=== PATIENT | female | born 1935 | race African-American/Black ===

== ENCOUNTER 2016-11-17 19:10 | Inpatient (IN) | payer MEDICARE, MEDICAID ==
[~2016-11-17] VITALS: Ht 160 cm; Wt 53.5 kg
[~2016-11-17 19:10] MED LIST: ACET1TAB12 PO; ASPI-1158 PO; ATOR10TA69 PO; CLOP75TA33 PO; DILT240C92 PO; FURO40TA5 PO; HYDR-3280 PO; LOSA100T14 PO; METO-293 PO; MINO2.5T19 PO; NEPVIT PO; NIFE60TA64 PO; OMEP20CA10 PO; PRAZ5CAP PO; TEMA30CA PO; TRAM50TA3 PO
[2016-11-17 19:30] VITALS: BP 105/83
[2016-11-17 20:00] VITALS: BP 160/68
[2016-11-17] MEDS ORDERED: METO25TA6 PO (20:30)
[2016-11-17] MEDS ORDERED: VALS320T2 PO (20:30)
[2016-11-17] MEDS ORDERED: MORP30TA66 PO (20:30)
[2016-11-17] MEDS ORDERED: POTA20TA82 PO (20:30)
[2016-11-17] MEDS ORDERED: MIRT15TA6 PO (20:30)
[2016-11-17] MEDS ORDERED: DOXA4TAB3 PO (20:30)
[2016-11-17] MEDS ORDERED: LEVOFLOXACIN 500MG PREMIX 100 ML IV SCH (20:45)
[2016-11-17] MEDS ORDERED: ONDANSETRON HCL 4MG/2ML VIAL IV PRN (20:45)
[2016-11-17] MEDS ORDERED: METOCLOPRAMIDE HCL 10MG TABLET PO PRN (20:45)
[2016-11-17] MEDS ORDERED: MEDICATION NOT ON FORMULARY EA (Morphine Sulfate 30 MG) PO SCH (20:45)
[2016-11-17] MEDS ORDERED: TEMAZEPAM 15MG CAPSULE PO PRN (21:45)
[2016-11-17] MEDS: MIRTAZAPINE 15MG TABLET PO SCH (21:54)
[2016-11-17] MEDS: ATORVASTATIN CALCIUM 10MG TABLET PO SCH (21:55)
[2016-11-17] MEDS: DOXAZOSIN MESYLATE 4MG TABLET PO SCH (21:55)
[2016-11-18] VITALS: BP 170/79
[2016-11-18 00:49] LABS: CLARITY URINE CLEAR (CLEAR); COLOR URINE YELLOW (YELLOW); GLUCOSE URINE NEGATIVE (NEGATIVE); KETONES URINE NEGATIVE (NEGATIVE); LEUKOCYTE ESTERASE URINE 1+ (NEGATIVE); NITRITE URINE NEGATIVE (NEGATIVE); OCCULT BLOOD URINE NEGATIVE (NEGATIVE); PH URINE 5.5 (4.5-8.0); PROTEIN URINE 1+ (NEGATIVE); SPECIFIC GRAVITY URINE 1.016 (1.005-1.030); UROBILINOGEN URINE 0.2 E.U./dL (0.2-1.0)
[2016-11-18 04:00] VITALS: BP 156/90
[2016-11-18 06:04] LABS: BASOPHILS % 0.3 % (0.0-2.0); EOSINOPHILS % 2.2 % (0.0-5.0); HEMATOCRIT. 36.5 % (36.0-48.0); HEMOGLOBIN. 12.1 g/dL (12.0-16.0); LYMPHOCYTES % 16.3 % (20.0-50.0); MEAN CORPUSCULAR HEMOGLOBIN 27.5 pg (28.0-32.0); MEAN CORPUSCULAR VOLUME 83.2 fL (81.0-99.0); MEAN PLATELET VOLUME 8.2 fl (7.4-10.4); MONOCYTES % 8.1 % (2.0-8.0); NEUTROPHILS % 73.1 % (40.0-76.0); PLATELET 200 x1000/uL (130-400); RED BLOOD CELL COUNT 4.38 mill/uL (4.2-5.4); RED CELL DISTRIBUTION WIDTH 14.5 % (11.6-14.6)
[2016-11-18 07:41] LABS: CARBON DIOXIDE 22 mEq/L (21-32); CHLORIDE 110 mEq/L (98-107)
[2016-11-18 08:00] VITALS: BP 144/59
[2016-11-18] MEDS ORDERED: ASPIRIN 81MG EC TABLET PO SCH (09:00)
[2016-11-18] MEDS: METOPROLOL TARTRATE 25MG TABLET PO SCH ×2 (09:15→21:00)
[2016-11-18] MEDS: MINOXIDIL 2.5MG TABLET PO SCH (09:15)
[2016-11-18] MEDS: NIFEDIPINE XL 90MG TAB PO SCH (09:15)
[2016-11-18] MEDS: FUROSEMIDE 40MG TABLET PO SCH (09:16)
[2016-11-18] MEDS: LOSARTAN POTASSIUM 100 MG TABLET PO SCH (09:16)
[2016-11-18] MEDS: POTASSIUM CHLORIDE 20MEQ TABLET SR PO SCH (09:16)
[2016-11-18] MEDS: OMEPRAZOLE 20MG CAPSULE EXTENDED RELEASE PO SCH (09:16)
[2016-11-18] MEDS: ENOXAPARIN 30MG/0.3ML SYR SUBCUT SCH (09:16)
[2016-11-18] MEDS ORDERED: NA PHOS,M-B/NA PHOS,DI-BA ENEMA 118ML PR NR (09:30)
[2016-11-18 12:00] VITALS: BP 122/53
[2016-11-18 12:08] LABS: AMMONIA 23 uMol/L (<32)
[2016-11-18 12:28] LABS: T4 FREE 1.14 ng/dL (0.76-1.46)
[2016-11-18] MEDS: DOCUSATE SODIUM 250MG CAPSULE PO SCH (12:39)
[2016-11-18] MEDS: LEVOFLOXACIN 250MG PREMIX 50 ML IV SCH (12:40)
[2016-11-18 12:47] LABS: FOLIC ACID (FOLATE) SERUM 9.4 ng/mL (>5.38)
[2016-11-18] MEDS ORDERED: METOCLOPRAMIDE HCL 5MG TABLET PO PRN (13:53)
[2016-11-18 16:00] VITALS: BP 106/55
[2016-11-18 20:00] VITALS: BP 110/54
[2016-11-18] MEDS ORDERED: LACTULOSE 20G/30ML UDC PO PRN (21:00)
[2016-11-18] MEDS: DOXAZOSIN MESYLATE 4MG TABLET PO SCH (21:55)
[2016-11-18] MEDS: ATORVASTATIN CALCIUM 10MG TABLET PO SCH (21:55)
[2016-11-18] MEDS: HYDROCORTISONE ACETATE 25MG SUPP PR SCH (21:55)
[2016-11-18] MEDS: MIRTAZAPINE 15MG TABLET PO SCH (21:55)
[2016-11-19] VITALS: BP 113/65
[2016-11-19 04:00] VITALS: BP 118/74
[2016-11-19 08:00] VITALS: BP 128/62
[2016-11-19] MEDS: OMEPRAZOLE 20MG CAPSULE EXTENDED RELEASE PO SCH (08:12)
[2016-11-19] MEDS: DOCUSATE SODIUM 250MG CAPSULE PO SCH (08:15)
[2016-11-19] MEDS: CLOPIDOGREL 75MG TABLET PO SCH (08:15)
[2016-11-19] MEDS: MINOXIDIL 2.5MG TABLET PO SCH (08:15)
[2016-11-19] MEDS: LOSARTAN POTASSIUM 100 MG TABLET PO SCH (08:16)
[2016-11-19] MEDS: HYDROCORTISONE ACETATE 25MG SUPP PR SCH ×2 (08:16→21:46)
[2016-11-19] MEDS: METOPROLOL TARTRATE 25MG TABLET PO SCH ×2 (08:16→17:07)
[2016-11-19] MEDS: POTASSIUM CHLORIDE 20MEQ TABLET SR PO SCH (08:16)
[2016-11-19] MEDS: FUROSEMIDE 40MG TABLET PO SCH (08:16)
[2016-11-19] MEDS: NIFEDIPINE XL 90MG TAB PO SCH (08:17)
[2016-11-19] MEDS: ENOXAPARIN 30MG/0.3ML SYR SUBCUT SCH (08:19)
[2016-11-19] MEDS: LEVOFLOXACIN 250MG PREMIX 50 ML IV SCH (11:58)
[2016-11-19 12:00] VITALS: BP 110/67
[2016-11-19] MEDS: ACETAMINOPHEN 325MG TABLET PO PRN (15:47)
[2016-11-19 16:00] VITALS: BP 86/42
[2016-11-19 16:30] LABS: BASOPHILS % 0.4 % (0.0-2.0); EOSINOPHILS % 1.6 % (0.0-5.0); HEMATOCRIT. 32.7 % (36.0-48.0); HEMOGLOBIN. 10.5 g/dL (12.0-16.0); LYMPHOCYTES % 20.6 % (20.0-50.0); MEAN CORPUSCULAR HEMOGLOBIN 27.1 pg (28.0-32.0); MEAN CORPUSCULAR VOLUME 84.4 fL (81.0-99.0); MEAN PLATELET VOLUME 8.2 fl (7.4-10.4); MONOCYTES % 8.7 % (2.0-8.0); NEUTROPHILS % 68.7 % (40.0-76.0); PLATELET 207 x1000/uL (130-400); RED BLOOD CELL COUNT 3.88 mill/uL (4.2-5.4); RED CELL DISTRIBUTION WIDTH 14.9 % (11.6-14.6)
[2016-11-19] MEDS: DOXAZOSIN MESYLATE 4MG TABLET PO SCH (17:07)
[2016-11-19 20:00] VITALS: BP 112/56
[2016-11-19] MEDS: MIRTAZAPINE 15MG TABLET PO SCH (21:46)
[2016-11-19] MEDS: ATORVASTATIN CALCIUM 10MG TABLET PO SCH (21:46)
[2016-11-20] VITALS (7 sets, daily range): BP systolic 107–137; BP diastolic 45–67
[2016-11-20 06:58] LABS: BASOPHILS % 0.5 % (0.0-2.0); EOSINOPHILS % 2.5 % (0.0-5.0); HEMATOCRIT. 29.8 % (36.0-48.0); HEMOGLOBIN. 9.7 g/dL (12.0-16.0); LYMPHOCYTES % 20.6 % (20.0-50.0); MEAN CORPUSCULAR HEMOGLOBIN 27.1 pg (28.0-32.0); MEAN CORPUSCULAR VOLUME 83.3 fL (81.0-99.0); MEAN PLATELET VOLUME 8.1 fl (7.4-10.4); MONOCYTES % 8.5 % (2.0-8.0); NEUTROPHILS % 67.9 % (40.0-76.0); PLATELET 184 x1000/uL (130-400); RED BLOOD CELL COUNT 3.58 mill/uL (4.2-5.4); RED CELL DISTRIBUTION WIDTH 14.4 % (11.6-14.6)
[2016-11-20] MEDS: CLOPIDOGREL 75MG TABLET PO SCH (08:53)
[2016-11-20] MEDS: FAMOTIDINE 20MG TABLET PO SCH (08:53)
[2016-11-20] MEDS: ENOXAPARIN 30MG/0.3ML SYR SUBCUT SCH (08:53)
[2016-11-20] MEDS: DOCUSATE SODIUM 250MG CAPSULE PO SCH (08:53)
[2016-11-20] MEDS: FUROSEMIDE 40MG TABLET PO SCH (08:54)
[2016-11-20] MEDS: HYDROCORTISONE ACETATE 25MG SUPP PR SCH ×2 (08:54→21:39)
[2016-11-20] MEDS: NIFEDIPINE XL 90MG TAB PO SCH (08:54)
[2016-11-20] MEDS: LOSARTAN POTASSIUM 100 MG TABLET PO SCH (08:55)
[2016-11-20] MEDS: MINOXIDIL 2.5MG TABLET PO SCH (08:56)
[2016-11-20] MEDS: POTASSIUM CHLORIDE 20MEQ TABLET SR PO SCH (08:56)
[2016-11-20] MEDS: METOPROLOL TARTRATE 25MG TABLET PO SCH ×2 (08:58→21:39)
[2016-11-20] MEDS: LEVOFLOXACIN 250MG PREMIX 50 ML IV SCH (11:38)
[2016-11-20] MEDS: DEXT 5%/0.45% NACL 1000ML 1,000 ML IV SCH (14:55)
[2016-11-20] MEDS: ACETAMINOPHEN 325MG TABLET PO PRN (15:18)
[2016-11-20] MEDS: ATORVASTATIN CALCIUM 10MG TABLET PO SCH (21:39)
[2016-11-20] MEDS: MIRTAZAPINE 15MG TABLET PO SCH (21:39)
[2016-11-20] MEDS: DOXAZOSIN MESYLATE 4MG TABLET PO SCH (21:39)
[2016-11-21] VITALS: BP 124/61
[2016-11-21 04:00] VITALS: BP 109/66
[2016-11-21] MEDS: DEXT 5%/0.45% NACL 1000ML 1,000 ML IV SCH (05:28)
[2016-11-21 05:52] LABS: BASOPHILS % 0.2 % (0.0-2.0); HEMATOCRIT. 29.3 % (36.0-48.0); HEMOGLOBIN. 9.5 g/dL (12.0-16.0); LYMPHOCYTES % 29.6 % (20.0-50.0); MEAN CORPUSCULAR HEMOGLOBIN 27.6 pg (28.0-32.0); MEAN CORPUSCULAR VOLUME 85.2 fL (81.0-99.0); MEAN PLATELET VOLUME 8.1 fl (7.4-10.4); MONOCYTES % 9.3 % (2.0-8.0); NEUTROPHILS % 57.9 % (40.0-76.0); PLATELET 175 x1000/uL (130-400); RED BLOOD CELL COUNT 3.44 mill/uL (4.2-5.4); RED CELL DISTRIBUTION WIDTH 14.8 % (11.6-14.6)
[2016-11-21 08:00] VITALS: BP 141/70
[2016-11-21] MEDS: MINOXIDIL 2.5MG TABLET PO SCH ×2 (09:00→16:41)
[2016-11-21] MEDS: DOCUSATE SODIUM 250MG CAPSULE PO SCH (09:30)
[2016-11-21] MEDS: NIFEDIPINE XL 90MG TAB PO SCH (09:31)
[2016-11-21] MEDS: CLOPIDOGREL 75MG TABLET PO SCH (09:31)
[2016-11-21] MEDS: METOPROLOL TARTRATE 25MG TABLET PO SCH ×2 (09:31→21:38)
[2016-11-21] MEDS: FAMOTIDINE 20MG TABLET PO SCH (09:32)
[2016-11-21] MEDS: POTASSIUM CHLORIDE 20MEQ TABLET SR PO SCH (09:32)
[2016-11-21] MEDS: ACETAMINOPHEN 325MG TABLET PO PRN (09:32)
[2016-11-21] MEDS: ENOXAPARIN 30MG/0.3ML SYR SUBCUT SCH (09:33)
[2016-11-21] MEDS: HYDROCORTISONE ACETATE 25MG SUPP PR SCH ×2 (09:33→21:37)
[2016-11-21 12:00] VITALS: BP 136/53
[2016-11-21 16:00] VITALS: BP 154/57
[2016-11-21 20:00] VITALS: BP 136/57
[2016-11-21] MEDS: DOXAZOSIN MESYLATE 4MG TABLET PO SCH (21:38)
[2016-11-21] MEDS: MIRTAZAPINE 15MG TABLET PO SCH (21:38)
[2016-11-21] MEDS: ATORVASTATIN CALCIUM 10MG TABLET PO SCH (21:38)
[2016-11-22] VITALS: BP 128/64
[2016-11-22] MEDS: DEXT 5%/0.45% NACL 1000ML 1,000 ML IV SCH ×2 (00:32→19:08)
[2016-11-22 04:00] VITALS: BP 160/62
[2016-11-22 06:34] LABS: BASOPHILS % 0.5 % (0.0-2.0); EOSINOPHILS % 2.6 % (0.0-5.0); HEMATOCRIT. 30.3 % (36.0-48.0); HEMOGLOBIN. 9.7 g/dL (12.0-16.0); LYMPHOCYTES % 23.7 % (20.0-50.0); MEAN CORPUSCULAR HEMOGLOBIN 27.2 pg (28.0-32.0); MEAN CORPUSCULAR VOLUME 84.5 fL (81.0-99.0); MONOCYTES % 8.8 % (2.0-8.0); NEUTROPHILS % 64.4 % (40.0-76.0); PLATELET 185 x1000/uL (130-400); RED BLOOD CELL COUNT 3.58 mill/uL (4.2-5.4); RED CELL DISTRIBUTION WIDTH 14.5 % (11.6-14.6)
[2016-11-22 07:45] VITALS: BP 152/70
[2016-11-22] MEDS: HYDROCORTISONE ACETATE 25MG SUPP PR SCH ×2 (09:00→21:41)
[2016-11-22] MEDS ORDERED: LEVOFLOXACIN 250MG TABLET PO SCH (11:00)
[2016-11-22] MEDS: ENOXAPARIN 30MG/0.3ML SYR SUBCUT SCH (11:36)
[2016-11-22] MEDS: CLOPIDOGREL 75MG TABLET PO SCH (11:36)
[2016-11-22] MEDS: FAMOTIDINE 20MG TABLET PO SCH (11:36)
[2016-11-22] MEDS: METOPROLOL TARTRATE 25MG TABLET PO SCH ×2 (11:37→21:42)
[2016-11-22] MEDS: MINOXIDIL 2.5MG TABLET PO SCH (11:38)
[2016-11-22] MEDS: NIFEDIPINE XL 90MG TAB PO SCH (11:38)
[2016-11-22] MEDS: DOCUSATE SODIUM 250MG CAPSULE PO SCH (11:38)
[2016-11-22] MEDS: ACETAMINOPHEN 325MG TABLET PO PRN ×2 (11:48→21:42)
[2016-11-22 12:00] VITALS: BP 140/56
[2016-11-22 16:00] VITALS: BP 127/55
[2016-11-22 20:00] VITALS: BP 150/65
[2016-11-22] MEDS ORDERED: ATORVASTATIN CALCIUM 20MG TABLET PO SCH (21:00)
[2016-11-22] MEDS: MIRTAZAPINE 15MG TABLET PO SCH (21:41)
[2016-11-22] MEDS: DOXAZOSIN MESYLATE 4MG TABLET PO SCH (21:42)
[2016-11-23] VITALS: BP 113/59
[2016-11-23 04:00] VITALS: BP 103/41
[2016-11-23 07:40] VITALS: BP 122/71
[2016-11-23 08:00] VITALS: BP 122/71
[2016-11-23] MEDS: DOCUSATE SODIUM 250MG CAPSULE PO SCH (09:01)
[2016-11-23] MEDS: METOPROLOL TARTRATE 25MG TABLET PO SCH (09:01)
[2016-11-23] MEDS: MINOXIDIL 2.5MG TABLET PO SCH (09:01)
[2016-11-23] MEDS: CLOPIDOGREL 75MG TABLET PO SCH (09:01)
[2016-11-23] MEDS: FAMOTIDINE 20MG TABLET PO SCH (09:01)
[2016-11-23] MEDS: NIFEDIPINE XL 90MG TAB PO SCH (09:01)
[2016-11-23] MEDS: HYDROCORTISONE ACETATE 25MG SUPP PR SCH (09:02)
[2016-11-23] MEDS: ENOXAPARIN 30MG/0.3ML SYR SUBCUT SCH (09:02)
[2016-11-24] MEDS ORDERED: LEVOFLOXACIN 250MG TABLET PO SCH (11:00)
== END 2016-11-23 11:50 | disposition home or self-care (01) | DRG 682 ==
LOC: 7WST 19:10
PROVIDERS: ADMIT Internal Medicine Nephrology; ATTEND Internal Medicine Nephrology
DX: N17.9 Acute kidney failure, unspecified (principal); G92 Toxic encephalopathy; I43 Cardiomyopathy in diseases classified elsewhere; I13.0 Hypertensive heart and chronic kidney disease with heart failure and stage 1 through stage 4 chronic kidney disease, or unspecified chronic kidney disease; I50.30 Unspecified diastolic (congestive) heart failure; F03.90 Unspecified dementia, unspecified severity, without behavioral disturbance, psychotic disturbance, mood disturbance, and anxiety; N39.0 Urinary tract infection, site not specified; K59.00 Constipation, unspecified; N13.9 Obstructive and reflux uropathy, unspecified; E11.22 Type 2 diabetes mellitus with diabetic chronic kidney disease; D64.9 Anemia, unspecified; E78.00 Pure hypercholesterolemia, unspecified; E78.5 Hyperlipidemia, unspecified; G89.4 Chronic pain syndrome; I34.0 Nonrheumatic mitral (valve) insufficiency; J44.9 Chronic obstructive pulmonary disease, unspecified; K64.9 Unspecified hemorrhoids; N18.2 Chronic kidney disease, stage 2 (mild); Z79.02 Long term (current) use of antithrombotics/antiplatelets; Z79.899 Other long term (current) drug therapy; Z86.73 Personal history of transient ischemic attack (TIA), and cerebral infarction without residual deficits; Z91.19 Patient's noncompliance with other medical treatment and regimen; Z95.0 Presence of cardiac pacemaker
CPT/HCPCS: 36415; 70450; 80048; 80053; 80061; 81001; 82140; 82607; 82746; 83036; 84439; 84443; 84481; 85025; 87086; 93005; 93306; 93880; 97163; 97166; 97530; J1650; J1956; J3490; A4315

== ENCOUNTER 2018-03-07 14:58 | Emergency (ER) | payer MEDICARE, MEDICAID ==
[~2018-03-07] VITALS: Ht 160 cm; Wt 49.0 kg
[~2018-03-07 14:58] MED LIST changes: -ACET1TAB12 PO; -ATOR10TA69 PO; +ATOR20TA65 PO; +CLON0.2T PO; +COR6 PO; -DILT240C92 PO; +DOCU-150 PO; +DOXA4TAB3 PO; +FAMO20TA8 PO; -FURO40TA5 PO; -HYDR-3280 PO; +HYDR100T26 PO; -LOSA100T14 PO; -METO-293 PO; -MINO2.5T19 PO; -NEPVIT PO; -NIFE60TA64 PO; -OMEP20CA10 PO; -PRAZ5CAP PO; -TEMA30CA PO; -TRAM50TA3 PO
[2018-03-07 15:33] VITALS: BP 172/71
== END 2018-03-07 20:20 | disposition left against medical advice (07) ==
LOC: EDBD → ER 14:58
DX: Z53.21 Procedure and treatment not carried out due to patient leaving prior to being seen by health care provider (principal)
CPT/HCPCS: 93005

== ENCOUNTER 2018-04-29 08:17 | Inpatient (IN) | payer MEDICARE, MEDICAID ==
[~2018-04-29] VITALS: Ht 162.6 cm; Wt 48.5 kg
[2018-04-29] MEDS ORDERED: HYDRALAZINE 20MG/ML VIAL IV ONE (09:00)
[2018-04-29] MEDS ORDERED: NITROGLYCERIN 0.4MG TABLET SL SL PRN (09:00)
[2018-04-29] MEDS ORDERED: NITROGLYCERIN OINT 1GM/INCH UDPKT TD ONE (09:00)
[2018-04-29 09:42] LABS: BASOPHILS % 0.4 % (0.0-2.0); EOSINOPHILS % 1.6 % (0.0-5.0); HEMOGLOBIN. 10.5 g/dL (12.0-16.0); LYMPHOCYTES % 18.6 % (20.0-50.0); MEAN CORPUSCULAR HEMOGLOBIN 27.3 pg (28.0-32.0); MEAN CORPUSCULAR VOLUME 86.1 fL (81.0-99.0); MEAN PLATELET VOLUME 7.6 fl (7.4-10.4); MONOCYTES % 4.6 % (2.0-8.0); NEUTROPHILS % 74.8 % (40.0-76.0); PLATELET 151 x1000/uL (130-400); RED BLOOD CELL COUNT 3.83 mill/uL (4.2-5.4); RED CELL DISTRIBUTION WIDTH 15.6 % (11.6-14.6)
[2018-04-29 10:07] LABS: CHLORIDE 120 mEq/L (98-107)
[2018-04-29] MEDS ORDERED: ASPIRIN 325MG TABLET PO ONE (11:30)
[2018-04-29] MEDS ORDERED: FUROSEMIDE 40MG/4ML VIAL IVP ONE (11:30)
[2018-04-29] MEDS ORDERED: ACETAMINOPHEN 650MG/20.3ML UDC PO ONE (13:45)
[2018-04-29 20:30] VITALS: BP 170/75
[2018-04-29] MEDS ORDERED: ACETAMINOPHEN 325MG TABLET PO PRN (22:00)
[2018-04-29] MEDS: CLONIDINE 0.1MG TABLET PO PRN (22:46)
[2018-04-30] VITALS (7 sets, daily range): BP systolic 107–188; BP diastolic 69–98
[2018-04-30] MEDS: HYDRALAZINE HCL 100MG TABLET PO SCH ×3 (05:19→21:05)
[2018-04-30] MEDS: CLONIDINE 0.1MG TABLET PO PRN ×2 (06:22→13:40)
[2018-04-30] MEDS ORDERED: INFLUENZA VIRUS VACCINE(AFLURIA) 0.5ML SYR IM ONE (07:00)
[2018-04-30] MEDS ORDERED: FUROSEMIDE 40MG/4ML VIAL IVP SCH (09:00)
[2018-04-30] MEDS ORDERED: CARVEDILOL 6.25 MG TABLET PO SCH (09:00)
[2018-04-30] MEDS: ASPIRIN 81MG TABLET PO SCH (09:05)
[2018-04-30] MEDS: ENOXAPARIN 30MG/0.3ML SYR SUBCUT SCH (09:05)
[2018-04-30] MEDS: DOCUSATE SODIUM 100MG CAPSULE PO SCH (09:05)
[2018-04-30] MEDS: CLOPIDOGREL 75MG TABLET PO SCH (09:05)
[2018-04-30] MEDS: FAMOTIDINE 20MG TABLET PO SCH (09:08)
[2018-04-30] MEDS: FUROSEMIDE 40MG/4ML VIAL IVP SCH ×2 (10:21→20:37)
[2018-04-30 10:36] LABS: BG BASE EXCESS -6.8 mmol/L (-2.0-2.0); BG CARBOXYHEMOGLOBIN 0.6 % (0.5-1.5); BG DEOXYHEMOGLOBIN 5.7 % (0.0-5.0); BG FRACTION INSPIRED OXYGEN 21; BG METHEMOGLOBIN 0.3 % (0.0-1.5); BG OXYGEN SATURATION 94.2 % (92.0-98.5); BG OXYHEMOGLOBIN 93.4 % (94.0-97.0); BG PCO2 28.4 mmHg (35.0-45.0); BG PH 7.394 (7.350-7.450); BG PO2 70.1 mmHg (75.0-100.0); BG SAMPLE SITE RIGHT RADIAL; BG TOTAL HEMOGLOBIN 10.8 g/dL (12.0-18.0); BG VENT MODE ROOM AIR
[2018-04-30 11:53] LABS: BASOPHILS % 0.4 % (0.0-2.0); EOSINOPHILS % 3.7 % (0.0-5.0); HEMATOCRIT. 32.3 % (36.0-48.0); HEMOGLOBIN. 10.6 g/dL (12.0-16.0); LYMPHOCYTES % 20.4 % (20.0-50.0); MEAN CORPUSCULAR HEMOGLOBIN 27.6 pg (28.0-32.0); MEAN CORPUSCULAR VOLUME 83.9 fL (81.0-99.0); MONOCYTES % 7.4 % (2.0-8.0); NEUTROPHILS % 68.1 % (40.0-76.0); PLATELET 171 x1000/uL (130-400); RED BLOOD CELL COUNT 3.85 mill/uL (4.2-5.4); RED CELL DISTRIBUTION WIDTH 15.5 % (11.6-14.6)
[2018-04-30 16:09] LABS: CREATINE KINASE MB FRACTION 5.1 ng/mL (0.5-3.6)
[2018-04-30 19:07] LABS: ETHANOL BLOOD < 10 mg/dL
[2018-04-30 19:13] LABS: T4 FREE 1.19 ng/dL (0.76-1.46)
[2018-04-30 19:23] LABS: FOLIC ACID (FOLATE) SERUM 12.4 ng/mL (>5.38)
[2018-04-30] MEDS: DOXAZOSIN MESYLATE 4MG TABLET PO SCH (20:28)
[2018-04-30] MEDS: CARVEDILOL 12.5MG TABLET PO SCH (20:29)
[2018-04-30] MEDS: ATORVASTATIN CALCIUM 20MG TABLET PO SCH (20:29)
[2018-05-01] VITALS (7 sets, daily range): BP systolic 152–175; BP diastolic 64–88
[2018-05-01] MEDS: CLONIDINE 0.1MG TABLET PO PRN ×2 (04:31→20:52)
[2018-05-01] MEDS: HYDRALAZINE HCL 100MG TABLET PO SCH ×3 (05:11→21:01)
[2018-05-01] MEDS: FUROSEMIDE 40MG/4ML VIAL IVP SCH ×2 (05:12→08:30)
[2018-05-01 05:48] LABS: BASOPHILS % 0.6 % (0.0-2.0); EOSINOPHILS % 4.2 % (0.0-5.0); HEMATOCRIT. 32.1 % (36.0-48.0); HEMOGLOBIN. 10.4 g/dL (12.0-16.0); LYMPHOCYTES % 30.2 % (20.0-50.0); MEAN CORPUSCULAR HEMOGLOBIN 27.4 pg (28.0-32.0); MEAN CORPUSCULAR VOLUME 84.3 fL (81.0-99.0); MEAN PLATELET VOLUME 8.3 fl (7.4-10.4); MONOCYTES % 8.8 % (2.0-8.0); NEUTROPHILS % 56.2 % (40.0-76.0); PLATELET 160 x1000/uL (130-400); RED BLOOD CELL COUNT 3.81 mill/uL (4.2-5.4); RED CELL DISTRIBUTION WIDTH 15.7 % (11.6-14.6)
[2018-05-01 08:01] LABS: PHOSPHORUS 3.9 mg/dL (2.5-4.9)
[2018-05-01] MEDS: CLOPIDOGREL 75MG TABLET PO SCH (08:29)
[2018-05-01] MEDS: DOCUSATE SODIUM 100MG CAPSULE PO SCH ×3 (08:29→17:06)
[2018-05-01] MEDS: CARVEDILOL 12.5MG TABLET PO SCH ×2 (08:30→20:52)
[2018-05-01] MEDS: ENOXAPARIN 30MG/0.3ML SYR SUBCUT SCH (08:30)
[2018-05-01] MEDS: FAMOTIDINE 20MG TABLET PO SCH (08:30)
[2018-05-01] MEDS: ASPIRIN 81MG TABLET PO SCH (08:30)
[2018-05-01] MEDS ORDERED: SODIUM POLYSTYRENE SULFONATE 15 G/60 ML BOT PO NR (11:30)
[2018-05-01] MEDS: AMLODIPINE 10MG TABLET PO SCH (12:06)
[2018-05-01] MEDS: ATORVASTATIN CALCIUM 20MG TABLET PO SCH (20:51)
[2018-05-01] MEDS: DOXAZOSIN MESYLATE 4MG TABLET PO SCH (20:52)
[2018-05-02 01:40] VITALS: BP 135/72
[2018-05-02 04:00] VITALS: BP 178/92
[2018-05-02] MEDS: FUROSEMIDE 40MG/4ML VIAL IVP SCH ×2 (05:41→17:43)
[2018-05-02] MEDS: HYDRALAZINE HCL 100MG TABLET PO SCH ×3 (05:41→21:02)
[2018-05-02 08:00] VITALS: BP 132/82
[2018-05-02] MEDS: CLOPIDOGREL 75MG TABLET PO SCH (08:37)
[2018-05-02] MEDS: ENOXAPARIN 30MG/0.3ML SYR SUBCUT SCH (08:37)
[2018-05-02] MEDS: FAMOTIDINE 20MG TABLET PO SCH (08:38)
[2018-05-02] MEDS: ASPIRIN 81MG TABLET PO SCH (08:38)
[2018-05-02] MEDS: DOCUSATE SODIUM 100MG CAPSULE PO SCH ×2 (08:38→17:43)
[2018-05-02] MEDS: CARVEDILOL 12.5MG TABLET PO SCH ×2 (08:38→20:25)
[2018-05-02] MEDS: AMLODIPINE 10MG TABLET PO SCH (08:44)
[2018-05-02 08:52] LABS: BASOPHILS % 0.2 % (0.0-2.0); EOSINOPHILS % 4.2 % (0.0-5.0); HEMATOCRIT. 30.6 % (36.0-48.0); LYMPHOCYTES % 36.3 % (20.0-50.0); MEAN CORPUSCULAR HEMOGLOBIN 26.9 pg (28.0-32.0); MEAN CORPUSCULAR VOLUME 82.6 fL (81.0-99.0); MEAN PLATELET VOLUME 7.9 fl (7.4-10.4); MONOCYTES % 9.8 % (2.0-8.0); NEUTROPHILS % 49.5 % (40.0-76.0); PLATELET 158 x1000/uL (130-400); RED CELL DISTRIBUTION WIDTH 15.4 % (11.6-14.6)
[2018-05-02 12:00] VITALS: BP 142/77
[2018-05-02 16:00] VITALS: BP 137/81
[2018-05-02 20:00] VITALS: BP 133/73
[2018-05-02] MEDS: ATORVASTATIN CALCIUM 20MG TABLET PO SCH (20:25)
[2018-05-02] MEDS: DOXAZOSIN MESYLATE 4MG TABLET PO SCH (20:25)
[2018-05-03] VITALS (8 sets, daily range): BP systolic 123–161; BP diastolic 66–81
[2018-05-03] MEDS: FUROSEMIDE 40MG/4ML VIAL IVP SCH ×2 (06:03→17:09)
[2018-05-03] MEDS: HYDRALAZINE HCL 100MG TABLET PO SCH ×3 (06:03→21:44)
[2018-05-03] MEDS: AMLODIPINE 10MG TABLET PO SCH (09:00)
[2018-05-03] MEDS: ENOXAPARIN 30MG/0.3ML SYR SUBCUT SCH (09:17)
[2018-05-03] MEDS: ASPIRIN 81MG TABLET PO SCH (09:18)
[2018-05-03] MEDS: CARVEDILOL 12.5MG TABLET PO SCH (09:18)
[2018-05-03] MEDS: DOCUSATE SODIUM 100MG CAPSULE PO SCH ×2 (09:18→17:09)
[2018-05-03] MEDS: FAMOTIDINE 20MG TABLET PO SCH (09:18)
[2018-05-03] MEDS: CLOPIDOGREL 75MG TABLET PO SCH (09:19)
[2018-05-03 17:06] LABS: BARBITURATE SCREEN Negative ug/mL (Cutoff:0.1); BENZODIAZEPINE SCREEN Negative ng/mL (Cutoff:20); OPIATES SCREEN Negative ng/mL (Cutoff:5); PHENCYCLIDINE SCREEN Negative ng/mL (Cutoff:8)
[2018-05-03] MEDS: ATORVASTATIN CALCIUM 20MG TABLET PO SCH (21:44)
[2018-05-03] MEDS: DOXAZOSIN MESYLATE 4MG TABLET PO SCH (21:44)
[2018-05-03] MEDS: CARVEDILOL 25MG TABLET PO SCH (21:44)
[2018-05-04 04:00] VITALS: BP 145/75
[2018-05-04] MEDS: HYDRALAZINE HCL 100MG TABLET PO SCH ×3 (05:44→21:02)
[2018-05-04] MEDS: FUROSEMIDE 40MG/4ML VIAL IVP SCH ×2 (05:44→16:27)
[2018-05-04 08:00] VITALS: BP 94/70
[2018-05-04] MEDS: DOCUSATE SODIUM 100MG CAPSULE PO SCH ×2 (08:39→17:44)
[2018-05-04] MEDS: CLOPIDOGREL 75MG TABLET PO SCH (08:39)
[2018-05-04] MEDS: FAMOTIDINE 20MG TABLET PO SCH (08:39)
[2018-05-04] MEDS: ASPIRIN 81MG TABLET PO SCH (08:39)
[2018-05-04] MEDS: ENOXAPARIN 30MG/0.3ML SYR SUBCUT SCH (08:40)
[2018-05-04] MEDS: CARVEDILOL 25MG TABLET PO SCH ×2 (08:40→20:11)
[2018-05-04] MEDS: AMLODIPINE 10MG TABLET PO SCH (08:40)
[2018-05-04 12:00] VITALS: BP 108/78
[2018-05-04 16:00] VITALS: BP 156/96
[2018-05-04 20:00] VITALS: BP 164/78
[2018-05-04] MEDS: DOXAZOSIN MESYLATE 4MG TABLET PO SCH (20:11)
[2018-05-04] MEDS: ATORVASTATIN CALCIUM 20MG TABLET PO SCH (20:11)
[2018-05-05] VITALS: BP 135/76
[2018-05-05 04:00] VITALS: BP 157/68
[2018-05-05] MEDS: FUROSEMIDE 40MG/4ML VIAL IVP SCH ×2 (06:34→17:53)
[2018-05-05] MEDS: HYDRALAZINE HCL 100MG TABLET PO SCH ×3 (06:35→21:01)
[2018-05-05 08:00] VITALS: BP 150/75
[2018-05-05] MEDS: FAMOTIDINE 20MG TABLET PO SCH (09:10)
[2018-05-05] MEDS: ASPIRIN 81MG TABLET PO SCH (09:10)
[2018-05-05] MEDS: DOCUSATE SODIUM 100MG CAPSULE PO SCH ×2 (09:10→17:53)
[2018-05-05] MEDS: CLOPIDOGREL 75MG TABLET PO SCH (09:10)
[2018-05-05] MEDS: AMLODIPINE 10MG TABLET PO SCH (09:10)
[2018-05-05] MEDS: CARVEDILOL 25MG TABLET PO SCH ×2 (09:10→21:01)
[2018-05-05] MEDS: ENOXAPARIN 30MG/0.3ML SYR SUBCUT SCH (09:11)
[2018-05-05 11:08] LABS: BASOPHILS % 0.6 % (0.0-2.0); EOSINOPHILS % 3.4 % (0.0-5.0); HEMATOCRIT. 33.5 % (36.0-48.0); HEMOGLOBIN. 10.9 g/dL (12.0-16.0); LYMPHOCYTES % 26.3 % (20.0-50.0); MEAN CORPUSCULAR HEMOGLOBIN 27.3 pg (28.0-32.0); MEAN CORPUSCULAR VOLUME 83.6 fL (81.0-99.0); MONOCYTES % 8.4 % (2.0-8.0); NEUTROPHILS % 61.3 % (40.0-76.0); PLATELET 198 x1000/uL (130-400); RED CELL DISTRIBUTION WIDTH 15.6 % (11.6-14.6)
[2018-05-05 12:00] VITALS: BP 134/60
[2018-05-05 16:00] VITALS: BP 129/69
[2018-05-05 20:00] VITALS: BP 127/73
[2018-05-05] MEDS: DOXAZOSIN MESYLATE 4MG TABLET PO SCH (21:01)
[2018-05-05] MEDS: ATORVASTATIN CALCIUM 20MG TABLET PO SCH (21:01)
[2018-05-06] VITALS: BP 113/69
[2018-05-06 04:00] VITALS: BP 138/64
[2018-05-06] MEDS: HYDRALAZINE HCL 100MG TABLET PO SCH ×3 (05:24→21:37)
[2018-05-06] MEDS: FUROSEMIDE 40MG/4ML VIAL IVP SCH (05:51)
[2018-05-06] MEDS: FAMOTIDINE 20MG TABLET PO SCH (07:48)
[2018-05-06] MEDS: ASPIRIN 81MG TABLET PO SCH (07:48)
[2018-05-06] MEDS: CLOPIDOGREL 75MG TABLET PO SCH (07:48)
[2018-05-06] MEDS: AMLODIPINE 10MG TABLET PO SCH (07:48)
[2018-05-06] MEDS: DOCUSATE SODIUM 100MG CAPSULE PO SCH ×2 (07:48→18:13)
[2018-05-06] MEDS: CARVEDILOL 25MG TABLET PO SCH ×2 (07:49→21:37)
[2018-05-06] MEDS: ENOXAPARIN 30MG/0.3ML SYR SUBCUT SCH (07:50)
[2018-05-06 08:00] VITALS: BP 166/71
[2018-05-06 09:14] LABS: BASOPHILS % 0.5 % (0.0-2.0); EOSINOPHILS % 3.2 % (0.0-5.0); HEMATOCRIT. 32.2 % (36.0-48.0); HEMOGLOBIN. 10.4 g/dL (12.0-16.0); MEAN CORPUSCULAR HEMOGLOBIN 26.7 pg (28.0-32.0); MEAN CORPUSCULAR VOLUME 82.4 fL (81.0-99.0); MEAN PLATELET VOLUME 7.8 fl (7.4-10.4); MONOCYTES % 11.4 % (2.0-8.0); NEUTROPHILS % 57.9 % (40.0-76.0); PLATELET 189 x1000/uL (130-400); RED CELL DISTRIBUTION WIDTH 15.6 % (11.6-14.6)
[2018-05-06] MEDS ORDERED: SODIUM CHLORIDE 0.9% 500 ML IV ONE (10:15)
[2018-05-06] MEDS ORDERED: SODIUM CHLORIDE 0.45% 1,000 ML IV SCH (10:15)
[2018-05-06 12:00] VITALS: BP 110/68
[2018-05-06 16:00] VITALS: BP 126/57
[2018-05-06 20:00] VITALS: BP 120/52
[2018-05-06] MEDS: ATORVASTATIN CALCIUM 20MG TABLET PO SCH (21:37)
[2018-05-06] MEDS: DOXAZOSIN MESYLATE 4MG TABLET PO SCH (21:37)
[2018-05-07] VITALS: BP 128/61
[2018-05-07 04:00] VITALS: BP 136/72
[2018-05-07 05:40] LABS: BASOPHILS % 0.5 % (0.0-2.0); EOSINOPHILS % 3.6 % (0.0-5.0); HEMATOCRIT. 31.6 % (36.0-48.0); HEMOGLOBIN. 10.2 g/dL (12.0-16.0); LYMPHOCYTES % 32.1 % (20.0-50.0); MEAN CORPUSCULAR VOLUME 83.4 fL (81.0-99.0); MEAN PLATELET VOLUME 8.3 fl (7.4-10.4); MONOCYTES % 10.5 % (2.0-8.0); NEUTROPHILS % 53.3 % (40.0-76.0); PLATELET 173 x1000/uL (130-400); RED BLOOD CELL COUNT 3.79 mill/uL (4.2-5.4)
[2018-05-07] MEDS: HYDRALAZINE HCL 100MG TABLET PO SCH ×3 (05:44→21:01)
[2018-05-07 08:00] VITALS: BP 144/66
[2018-05-07] MEDS: DOCUSATE SODIUM 100MG CAPSULE PO SCH ×2 (08:57→18:06)
[2018-05-07] MEDS: CARVEDILOL 25MG TABLET PO SCH ×2 (08:57→20:14)
[2018-05-07] MEDS: AMLODIPINE 10MG TABLET PO SCH (08:57)
[2018-05-07] MEDS: ENOXAPARIN 30MG/0.3ML SYR SUBCUT SCH (08:58)
[2018-05-07] MEDS: CLOPIDOGREL 75MG TABLET PO SCH (08:58)
[2018-05-07] MEDS: ASPIRIN 81MG TABLET PO SCH (08:58)
[2018-05-07] MEDS: FAMOTIDINE 20MG TABLET PO SCH (08:58)
[2018-05-07 12:00] VITALS: BP 114/62
[2018-05-07 16:00] VITALS: BP 120/78
[2018-05-07 20:00] VITALS: BP 129/55
[2018-05-07] MEDS: ATORVASTATIN CALCIUM 20MG TABLET PO SCH (20:14)
[2018-05-07] MEDS: DOXAZOSIN MESYLATE 4MG TABLET PO SCH (20:14)
[2018-05-08] VITALS: BP 126/63
[2018-05-08 04:00] VITALS: BP 145/68
[2018-05-08] MEDS: HYDRALAZINE HCL 100MG TABLET PO SCH ×2 (05:52→14:17)
[2018-05-08 08:00] VITALS: BP 143/69
[2018-05-08] MEDS: ASPIRIN 81MG TABLET PO SCH (08:55)
[2018-05-08] MEDS: AMLODIPINE 10MG TABLET PO SCH (08:55)
[2018-05-08] MEDS: CLOPIDOGREL 75MG TABLET PO SCH (08:55)
[2018-05-08] MEDS: CARVEDILOL 25MG TABLET PO SCH (08:56)
[2018-05-08] MEDS: FAMOTIDINE 20MG TABLET PO SCH (08:56)
[2018-05-08] MEDS: ENOXAPARIN 30MG/0.3ML SYR SUBCUT SCH (08:56)
[2018-05-08] MEDS: DOCUSATE SODIUM 100MG CAPSULE PO SCH (09:00)
[2018-05-08 12:00] VITALS: BP 141/66
[2018-05-08 16:00] VITALS: BP 128/61
== END 2018-05-08 17:46 | disposition home health service (06) | DRG 291 ==
LOC: EDBD → ER 08:23 → EDBEDREQ 11:28 → 7WST 12:05 → EDBEDREQ 12:08 → EDBEDREQTM 12:08 → ENRESERV 19:33
PROVIDERS: ADMIT Internal Medicine Nephrology; ATTEND Internal Medicine Nephrology
PROC: 4A00X4Z Measurement of Central Nervous Electrical Activity, External Approach (ICD-10-PCS; principal; 2018-05-01)
DX: I13.0 Hypertensive heart and chronic kidney disease with heart failure and stage 1 through stage 4 chronic kidney disease, or unspecified chronic kidney disease (principal); G92 Toxic encephalopathy; I50.33 Acute on chronic diastolic (congestive) heart failure; N17.9 Acute kidney failure, unspecified; M94.0 Chondrocostal junction syndrome [Tietze]; D64.9 Anemia, unspecified; E11.22 Type 2 diabetes mellitus with diabetic chronic kidney disease; E78.00 Pure hypercholesterolemia, unspecified; E78.5 Hyperlipidemia, unspecified; G40.909 Epilepsy, unspecified, not intractable, without status epilepticus; N18.2 Chronic kidney disease, stage 2 (mild); F03.90 Unspecified dementia, unspecified severity, without behavioral disturbance, psychotic disturbance, mood disturbance, and anxiety; I25.118 Atherosclerotic heart disease of native coronary artery with other forms of angina pectoris; I25.2 Old myocardial infarction; Z86.73 Personal history of transient ischemic attack (TIA), and cerebral infarction without residual deficits; Z91.19 Patient's noncompliance with other medical treatment and regimen; Z95.810 Presence of automatic (implantable) cardiac defibrillator; Z79.82 Long term (current) use of aspirin; Z79.899 Other long term (current) drug therapy
CPT/HCPCS: 36415; 36600; 71045; 80048; 80061; 80307; 80320; 82140; 82375; 82550; 82553; 82607; 82746; 82805; 83036; 83735; 83880; 84100; 84439; 84443; 84481; 84484; 90686; 93005; 93306; 93970; 96374; 96375; 99285; A6261; J0360; J1650; J1940; G0480

== ENCOUNTER 2018-05-23 13:21 | Inpatient (IN) | payer MEDICAID, MEDICARE ==
[~2018-05-23] VITALS: Ht 160 cm; Wt 51.3 kg
[2018-05-23] MEDS ORDERED: LEVOFLOXACIN 750MG PREMIX 150 ML IV ONE (14:00)
[2018-05-23] MEDS ORDERED: SODIUM CHLORIDE 0.9% 1000ML BAG (SEPSIS BOLUS) IV ONE (14:00)
[2018-05-23 14:12] LABS: BASOPHILS % 0.4 % (0.0-2.0); EOSINOPHILS % 1.5 % (0.0-5.0); HEMATOCRIT. 29.3 % (36.0-48.0); HEMOGLOBIN. 9.6 g/dL (12.0-16.0); LYMPHOCYTES % 19.1 % (20.0-50.0); MEAN CORPUSCULAR HEMOGLOBIN 27.2 pg (28.0-32.0); MEAN CORPUSCULAR VOLUME 83.2 fL (81.0-99.0); MEAN PLATELET VOLUME 7.4 fl (7.4-10.4); MONOCYTES % 5.7 % (2.0-8.0); NEUTROPHILS % 73.3 % (40.0-76.0); PLATELET 157 x1000/uL (130-400); RED BLOOD CELL COUNT 3.52 mill/uL (4.2-5.4); RED CELL DISTRIBUTION WIDTH 15.3 % (11.6-14.6)
[2018-05-23 14:21] LABS: INR 1.1; PARTIAL THROMBOPLASTIN TIME 21.7 sec (23.4-31.0); PROTHROMBIN TIME 11.1 sec (9.6-11.0)
[2018-05-23 14:47] LABS: CHLORIDE 118 mEq/L (98-107)
[2018-05-23] MEDS ORDERED: LEVOFLOXACIN 500MG PREMIX 100 ML IV SCH (16:15)
[2018-05-23] MEDS ORDERED: HYDROMORPHONE HCL/PF 2MG/ML CPJ IV PRN (16:15)
[2018-05-23] MEDS ORDERED: CLONIDINE 0.1MG TABLET PO PRN (16:15)
[2018-05-23] MEDS ORDERED: ACETAMINOPHEN 325MG TABLET PO PRN (16:15)
[2018-05-23] MEDS ORDERED: ASPIRIN 300MG SUPP PR ONE (16:15)
[2018-05-23] MEDS ORDERED: ENOXAPARIN 30MG/0.3ML SYR SUBCUT NR (18:00)
[2018-05-23 21:12] LABS: CLARITY URINE CLEAR (CLEAR); COLOR URINE YELLOW (YELLOW); KETONES URINE NEGATIVE (NEGATIVE); LEUKOCYTE ESTERASE URINE NEGATIVE (NEGATIVE); NITRITE URINE NEGATIVE (NEGATIVE); OCCULT BLOOD URINE NEGATIVE (NEGATIVE); PH URINE 5.5 (4.5-8.0); PROTEIN URINE 1+ (NEGATIVE); SPECIFIC GRAVITY URINE 1.011 (1.005-1.030); UROBILINOGEN URINE 0.2 E.U./dL (0.2-1.0)
[2018-05-23 22:05] VITALS: BP 158/76
[2018-05-23 22:15] VITALS: BP 158/76
[2018-05-23 23:51] VITALS: BP 199/77
[2018-05-24] VITALS (8 sets, daily range): BP systolic 152–189; BP diastolic 53–89
[2018-05-24] MEDS: DEXTROSE 5% WATER 1,000 ML IV SCH ×2 (00:14→22:00)
[2018-05-24] MEDS: IPRATROPIUM/ALBUTEROL 0.5-3(2.5)MG/3ML NEB INH SCH ×4 (01:07→21:41)
[2018-05-24 06:08] LABS: BASOPHILS % 0.6 % (0.0-2.0); EOSINOPHILS % 2.2 % (0.0-5.0); HEMATOCRIT. 29.1 % (36.0-48.0); HEMOGLOBIN. 9.5 g/dL (12.0-16.0); MEAN CORPUSCULAR HEMOGLOBIN 27.3 pg (28.0-32.0); MEAN CORPUSCULAR VOLUME 83.6 fL (81.0-99.0); MONOCYTES % 8.3 % (2.0-8.0); NEUTROPHILS % 67.9 % (40.0-76.0); PLATELET 126 x1000/uL (130-400); RED BLOOD CELL COUNT 3.48 mill/uL (4.2-5.4); RED CELL DISTRIBUTION WIDTH 14.9 % (11.6-14.6)
[2018-05-24 06:37] LABS: CHLORIDE 117 mEq/L (98-107)
[2018-05-24 06:47] LABS: LDL CHOLESTEROL 98 mg/dL (5-100)
[2018-05-24 06:48] LABS: CREATINE KINASE 56 IU/L (26-192)
[2018-05-24 06:49] LABS: HDL CHOLESTEROL 54 mg/dL (40-59)
[2018-05-24] MEDS: HYDRALAZINE HCL 100MG TABLET PO SCH ×3 (07:04→21:43)
[2018-05-24] MEDS: CLOPIDOGREL 75MG TABLET PO SCH (09:00)
[2018-05-24] MEDS: CARVEDILOL 6.25 MG TABLET PO SCH ×2 (09:00→21:44)
[2018-05-24 10:32] LABS: T4 FREE 1.16 ng/dL (0.76-1.46)
[2018-05-24 10:42] LABS: FOLIC ACID (FOLATE) SERUM 19.9 ng/mL (>5.38)
[2018-05-24] MEDS: HYDRALAZINE 20MG/ML VIAL IV SCH ×2 (12:27→18:00)
[2018-05-24] MEDS: LEVOFLOXACIN 250MG PREMIX 50 ML IV SCH (15:19)
[2018-05-24] MEDS ORDERED: VANCOMYCIN 1 G PREMIX 200 ML IV SCH (16:00)
[2018-05-24] MEDS ORDERED: ENOXAPARIN 40MG/0.4ML SYR SUBCUT SCH (16:15)
[2018-05-24] MEDS: DOXAZOSIN MESYLATE 4MG TABLET PO SCH (21:43)
[2018-05-24] MEDS: ENOXAPARIN 30MG/0.3ML SYR SUBCUT SCH (21:43)
[2018-05-24] MEDS: ATORVASTATIN CALCIUM 20MG TABLET PO SCH (21:43)
[2018-05-25] VITALS (7 sets, daily range): BP systolic 158–206; BP diastolic 56–79
[2018-05-25] MEDS: HYDRALAZINE 20MG/ML VIAL IV SCH ×2 (00:41→06:15)
[2018-05-25] MEDS: IPRATROPIUM/ALBUTEROL 0.5-3(2.5)MG/3ML NEB INH SCH ×4 (02:46→21:39)
[2018-05-25] MEDS: HYDRALAZINE HCL 100MG TABLET PO SCH (06:15)
[2018-05-25 09:01] LABS: BASOPHILS % 0.4 % (0.0-2.0); EOSINOPHILS % 1.2 % (0.0-5.0); HEMATOCRIT. 34.5 % (36.0-48.0); HEMOGLOBIN. 11.3 g/dL (12.0-16.0); LYMPHOCYTES % 10.2 % (20.0-50.0); MEAN CORPUSCULAR HEMOGLOBIN 27.1 pg (28.0-32.0); MEAN CORPUSCULAR VOLUME 82.7 fL (81.0-99.0); MEAN PLATELET VOLUME 7.5 fl (7.4-10.4); MONOCYTES % 4.2 % (2.0-8.0); PLATELET 147 x1000/uL (130-400); RED BLOOD CELL COUNT 4.17 mill/uL (4.2-5.4); RED CELL DISTRIBUTION WIDTH 15.2 % (11.6-14.6)
[2018-05-25] MEDS: CLOPIDOGREL 75MG TABLET PO SCH (09:08)
[2018-05-25] MEDS: CARVEDILOL 6.25 MG TABLET PO SCH (09:09)
[2018-05-25] MEDS: HYDRALAZINE 20MG/ML VIAL IV PRN ×2 (11:07→20:35)
[2018-05-25] MEDS ORDERED: CLONIDINE HCL 0.1MG/24HR PATCH TD NR (12:00)
[2018-05-25] MEDS: LEVOFLOXACIN 250MG PREMIX 50 ML IV SCH (13:42)
[2018-05-25] MEDS: CLONIDINE 0.2MG TABLET PO SCH ×2 (16:00→22:00)
[2018-05-25] MEDS ORDERED: VANCOMYCIN 500 MG PREMIX 100 ML IV SCH (16:00)
[2018-05-25] MEDS: VANCOMYCIN 750 MG PREMIX 150 ML IV SCH (16:41)
[2018-05-25] MEDS: NITROGLYCERIN OINT 1GM/INCH UDPKT TD SCH (16:41)
[2018-05-25] MEDS: DEXTROSE 5% WATER 1,000 ML IV SCH (20:35)
[2018-05-25] MEDS: ENOXAPARIN 30MG/0.3ML SYR SUBCUT SCH (20:36)
[2018-05-25] MEDS: DOXAZOSIN MESYLATE 4MG TABLET PO SCH (20:46)
[2018-05-25] MEDS: ATORVASTATIN CALCIUM 20MG TABLET PO SCH (20:46)
[2018-05-25] MEDS: CARVEDILOL 12.5MG TABLET PO SCH (20:46)
[2018-05-26] VITALS: BP 193/61
[2018-05-26] MEDS: NITROGLYCERIN OINT 1GM/INCH UDPKT TD SCH ×3 (00:09→16:52)
[2018-05-26] MEDS ORDERED: ENALAPRIL 2.5MG/2ML VIAL 2ML IV PRN (00:30)
[2018-05-26] MEDS: IPRATROPIUM/ALBUTEROL 0.5-3(2.5)MG/3ML NEB INH SCH ×3 (01:30→21:34)
[2018-05-26 04:00] VITALS: BP 179/81
[2018-05-26] MEDS: HYDRALAZINE 20MG/ML VIAL IV PRN ×2 (04:19→17:03)
[2018-05-26] MEDS: CLONIDINE 0.2MG TABLET PO SCH ×3 (05:34→22:00)
[2018-05-26 05:48] LABS: BASOPHILS % 0.2 % (0.0-2.0); EOSINOPHILS % 3.4 % (0.0-5.0); HEMATOCRIT. 32.7 % (36.0-48.0); HEMOGLOBIN. 10.8 g/dL (12.0-16.0); LYMPHOCYTES % 21.3 % (20.0-50.0); MEAN CORPUSCULAR HEMOGLOBIN 27.3 pg (28.0-32.0); MEAN CORPUSCULAR VOLUME 82.6 fL (81.0-99.0); MONOCYTES % 7.7 % (2.0-8.0); NEUTROPHILS % 67.4 % (40.0-76.0); PLATELET 151 x1000/uL (130-400); RED BLOOD CELL COUNT 3.96 mill/uL (4.2-5.4); RED CELL DISTRIBUTION WIDTH 15.4 % (11.6-14.6)
[2018-05-26] MEDS: VANCOMYCIN 750 MG PREMIX 150 ML IV SCH (07:44)
[2018-05-26 08:00] VITALS: BP 179/76
[2018-05-26] MEDS: CARVEDILOL 12.5MG TABLET PO SCH (09:00)
[2018-05-26] MEDS: CLOPIDOGREL 75MG TABLET PO SCH (09:00)
[2018-05-26 12:00] VITALS: BP 148/79
[2018-05-26] MEDS ORDERED: LABETALOL 5MG/ML SYR 20 MG/4 ML SYRINGE IV SCH (12:00)
[2018-05-26] MEDS ORDERED: SODIUM BICARBONATE 8.4% 1 MEQ/ML 50ML SYR IV SCH (13:45)
[2018-05-26 13:49] LABS: BG BASE EXCESS -6.1 mmol/L (-2.0-2.0); BG CARBOXYHEMOGLOBIN 0.3 % (0.5-1.5); BG DEOXYHEMOGLOBIN 3.7 % (0.0-5.0); BG HCO3 ACT 17.5 mmol/L (22.0-26.0); BG METHEMOGLOBIN 0.5 % (0.0-1.5); BG OXYGEN SATURATION 96.3 % (92.0-98.5); BG OXYHEMOGLOBIN 95.5 % (94.0-97.0); BG PCO2 28.6 mmHg (35.0-45.0); BG PH 7.405 (7.350-7.450); BG PO2 86.9 mmHg (75.0-100.0); BG SAMPLE SITE RIGHT RADIAL; BG TOTAL HEMOGLOBIN 10.8 g/dL (12.0-18.0); BG VENT MODE NASAL CANNULA
[2018-05-26] MEDS: LEVOFLOXACIN 250MG PREMIX 50 ML IV SCH (14:27)
[2018-05-26] MEDS: DEXTROSE 5% WATER 1,000 ML IV SCH (14:36)
[2018-05-26] MEDS: ENALAPRIL 2.5MG/2ML VIAL 2ML IV SCH ×2 (14:43→18:17)
[2018-05-26 16:00] VITALS: BP 185/90
[2018-05-26 20:00] VITALS: BP 181/79
[2018-05-26] MEDS: ENOXAPARIN 30MG/0.3ML SYR SUBCUT SCH (20:32)
[2018-05-26] MEDS: LABETALOL 5MG/ML SYR 20 MG/4 ML SYRINGE IV PRN (20:41)
[2018-05-26] MEDS: DOXAZOSIN MESYLATE 4MG TABLET PO SCH (20:50)
[2018-05-26] MEDS: ATORVASTATIN CALCIUM 20MG TABLET PO SCH (20:50)
[2018-05-27] VITALS (8 sets, daily range): BP systolic 148–198; BP diastolic 50–95
[2018-05-27] MEDS: NITROGLYCERIN OINT 1GM/INCH UDPKT TD SCH ×3 (00:07→18:14)
[2018-05-27] MEDS: ENALAPRIL 2.5MG/2ML VIAL 2ML IV SCH ×4 (00:07→18:13)
[2018-05-27] MEDS: HYDRALAZINE 20MG/ML VIAL IV PRN ×3 (01:33→19:05)
[2018-05-27] MEDS: IPRATROPIUM/ALBUTEROL 0.5-3(2.5)MG/3ML NEB INH SCH ×5 (01:59→20:46)
[2018-05-27] MEDS: DEXTROSE 5% WATER 1,000 ML IV SCH (04:36)
[2018-05-27] MEDS: CLONIDINE 0.2MG TABLET PO SCH ×3 (06:00→19:32)
[2018-05-27 06:12] LABS: BASOPHILS % 0.4 % (0.0-2.0); EOSINOPHILS % 4.5 % (0.0-5.0); HEMATOCRIT. 31.5 % (36.0-48.0); HEMOGLOBIN. 10.5 g/dL (12.0-16.0); LYMPHOCYTES % 18.2 % (20.0-50.0); MEAN CORPUSCULAR HEMOGLOBIN 27.1 pg (28.0-32.0); MEAN CORPUSCULAR VOLUME 81.2 fL (81.0-99.0); MEAN PLATELET VOLUME 7.5 fl (7.4-10.4); MONOCYTES % 7.1 % (2.0-8.0); NEUTROPHILS % 69.8 % (40.0-76.0); PLATELET 175 x1000/uL (130-400); RED BLOOD CELL COUNT 3.88 mill/uL (4.2-5.4); RED CELL DISTRIBUTION WIDTH 15.4 % (11.6-14.6)
[2018-05-27] MEDS: CLOPIDOGREL 75MG TABLET PO SCH (09:00)
[2018-05-27] MEDS: ATORVASTATIN CALCIUM 20MG TABLET PO SCH (19:31)
[2018-05-27] MEDS: DOXAZOSIN MESYLATE 4MG TABLET PO SCH (19:31)
[2018-05-27] MEDS: ENOXAPARIN 30MG/0.3ML SYR SUBCUT SCH (20:31)
[2018-05-27] MEDS: LABETALOL 5MG/ML SYR 20 MG/4 ML SYRINGE IV PRN (20:32)
[2018-05-28] VITALS: BP 168/82
[2018-05-28] MEDS: ENALAPRIL 2.5MG/2ML VIAL 2ML IV SCH ×3 (00:23→13:47)
[2018-05-28] MEDS: DEXTROSE 5% WATER 1,000 ML IV SCH ×2 (00:23→22:11)
[2018-05-28] MEDS: IPRATROPIUM/ALBUTEROL 0.5-3(2.5)MG/3ML NEB INH SCH ×4 (02:05→21:16)
[2018-05-28] MEDS: NITROGLYCERIN OINT 1GM/INCH UDPKT TD SCH ×4 (02:13→23:58)
[2018-05-28] MEDS: HYDRALAZINE 20MG/ML VIAL IV PRN (02:13)
[2018-05-28 04:00] VITALS: BP 182/96
[2018-05-28] MEDS: CLONIDINE 0.2MG TABLET PO SCH ×3 (04:27→21:19)
[2018-05-28 08:00] VITALS: BP 187/80
[2018-05-28] MEDS: CLOPIDOGREL 75MG TABLET PO SCH (09:00)
[2018-05-28 12:00] VITALS: BP 171/81
[2018-05-28 16:00] VITALS: BP 176/88
[2018-05-28] MEDS ORDERED: CLONIDINE HCL 0.3MG/24HR PATCH TD SCH (16:00)
[2018-05-28] MEDS: HYDRALAZINE 20MG/ML VIAL IV SCH ×2 (17:10→22:10)
[2018-05-28 20:00] VITALS: BP 173/80
[2018-05-28] MEDS: ATORVASTATIN CALCIUM 20MG TABLET PO SCH (20:36)
[2018-05-28] MEDS: DOXAZOSIN MESYLATE 4MG TABLET PO SCH (20:36)
[2018-05-29] VITALS: BP 144/60
[2018-05-29] MEDS: ENALAPRIL 2.5MG/2ML VIAL 2ML IV SCH ×4 (00:30→18:30)
[2018-05-29] MEDS: IPRATROPIUM/ALBUTEROL 0.5-3(2.5)MG/3ML NEB INH SCH ×4 (01:42→20:34)
[2018-05-29 04:00] VITALS: BP 150/78
[2018-05-29] MEDS: HYDRALAZINE 20MG/ML VIAL IV SCH ×2 (04:44→10:16)
[2018-05-29] MEDS: CLONIDINE 0.2MG TABLET PO SCH ×3 (05:56→21:04)
[2018-05-29] MEDS ORDERED: CEFAZOLIN 1000MG PREMIX 50 ML IV NR (06:00)
[2018-05-29 07:37] LABS: BASOPHILS % 0.2 % (0.0-2.0); EOSINOPHILS % 2.7 % (0.0-5.0); HEMATOCRIT. 31.8 % (36.0-48.0); HEMOGLOBIN. 10.7 g/dL (12.0-16.0); INR 1.1; LYMPHOCYTES % 18.7 % (20.0-50.0); MEAN CORPUSCULAR HEMOGLOBIN 27.4 pg (28.0-32.0); MEAN CORPUSCULAR VOLUME 81.2 fL (81.0-99.0); MEAN PLATELET VOLUME 7.2 fl (7.4-10.4); MONOCYTES % 8.4 % (2.0-8.0); PARTIAL THROMBOPLASTIN TIME 31.6 sec (23.4-31.0); PLATELET 168 x1000/uL (130-400); PROTHROMBIN TIME 10.8 sec (9.6-11.0); RED BLOOD CELL COUNT 3.91 mill/uL (4.2-5.4)
[2018-05-29 07:47] LABS: PHOSPHORUS 3.4 mg/dL (2.5-4.9)
[2018-05-29 08:00] VITALS: BP_SYST 172; BP_SYST 176; BP_DIAS 76; BP_DIAS 88
[2018-05-29] MEDS: CLOPIDOGREL 75MG TABLET PO SCH (09:00)
[2018-05-29] MEDS: NITROGLYCERIN OINT 1GM/INCH UDPKT TD SCH ×2 (10:23→16:30)
[2018-05-29 12:00] VITALS: BP 162/82
[2018-05-29] MEDS ORDERED: CEFAZOLIN SODIUM 1000MG/VIAL IM ONE (13:30)
[2018-05-29] MEDS ORDERED: BACTERIOSTATIC SODIUM CHLORIDE 0.9% 30ML VIAL IJ ONE (13:34)
[2018-05-29 16:00] VITALS: BP 152/72
[2018-05-29] MEDS ORDERED: MIDAZOLAM HCL 5 MG/5 ML VIAL ONE (16:14)
[2018-05-29] MEDS ORDERED: FENTANYL CITRATE/PF 50MCG/ML 2ML VIAL ONE (16:15)
[2018-05-29] MEDS ORDERED: MIDAZOLAM HCL 5 MG/5 ML VIAL IV PRN (16:19)
[2018-05-29] MEDS: DOXAZOSIN MESYLATE 4MG TABLET PO SCH (21:04)
[2018-05-29] MEDS: ATORVASTATIN CALCIUM 20MG TABLET PO SCH (21:05)
[2018-05-29] MEDS: DEXTROSE 5% WATER 1,000 ML IV SCH (21:38)
[2018-05-30] VITALS: BP 137/81
[2018-05-30] MEDS: ENALAPRIL 2.5MG/2ML VIAL 2ML IV SCH ×3 (00:14→12:30)
[2018-05-30] MEDS: HYDRALAZINE 20MG/ML VIAL IV SCH ×4 (00:20→11:00)
[2018-05-30] MEDS: NITROGLYCERIN OINT 1GM/INCH UDPKT TD SCH ×2 (00:20→09:04)
[2018-05-30 04:00] VITALS: BP 123/55
[2018-05-30] MEDS: CLONIDINE 0.2MG TABLET PO SCH ×2 (05:21→14:00)
[2018-05-30] MEDS: IPRATROPIUM/ALBUTEROL 0.5-3(2.5)MG/3ML NEB INH SCH ×2 (06:00)
[2018-05-30 08:00] VITALS: BP 108/48
[2018-05-30] MEDS: CLOPIDOGREL 75MG TABLET PO SCH (09:06)
[2018-05-30 12:00] VITALS: BP 111/51
[2018-05-30 13:12] LABS: BASOPHILS % 0.1 % (0.0-2.0); EOSINOPHILS % 0.4 % (0.0-5.0); HEMATOCRIT. 31.9 % (36.0-48.0); HEMOGLOBIN. 10.7 g/dL (12.0-16.0); LYMPHOCYTES % 10.9 % (20.0-50.0); MEAN CORPUSCULAR HEMOGLOBIN 27.5 pg (28.0-32.0); MEAN CORPUSCULAR VOLUME 82.1 fL (81.0-99.0); MONOCYTES % 5.1 % (2.0-8.0); NEUTROPHILS % 83.5 % (40.0-76.0); RED BLOOD CELL COUNT 3.89 mill/uL (4.2-5.4); RED CELL DISTRIBUTION WIDTH 15.4 % (11.6-14.6)
[2018-05-30 13:49] LABS: MEAN PLATELET VOLUME 7.9 fl (7.4-10.4); PLATELET 139 x1000/uL (130-400)
[2018-05-30 16:00] VITALS: BP 129/50
[2018-05-30 20:01] VITALS: BP 127/56
[2018-05-30] MEDS ORDERED: CARVEDILOL 3.125 MG TABLET PO SCH (21:00)
== END 2018-05-30 21:05 | DRG 871 ==
LOC: ER 13:21 → 7WST 16:08 → ENRESERV 20:42
PROVIDERS: ADMIT Internal Medicine Nephrology; ATTEND Internal Medicine Nephrology
PROC: 05H533Z Insertion of Infusion Device into Right Subclavian Vein, Percutaneous Approach (ICD-10-PCS; principal; 2018-05-23)
PROC: B546ZZA Ultrasonography of Right Subclavian Vein, Guidance (ICD-10-PCS; 2018-05-23)
PROC: 4A00X4Z Measurement of Central Nervous Electrical Activity, External Approach (ICD-10-PCS; 2018-05-23)
PROC: 0DH63UZ Insertion of Feeding Device into Stomach, Percutaneous Approach (ICD-10-PCS; 2018-05-29)
DX: A41.9 Sepsis, unspecified organism (principal); G92 Toxic encephalopathy; I13.0 Hypertensive heart and chronic kidney disease with heart failure and stage 1 through stage 4 chronic kidney disease, or unspecified chronic kidney disease; E87.2 Acidosis; I50.32 Chronic diastolic (congestive) heart failure; E46 Unspecified protein-calorie malnutrition; I69.354 Hemiplegia and hemiparesis following cerebral infarction affecting left non-dominant side; E11.22 Type 2 diabetes mellitus with diabetic chronic kidney disease; E78.5 Hyperlipidemia, unspecified; E86.0 Dehydration; N18.9 Chronic kidney disease, unspecified; E78.00 Pure hypercholesterolemia, unspecified; D64.9 Anemia, unspecified; F03.90 Unspecified dementia, unspecified severity, without behavioral disturbance, psychotic disturbance, mood disturbance, and anxiety; I25.10 Atherosclerotic heart disease of native coronary artery without angina pectoris; I34.0 Nonrheumatic mitral (valve) insufficiency; I45.81 Long QT syndrome; K44.9 Diaphragmatic hernia without obstruction or gangrene; R13.12 Dysphagia, oropharyngeal phase; Z95.0 Presence of cardiac pacemaker; Z79.82 Long term (current) use of aspirin; Z79.899 Other long term (current) drug therapy; Z68.20 Body mass index [BMI] 20.0-20.9, adult
CPT/HCPCS: 36415; 36569; 36573; 36600; 71045; 80048; 80061; 80202; 82140; 82375; 82550; 82607; 82746; 82805; 82962; 83036; 83605; 83735; 83880; 84100; 84145; 84439; 84443; 84481; 84484; 92610; 93005; 93880; 94640; 96365; 96367; 96375; 97162; 99285; C1725; C1893; J0360; J0690; J1650; J1956; J2250; J3010; J3370; J3490; J7030; J7050; J7070; J7620; A4315

== ENCOUNTER 2018-06-05 12:38 | Inpatient (IN) | payer MEDICARE, MEDICAID ==
[~2018-06-05] VITALS: Ht 160 cm; Wt 53.7 kg
[2018-06-05] VITALS (9 sets, daily range): BP systolic 141–204; BP diastolic 81–102
[2018-06-05] MEDS ORDERED: HYDRALAZINE 20MG/ML VIAL IV ONE ×2 (13:15→17:15)
[2018-06-05 14:10] LABS: BASOPHILS % 0.5 % (0.0-2.0); EOSINOPHILS % 1.1 % (0.0-5.0); HEMATOCRIT. 33.3 % (36.0-48.0); HEMOGLOBIN. 10.9 g/dL (12.0-16.0); MEAN CORPUSCULAR HEMOGLOBIN 26.8 pg (28.0-32.0); MEAN CORPUSCULAR VOLUME 82.1 fL (81.0-99.0); MEAN PLATELET VOLUME 7.6 fl (7.4-10.4); MONOCYTES % 5.6 % (2.0-8.0); NEUTROPHILS % 73.8 % (40.0-76.0); PLATELET 254 x1000/uL (130-400); RED BLOOD CELL COUNT 4.06 mill/uL (4.2-5.4); RED CELL DISTRIBUTION WIDTH 15.3 % (11.6-14.6)
[2018-06-05 14:15] LABS: CHLORIDE 111 mEq/L (98-107)
[2018-06-05 14:18] LABS: PARTIAL THROMBOPLASTIN TIME 26.4 sec (23.4-31.0); PROTHROMBIN TIME 10.3 sec (9.6-11.0)
[2018-06-05] MEDS ORDERED: FUROSEMIDE 20MG/2ML VIAL IVP ONE (15:00)
[2018-06-05] MEDS ORDERED: CLONIDINE 0.1MG TABLET PO NR (16:59)
[2018-06-05] MEDS ORDERED: PIPERACILLIN/TAZ 2.25G PREMIX 50 ML IV SCH (17:00)
[2018-06-05] MEDS ORDERED: DOCUSATE SODIUM 100MG CAPSULE PO PRN (17:00)
[2018-06-05] MEDS ORDERED: ACETAMINOPHEN 325MG TABLET PO PRN (17:00)
[2018-06-05] MEDS ORDERED: MAGNESIUM/ALUMINUM HYDROXIDE/SIMETHICONE 30ML UDC PO PRN (17:00)
[2018-06-05] MEDS ORDERED: HYDROCODONE/ACETAMINOPHEN 5/325MG TABLET PO PRN (17:00)
[2018-06-05] MEDS ORDERED: ENALAPRIL 2.5MG/2ML VIAL 2ML IV PRN (17:00)
[2018-06-05] MEDS ORDERED: IPRATROPIUM/ALBUTEROL 0.5-3(2.5)MG/3ML NEB INH PRN (17:00)
[2018-06-05] MEDS ORDERED: ONDANSETRON HCL 4MG/2ML INJ IV PRN (17:00)
[2018-06-05] MEDS ORDERED: CLONIDINE 0.1MG TABLET PO PRN (17:00)
[2018-06-05] MEDS ORDERED: DIPHENHYDRAMINE 50MG/ML VIAL IV PRN (17:00)
[2018-06-05] MEDS ORDERED: GUAIFENESIN 200MG/10ML SUGAR FREE UDC PO PRN (17:00)
[2018-06-05] MEDS ORDERED: NA PHOS,M-B/NA PHOS,DI-BA ENEMA 118ML PR PRN (17:00)
[2018-06-05] MEDS ORDERED: ACETAMINOPHEN 650MG SUPP PR PRN (17:00)
[2018-06-05] MEDS ORDERED: LORAZEPAM 0.5MG TABLET PO PRN (17:00)
[2018-06-05 17:08] LABS: BG CARBOXYHEMOGLOBIN 0.3 % (0.5-1.5); BG DEOXYHEMOGLOBIN 13.5 % (0.0-5.0); BG METHEMOGLOBIN 0.1 % (0.0-1.5); BG OXYGEN SATURATION 86.4 % (92.0-98.5); BG OXYHEMOGLOBIN 86.1 % (94.0-97.0); BG PCO2 28.2 mmHg (35.0-45.0); BG PH 7.446 (7.350-7.450); BG PO2 48.4 mmHg (75.0-100.0); BG SAMPLE SITE RIGHT BRACHIAL; BG TOTAL HEMOGLOBIN 11.4 g/dL (12.0-18.0); BG VENT MODE NASAL CANNULA
[2018-06-05] MEDS ORDERED: HYDRALAZINE 20MG/ML VIAL IV PRN ×2 (17:15→22:00)
[2018-06-05] MEDS ORDERED: LABETALOL 5MG/ML SYR 20 MG/4 ML SYRINGE IV ONE (18:15)
[2018-06-05] MEDS ORDERED: CLONIDINE 0.2MG TABLET GT SCH (20:45)
[2018-06-05] MEDS ORDERED: CLONIDINE 0.2MG TABLET GT PRN (20:45)
[2018-06-05] MEDS: PIPERACILLIN/TAZ 2.25G PREMIX 50 ML IV SCH (21:54)
[2018-06-05] MEDS ORDERED: ENALAPRIL 1.25MG/ML VIAL 1ML IV SCH (22:30)
[2018-06-05] MEDS: IPRATROPIUM/ALBUTEROL 0.5-3(2.5)MG/3ML NEB INH SCH (23:00)
[2018-06-05] MEDS: AMLODIPINE 5MG TABLET GT SCH (23:24)
[2018-06-05] MEDS: DEXT 5%/0.45% NACL 1000ML 1,000 ML IV SCH (23:25)
[2018-06-05] MEDS: ENOXAPARIN 30MG/0.3ML SYR SUBCUT SCH (23:25)
[2018-06-06] VITALS (23 sets, daily range): BP systolic 116–164; BP diastolic 49–130
[2018-06-06 01:46] LABS: CREATINE KINASE MB FRACTION 1.6 ng/mL (0.5-3.6)
[2018-06-06] MEDS: PIPERACILLIN/TAZ 2.25G PREMIX 50 ML IV SCH ×4 (05:15→21:20)
[2018-06-06 06:04] LABS: CLARITY URINE CLEAR (CLEAR); COLOR URINE YELLOW (YELLOW); KETONES URINE NEGATIVE (NEGATIVE); LEUKOCYTE ESTERASE URINE 2+ (NEGATIVE); NITRITE URINE NEGATIVE (NEGATIVE); OCCULT BLOOD URINE NEGATIVE (NEGATIVE); PROTEIN URINE 1+ (NEGATIVE); SPECIFIC GRAVITY URINE 1.014 (1.005-1.030); UROBILINOGEN URINE 0.2 E.U./dL (0.2-1.0)
[2018-06-06] MEDS: IPRATROPIUM/ALBUTEROL 0.5-3(2.5)MG/3ML NEB INH SCH ×2 (07:19→21:51)
[2018-06-06 07:22] LABS: *AMPHETAMINES SCREEN URINE NEGATIVE (NEGATIVE); *BARBITURATES SCREEN URINE NEGATIVE (NEGATIVE); *BENZODIAZEPINES SCREEN URINE NEGATIVE (NEGATIVE); *COCAINE SCREEN URINE NEGATIVE (NEGATIVE)
[2018-06-06 07:23] LABS: CANNABINOID URINE SCREEN NEGATIVE (NEGATIVE); METHADONE URINE SCREEN NEGATIVE (NEGATIVE); OPIATES URINE SCREEN NEGATIVE (NEGATIVE); PHENCYCLIDINE URINE SCREEN NEGATIVE (NEGATIVE)
[2018-06-06] MEDS: FUROSEMIDE 40MG/4ML VIAL IVP SCH (08:27)
[2018-06-06] MEDS: AMLODIPINE 5MG TABLET GT SCH (08:27)
[2018-06-06] MEDS: ASPIRIN 81MG EC TABLET PO SCH (08:27)
[2018-06-06 09:12] LABS: BASOPHILS % 0.5 % (0.0-2.0); EOSINOPHILS % 0.3 % (0.0-5.0); HEMATOCRIT. 33.8 % (36.0-48.0); HEMOGLOBIN. 10.9 g/dL (12.0-16.0); MEAN CORPUSCULAR HEMOGLOBIN 26.6 pg (28.0-32.0); MEAN CORPUSCULAR VOLUME 82.5 fL (81.0-99.0); MONOCYTES % 6.3 % (2.0-8.0); NEUTROPHILS % 79.9 % (40.0-76.0); RED CELL DISTRIBUTION WIDTH 15.4 % (11.6-14.6)
[2018-06-06 09:27] LABS: CREATINE KINASE MB FRACTION 1.6 ng/mL (0.5-3.6)
[2018-06-06 09:28] LABS: CHLORIDE 110 mEq/L (98-107)
[2018-06-06 09:37] LABS: CREATINE KINASE 71 IU/L (26-192); LDL CHOLESTEROL 76 mg/dL (5-100); T4 FREE 1.28 ng/dL (0.76-1.46)
[2018-06-06 09:38] LABS: HDL CHOLESTEROL 55 mg/dL (40-59)
[2018-06-06 09:59] LABS: PLATELET 247 x1000/uL (130-400)
[2018-06-06] MEDS: FLUCONAZOLE 200 MG/100ML BAG 200 MG in BAG 1 EACH IV SCH (17:49)
[2018-06-06] MEDS: METOPROLOL TARTRATE 25MG TABLET PO SCH (21:20)
[2018-06-06] MEDS: DEXT 5%/0.45% NACL 1000ML 1,000 ML IV SCH (21:21)
[2018-06-06] MEDS ORDERED: DEXTROSE 50% WATER 50ML SYRINGE IV PRN (22:45)
[2018-06-06] MEDS: ENOXAPARIN 30MG/0.3ML SYR SUBCUT SCH (23:33)
[2018-06-07] VITALS (12 sets, daily range): BP systolic 128–174; BP diastolic 72–94
[2018-06-07] MEDS: INSULIN LISPRO 100 UNITS/ML SUBCUT SCH ×5 (01:12→23:32)
[2018-06-07] MEDS: BLOOD SUGAR DIAGNOSTIC STRIP TEST SCH ×5 (01:12→23:32)
[2018-06-07] MEDS: IPRATROPIUM/ALBUTEROL 0.5-3(2.5)MG/3ML NEB INH SCH ×4 (03:15→20:49)
[2018-06-07] MEDS: PIPERACILLIN/TAZ 2.25G PREMIX 50 ML IV SCH ×4 (05:29→21:31)
[2018-06-07 06:47] LABS: HEMOGLOBIN 10.4 g/dL (12.0-16.0); MEAN CORPUSCULAR HEMOGLOBIN 26.9 pg (28.0-32.0); MEAN CORPUSCULAR VOLUME 82.5 fL (81.0-99.0); PLATELET 271 x1000/uL (130-400); RED BLOOD CELL COUNT 3.88 mill/uL (4.2-5.4); RED CELL DISTRIBUTION WIDTH 15.1 % (11.6-14.6)
[2018-06-07] MEDS ORDERED: VANCOMYCIN 1 G PREMIX 200 ML IV SCH (09:00)
[2018-06-07] MEDS: METOPROLOL TARTRATE 25MG TABLET PO SCH ×2 (09:34→21:32)
[2018-06-07] MEDS: ASPIRIN 81MG EC TABLET PO SCH (09:34)
[2018-06-07] MEDS: FUROSEMIDE 40MG/4ML VIAL IVP SCH (09:34)
[2018-06-07] MEDS: AMLODIPINE 5MG TABLET GT SCH (09:35)
[2018-06-07] MEDS: FAMOTIDINE 20MG TABLET GT SCH (09:35)
[2018-06-07] MEDS: CLONIDINE 0.2MG TABLET GT SCH ×2 (09:36→21:31)
[2018-06-07] MEDS: CARVEDILOL 6.25 MG TABLET GT SCH ×2 (09:36→21:31)
[2018-06-07 10:06] LABS: T4 FREE 1.22 ng/dL (0.76-1.46)
[2018-06-07 10:16] LABS: FOLIC ACID (FOLATE) SERUM 18.3 ng/mL (>5.38)
[2018-06-07] MEDS: FLUCONAZOLE 200 MG/100ML BAG 200 MG in BAG 1 EACH IV SCH (16:35)
[2018-06-07] MEDS: DEXT 5%/0.45% NACL 1000ML 1,000 ML IV SCH (16:36)
[2018-06-07] MEDS: ATORVASTATIN CALCIUM 20MG TABLET GT SCH (21:31)
[2018-06-07] MEDS: DOXAZOSIN MESYLATE 4MG TABLET GT SCH (21:32)
[2018-06-07] MEDS: ENOXAPARIN 30MG/0.3ML SYR SUBCUT SCH (23:32)
[2018-06-08] VITALS (12 sets, daily range): BP systolic 118–153; BP diastolic 49–84
[2018-06-08] MEDS: IPRATROPIUM/ALBUTEROL 0.5-3(2.5)MG/3ML NEB INH SCH ×4 (01:40→20:51)
[2018-06-08] MEDS: PIPERACILLIN/TAZ 2.25G PREMIX 50 ML IV SCH ×2 (03:57→10:23)
[2018-06-08] MEDS: BLOOD SUGAR DIAGNOSTIC STRIP TEST SCH ×4 (06:00→23:17)
[2018-06-08] MEDS: INSULIN LISPRO 100 UNITS/ML SUBCUT SCH ×4 (06:00→23:24)
[2018-06-08 07:15] LABS: BASOPHILS % 0.4 % (0.0-2.0); EOSINOPHILS % 1.4 % (0.0-5.0); HEMATOCRIT. 33.1 % (36.0-48.0); HEMOGLOBIN. 10.7 g/dL (12.0-16.0); LYMPHOCYTES % 16.2 % (20.0-50.0); MEAN CORPUSCULAR HEMOGLOBIN 26.5 pg (28.0-32.0); MEAN CORPUSCULAR VOLUME 82.3 fL (81.0-99.0); MEAN PLATELET VOLUME 7.6 fl (7.4-10.4); MONOCYTES % 5.5 % (2.0-8.0); NEUTROPHILS % 76.5 % (40.0-76.0); PLATELET 247 x1000/uL (130-400); RED BLOOD CELL COUNT 4.02 mill/uL (4.2-5.4); RED CELL DISTRIBUTION WIDTH 15.2 % (11.6-14.6)
[2018-06-08] MEDS: FUROSEMIDE 40MG/4ML VIAL IVP SCH (08:49)
[2018-06-08] MEDS: AMLODIPINE 5MG TABLET GT SCH (08:49)
[2018-06-08] MEDS: VANCOMYCIN 750 MG PREMIX 150 ML IV SCH (08:49)
[2018-06-08] MEDS: FAMOTIDINE 20MG TABLET GT SCH (08:50)
[2018-06-08] MEDS: ASPIRIN 81MG EC TABLET PO SCH (08:50)
[2018-06-08] MEDS: CLONIDINE 0.2MG TABLET GT SCH ×2 (08:50→20:21)
[2018-06-08] MEDS: CARVEDILOL 6.25 MG TABLET GT SCH ×2 (08:51→20:21)
[2018-06-08] MEDS: METOPROLOL TARTRATE 25MG TABLET PO SCH ×2 (08:51→20:20)
[2018-06-08] MEDS: DEXT 5%/0.45% NACL 1000ML 1,000 ML IV SCH (17:07)
[2018-06-08] MEDS: FLUCONAZOLE 200 MG/100ML BAG 100 ML IV SCH (17:07)
[2018-06-08] MEDS: DOXAZOSIN MESYLATE 4MG TABLET GT SCH (20:21)
[2018-06-08] MEDS: ATORVASTATIN CALCIUM 20MG TABLET GT SCH (20:21)
[2018-06-08] MEDS: ENOXAPARIN 30MG/0.3ML SYR SUBCUT SCH (23:17)
[2018-06-09] VITALS (10 sets, daily range): BP systolic 121–154; BP diastolic 64–81
[2018-06-09] MEDS: IPRATROPIUM/ALBUTEROL 0.5-3(2.5)MG/3ML NEB INH SCH ×3 (00:21→13:34)
[2018-06-09] MEDS: INSULIN LISPRO 100 UNITS/ML SUBCUT SCH ×2 (06:00→12:00)
[2018-06-09] MEDS: BLOOD SUGAR DIAGNOSTIC STRIP TEST SCH ×2 (06:37→12:08)
[2018-06-09 07:06] LABS: BASOPHILS % 0.3 % (0.0-2.0); EOSINOPHILS % 1.2 % (0.0-5.0); HEMATOCRIT. 30.7 % (36.0-48.0); HEMOGLOBIN. 10.2 g/dL (12.0-16.0); LYMPHOCYTES % 15.7 % (20.0-50.0); MEAN CORPUSCULAR HEMOGLOBIN 27.3 pg (28.0-32.0); MEAN PLATELET VOLUME 7.5 fl (7.4-10.4); MONOCYTES % 7.4 % (2.0-8.0); NEUTROPHILS % 75.4 % (40.0-76.0); PLATELET 237 x1000/uL (130-400); RED BLOOD CELL COUNT 3.75 mill/uL (4.2-5.4); RED CELL DISTRIBUTION WIDTH 15.2 % (11.6-14.6)
[2018-06-09] MEDS: ASPIRIN 81MG EC TABLET PO SCH (08:30)
[2018-06-09] MEDS: AMLODIPINE 5MG TABLET GT SCH (08:30)
[2018-06-09] MEDS: FAMOTIDINE 20MG TABLET GT SCH (08:30)
[2018-06-09] MEDS: CLONIDINE 0.2MG TABLET GT SCH (08:30)
[2018-06-09] MEDS: FUROSEMIDE 40MG/4ML VIAL IVP SCH (08:30)
[2018-06-09] MEDS: CARVEDILOL 6.25 MG TABLET GT SCH (08:31)
[2018-06-09] MEDS: METOPROLOL TARTRATE 25MG TABLET PO SCH (08:31)
[2018-06-09] MEDS: VANCOMYCIN 750 MG PREMIX 150 ML IV SCH (08:32)
[2018-06-09] MEDS: FLUCONAZOLE 200 MG/100ML BAG 100 ML IV SCH (16:21)
== END 2018-06-09 16:50 | DRG 871 ==
LOC: ER 12:38 → 3WST 16:19 → EDUNIT# 16:19 → EDBD 16:19 → EDBEDREQ 16:20 → EDBEDREQSVC 20:20 → ENRESERV 20:58 → 3WST 22:20
PROVIDERS: ADMIT Internal Medicine; ATTEND Internal Medicine Nephrology
DX: A41.9 Sepsis, unspecified organism (principal); G92 Toxic encephalopathy; I13.0 Hypertensive heart and chronic kidney disease with heart failure and stage 1 through stage 4 chronic kidney disease, or unspecified chronic kidney disease; B37.49 Other urogenital candidiasis; D68.59 Other primary thrombophilia; I50.32 Chronic diastolic (congestive) heart failure; I43 Cardiomyopathy in diseases classified elsewhere; I16.0 Hypertensive urgency; G40.909 Epilepsy, unspecified, not intractable, without status epilepticus; B95.7 Other staphylococcus as the cause of diseases classified elsewhere; B96.89 Other specified bacterial agents as the cause of diseases classified elsewhere; D64.9 Anemia, unspecified; E11.22 Type 2 diabetes mellitus with diabetic chronic kidney disease; E86.0 Dehydration; F03.90 Unspecified dementia, unspecified severity, without behavioral disturbance, psychotic disturbance, mood disturbance, and anxiety; N18.3 Chronic kidney disease, stage 3 (moderate); I25.10 Atherosclerotic heart disease of native coronary artery without angina pectoris; I27.20 Pulmonary hypertension, unspecified; R13.10 Dysphagia, unspecified; Z79.899 Other long term (current) drug therapy; Z93.1 Gastrostomy status; Z95.0 Presence of cardiac pacemaker; I69.391 Dysphagia following cerebral infarction
CPT/HCPCS: 36415; 36600; 71045; 80048; 80061; 80305; 82140; 82375; 82550; 82553; 82607; 82746; 82805; 82962; 83036; 83880; 84439; 84443; 84481; 84484; 85027; 87106; 93005; 93306; 93970; 94640; 96374; 96375; 99285; J0360; J1450; J1650; J1815; J1940; J2543; J3370; J3490; J7050; J7620; A4315

== ENCOUNTER 2018-10-01 20:11 | Inpatient (IN) | payer MEDICARE, MEDICAID ==
[~2018-10-01] VITALS: Ht 152.4 cm; Wt 54.4 kg
[2018-10-01] MEDS ORDERED: SODIUM CHLORIDE 0.9% 1000ML BAG (SEPSIS BOLUS) IV ONE (22:30)
[2018-10-01 23:12] LABS: BASOPHILS % 0.2 % (0.0-2.0); EOSINOPHILS % 0.8 % (0.0-5.0); LYMPHOCYTES % 14.8 % (20.0-50.0); MEAN CORPUSCULAR HEMOGLOBIN 27.6 pg (28.0-32.0); MEAN CORPUSCULAR VOLUME 82.1 fL (81.0-99.0); MEAN PLATELET VOLUME 6.3 fl (7.4-10.4); MONOCYTES % 6.8 % (2.0-8.0); NEUTROPHILS % 77.4 % (40.0-76.0); PLATELET 255 x1000/uL (130-400); RED BLOOD CELL COUNT 2.48 mill/uL (4.2-5.4); RED CELL DISTRIBUTION WIDTH 18.5 % (11.6-14.6)
[2018-10-01 23:13] LABS: HEMATOCRIT. 20.4 % (36.0-48.0); HEMOGLOBIN. 6.8 g/dL (12.0-16.0)
[2018-10-01 23:19] LABS: CHLORIDE 97 mEq/L (98-107); PROTHROMBIN TIME 10.7 sec (9.6-11.0)
[2018-10-02] MEDS ORDERED: PIPERACILLIN/TAZ 3.375G PREMIX 50 ML IV NR (00:30)
[2018-10-02] MEDS ORDERED: VANCOMYCIN 1 G PREMIX 200 ML IV ONE (00:30)
[2018-10-02] MEDS ORDERED: VANCOMYCIN 750 MG PREMIX 150 ML IV NR (00:45)
[2018-10-02 05:30] VITALS: BP 176/75
[2018-10-02] MEDS ORDERED: DOCUSATE SODIUM 100MG CAPSULE PO PRN (05:45)
[2018-10-02] MEDS ORDERED: HYDROMORPHONE HCL/PF 2MG/ML CPJ IV PRN (05:45)
[2018-10-02] MEDS ORDERED: PIPERACILLIN/TAZ 3.375G PREMIX 50 ML IV SCH (05:45)
[2018-10-02] MEDS ORDERED: ONDANSETRON HCL 4MG/2ML INJ IV PRN (06:00)
[2018-10-02] MEDS ORDERED: ACETAMINOPHEN 650MG/20.3ML UDC PO PRN (06:00)
[2018-10-02] MEDS ORDERED: DEXTROSE 50% WATER 50ML SYRINGE IV PRN (07:00)
[2018-10-02] MEDS: BLOOD SUGAR DIAGNOSTIC STRIP TEST SCH ×4 (07:05→21:35)
[2018-10-02] MEDS: INSULIN LISPRO 100 UNITS/ML SUBCUT SCH ×4 (07:05→21:00)
[2018-10-02 08:00] VITALS: BP 176/69
[2018-10-02] MEDS: CLONIDINE 0.1MG TABLET PO PRN ×2 (08:43→17:44)
[2018-10-02] MEDS: PIPERACILLIN/TAZOBACTAM 2.25 G in DEXTROSE 5% WATER 50 ML IV SCH ×3 (08:43→20:54)
[2018-10-02 08:55] VITALS: BP 170/70
[2018-10-02 09:30] LABS: CLARITY URINE CLEAR (CLEAR); COLOR URINE YELLOW (YELLOW); KETONES URINE NEGATIVE (NEGATIVE); LEUKOCYTE ESTERASE URINE TRACE (NEGATIVE); NITRITE URINE NEGATIVE (NEGATIVE); OCCULT BLOOD URINE 1+ (NEGATIVE); PH URINE 6.5 (4.5-8.0); PROTEIN URINE 2+ (NEGATIVE); SPECIFIC GRAVITY URINE 1.018 (1.005-1.030)
[2018-10-02 10:30] LABS: TOTAL IRON BINDING CAPACITY 276 ug/dL (250-450)
[2018-10-02 12:00] VITALS: BP 141/71
[2018-10-02] MEDS ORDERED: IPRATROPIUM/ALBUTEROL 0.5-3(2.5)MG/3ML NEB INH SCH (12:00)
[2018-10-02] MEDS ORDERED: IPRATROPIUM/ALBUTEROL 0.5-3(2.5)MG/3ML NEB HHN PRN (14:15)
[2018-10-02] MEDS: HYDRALAZINE HCL 100MG TABLET GT SCH ×2 (15:18→21:02)
[2018-10-02 16:00] VITALS: BP 172/72
[2018-10-02] MEDS ORDERED: SORBITOL 70% SOLN 30ML PO NR ×2 (16:30→20:30)
[2018-10-02] MEDS: CLONIDINE 0.2MG TABLET GT SCH ×2 (17:47→22:48)
[2018-10-02 18:55] LABS: BASOPHILS % 0.4 % (0.0-2.0); EOSINOPHILS % 0.2 % (0.0-5.0); HEMATOCRIT. 30.5 % (36.0-48.0); HEMOGLOBIN. 9.9 g/dL (12.0-16.0); LYMPHOCYTES % 14.9 % (20.0-50.0); MEAN CORPUSCULAR HEMOGLOBIN 27.3 pg (28.0-32.0); MEAN PLATELET VOLUME 6.8 fl (7.4-10.4); MONOCYTES % 6.7 % (2.0-8.0); NEUTROPHILS % 77.8 % (40.0-76.0); PLATELET 250 x1000/uL (130-400); RED BLOOD CELL COUNT 3.63 mill/uL (4.2-5.4); RED CELL DISTRIBUTION WIDTH 18.3 % (11.6-14.6)
[2018-10-02 20:00] VITALS: BP 153/73
[2018-10-02] MEDS: IPRATROPIUM/ALBUTEROL 0.5-3(2.5)MG/3ML NEB HHN SCH (20:28)
[2018-10-02 20:46] LABS: CHLORIDE 100 mEq/L (98-107)
[2018-10-02] MEDS ORDERED: FAMOTIDINE 20MG TABLET GT SCH (21:00)
[2018-10-02] MEDS: ATORVASTATIN CALCIUM 20MG TABLET GT SCH (21:00)
[2018-10-02] MEDS: DOXAZOSIN MESYLATE 4MG TABLET GT SCH (21:01)
[2018-10-02] MEDS: CARVEDILOL 6.25 MG TABLET GT SCH (21:01)
[2018-10-02] MEDS: PANTOPRAZOLE SODIUM 40 MG/VIAL IV SCH (21:26)
[2018-10-03] VITALS (8 sets, daily range): BP systolic 122–151; BP diastolic 57–81
[2018-10-03] MEDS: ACETYLCYSTEINE 100MG/ML 10% VIAL 4ML INH SCH ×3 (00:16→15:42)
[2018-10-03] MEDS: IPRATROPIUM/ALBUTEROL 0.5-3(2.5)MG/3ML NEB HHN SCH ×6 (00:16→20:20)
[2018-10-03] MEDS: PIPERACILLIN/TAZOBACTAM 2.25 G in DEXTROSE 5% WATER 50 ML IV SCH ×4 (01:34→22:09)
[2018-10-03] MEDS: INSULIN LISPRO 100 UNITS/ML SUBCUT SCH ×4 (06:23→21:00)
[2018-10-03] MEDS: BLOOD SUGAR DIAGNOSTIC STRIP TEST SCH ×4 (06:24→21:00)
[2018-10-03] MEDS: CLONIDINE 0.2MG TABLET GT SCH ×3 (06:30→22:11)
[2018-10-03] MEDS: HYDRALAZINE HCL 100MG TABLET GT SCH ×3 (06:30→22:21)
[2018-10-03 06:54] LABS: BASOPHILS % 0.5 % (0.0-2.0); EOSINOPHILS % 1.5 % (0.0-5.0); HEMATOCRIT. 22.4 % (36.0-48.0); HEMOGLOBIN. 7.5 g/dL (12.0-16.0); INR 1.1; LYMPHOCYTES % 19.1 % (20.0-50.0); MEAN CORPUSCULAR HEMOGLOBIN 28.6 pg (28.0-32.0); MEAN CORPUSCULAR VOLUME 85.8 fL (81.0-99.0); MEAN PLATELET VOLUME 6.4 fl (7.4-10.4); MONOCYTES % 8.5 % (2.0-8.0); NEUTROPHILS % 70.4 % (40.0-76.0); PARTIAL THROMBOPLASTIN TIME 33.1 sec (23.4-31.0); PLATELET 245 x1000/uL (130-400); PROTHROMBIN TIME 11.4 sec (9.6-11.0); RED BLOOD CELL COUNT 2.61 mill/uL (4.2-5.4); RED CELL DISTRIBUTION WIDTH 18.4 % (11.6-14.6)
[2018-10-03 07:23] LABS: CHLORIDE 105 mEq/L (98-107)
[2018-10-03 07:37] LABS: LDL CHOLESTEROL 79 mg/dL (5-100)
[2018-10-03 07:39] LABS: HDL CHOLESTEROL 52 mg/dL (40-59)
[2018-10-03] MEDS: CARVEDILOL 6.25 MG TABLET GT SCH ×2 (08:21→22:10)
[2018-10-03] MEDS: PANTOPRAZOLE SODIUM 40 MG/VIAL IV SCH ×2 (08:21→22:10)
[2018-10-03] MEDS ORDERED: MIDAZOLAM HCL 5 MG/5 ML VIAL ONE (16:33)
[2018-10-03] MEDS ORDERED: FENTANYL CITRATE/PF 50MCG/ML 2ML VIAL ONE (16:33)
[2018-10-03] MEDS ORDERED: SIMETHICONE 40 MG/0.6 ML 30ML ONE (16:33)
[2018-10-03] MEDS ORDERED: MIDAZOLAM HCL 5 MG/5 ML VIAL IV PRN (16:47)
[2018-10-03] MEDS ORDERED: EPINEPHRINE 0.1MG/ML (1:10,000) 10ML SYR ONE (16:54)
[2018-10-03 17:19] LABS: METHADONE URINE SCREEN NEGATIVE (NEGATIVE)
[2018-10-03 17:20] LABS: *AMPHETAMINES SCREEN URINE NEGATIVE (NEGATIVE); *BENZODIAZEPINES SCREEN URINE NEGATIVE (NEGATIVE); CANNABINOID URINE SCREEN NEGATIVE (NEGATIVE); PHENCYCLIDINE URINE SCREEN NEGATIVE (NEGATIVE)
[2018-10-03 17:22] LABS: *COCAINE SCREEN URINE NEGATIVE (NEGATIVE)
[2018-10-03 17:28] LABS: *BARBITURATES SCREEN URINE NEGATIVE (NEGATIVE); OPIATES URINE SCREEN NEGATIVE (NEGATIVE)
[2018-10-03] MEDS: DOXAZOSIN MESYLATE 4MG TABLET GT SCH (22:10)
[2018-10-03] MEDS: ATORVASTATIN CALCIUM 20MG TABLET GT SCH (22:11)
[2018-10-04] VITALS (10 sets, daily range): BP systolic 121–145; BP diastolic 54–69
[2018-10-04] MEDS: IPRATROPIUM/ALBUTEROL 0.5-3(2.5)MG/3ML NEB HHN SCH ×6 (00:41→20:05)
[2018-10-04] MEDS: ACETYLCYSTEINE 100MG/ML 10% VIAL 4ML INH SCH ×4 (00:41→15:23)
[2018-10-04] MEDS: PIPERACILLIN/TAZOBACTAM 2.25 G in DEXTROSE 5% WATER 50 ML IV SCH ×4 (03:08→20:42)
[2018-10-04] MEDS: HYDRALAZINE HCL 100MG TABLET GT SCH ×3 (05:14→21:12)
[2018-10-04] MEDS: CLONIDINE 0.2MG TABLET GT SCH ×3 (05:14→21:11)
[2018-10-04] MEDS: BLOOD SUGAR DIAGNOSTIC STRIP TEST SCH ×4 (07:10→21:00)
[2018-10-04] MEDS: INSULIN LISPRO 100 UNITS/ML SUBCUT SCH ×4 (07:40→21:00)
[2018-10-04 09:14] LABS: BASOPHILS % 0.4 % (0.0-2.0); EOSINOPHILS % 1.7 % (0.0-5.0); HEMATOCRIT. 22.3 % (36.0-48.0); HEMOGLOBIN. 7.5 g/dL (12.0-16.0); LYMPHOCYTES % 19.4 % (20.0-50.0); MEAN CORPUSCULAR HEMOGLOBIN 28.1 pg (28.0-32.0); MEAN CORPUSCULAR VOLUME 83.8 fL (81.0-99.0); MEAN PLATELET VOLUME 6.4 fl (7.4-10.4); MONOCYTES % 5.7 % (2.0-8.0); NEUTROPHILS % 72.8 % (40.0-76.0); PLATELET 240 x1000/uL (130-400); RED BLOOD CELL COUNT 2.66 mill/uL (4.2-5.4)
[2018-10-04 09:59] LABS: CHLORIDE 103 mEq/L (98-107)
[2018-10-04] MEDS: CARVEDILOL 6.25 MG TABLET GT SCH ×2 (10:18→21:11)
[2018-10-04] MEDS: CLONIDINE 0.1MG TABLET PO PRN (15:04)
[2018-10-04] MEDS: ATORVASTATIN CALCIUM 20MG TABLET GT SCH (21:11)
[2018-10-04] MEDS: DOXAZOSIN MESYLATE 4MG TABLET GT SCH (21:11)
[2018-10-04 21:36] LABS: HEMATOCRIT 28.7 % (36.0-48.0); HEMOGLOBIN 9.3 g/dL (12.0-16.0); MEAN CORPUSCULAR HEMOGLOBIN 27.7 pg (28.0-32.0); MEAN CORPUSCULAR VOLUME 85.5 fL (81.0-99.0); PLATELET 250 x1000/uL (130-400); RED BLOOD CELL COUNT 3.36 mill/uL (4.2-5.4); RED CELL DISTRIBUTION WIDTH 17.9 % (11.6-14.6)
[2018-10-04 21:52] LABS: D-DIMER 2.06 mg/L FEU (<0.50)
[2018-10-05] VITALS: BP 144/62
[2018-10-05] MEDS: IPRATROPIUM/ALBUTEROL 0.5-3(2.5)MG/3ML NEB HHN SCH ×5 (00:20→16:44)
[2018-10-05] MEDS: ACETYLCYSTEINE 100MG/ML 10% VIAL 4ML INH SCH ×3 (00:30→16:44)
[2018-10-05] MEDS: PIPERACILLIN/TAZOBACTAM 2.25 G in DEXTROSE 5% WATER 50 ML IV SCH ×2 (01:09→10:28)
[2018-10-05 04:00] VITALS: BP 167/77
[2018-10-05] MEDS: HYDRALAZINE HCL 100MG TABLET GT SCH (05:54)
[2018-10-05] MEDS: CLONIDINE 0.2MG TABLET GT SCH (05:54)
[2018-10-05] MEDS: BLOOD SUGAR DIAGNOSTIC STRIP TEST SCH (06:53)
[2018-10-05] MEDS: INSULIN LISPRO 100 UNITS/ML SUBCUT SCH (06:53)
[2018-10-05 07:13] LABS: CHLORIDE 104 mEq/L (98-107)
[2018-10-05 07:51] LABS: BASOPHILS % 0.7 % (0.0-2.0); HEMATOCRIT. 27.8 % (36.0-48.0); HEMOGLOBIN. 9.3 g/dL (12.0-16.0); MEAN CORPUSCULAR HEMOGLOBIN 28.1 pg (28.0-32.0); MEAN CORPUSCULAR VOLUME 84.1 fL (81.0-99.0); MEAN PLATELET VOLUME 6.3 fl (7.4-10.4); NEUTROPHILS % 79.3 % (40.0-76.0); PLATELET 228 x1000/uL (130-400); RED CELL DISTRIBUTION WIDTH 17.9 % (11.6-14.6)
[2018-10-05 08:00] VITALS: BP 149/68
[2018-10-05] MEDS: CARVEDILOL 6.25 MG TABLET GT SCH (10:28)
[2018-10-05 12:00] VITALS: BP 148/74
[2018-10-05 16:00] VITALS: BP 157/67
[2018-10-05 16:43] VITALS: BP 157/67
== END 2018-10-05 17:45 | DRG 871 ==
LOC: ER 20:11 → 8WST 10-02 00:45 → EDBD 10-02 00:45 → EDBEDREQ 10-02 00:47 → EDBEDREQTM 10-02 00:47 → EDBEDREQDT 10-02 00:47 → EDBEDREQSVC 10-02 00:47 → ENRESERV 10-02 01:22
PROVIDERS: ADMIT Internal Medicine Nephrology; ATTEND Internal Medicine Nephrology
PROC: 30233N1 Transfusion of Nonautologous Red Blood Cells into Peripheral Vein, Percutaneous Approach (ICD-10-PCS; principal; 2018-10-02)
PROC: 0DB68ZX Excision of Stomach, Via Natural or Artificial Opening Endoscopic, Diagnostic (ICD-10-PCS; 2018-10-02)
PROC: 3E0G8GC Introduction of Other Therapeutic Substance into Upper GI, Via Natural or Artificial Opening Endoscopic (ICD-10-PCS; 2018-10-02)
PROC: 0DJD8ZZ Inspection of Lower Intestinal Tract, Via Natural or Artificial Opening Endoscopic (ICD-10-PCS; 2018-10-03)
DX: A41.9 Sepsis, unspecified organism (principal); E43 Unspecified severe protein-calorie malnutrition; J69.0 Pneumonitis due to inhalation of food and vomit; J96.00 Acute respiratory failure, unspecified whether with hypoxia or hypercapnia; E87.1 Hypo-osmolality and hyponatremia; N39.0 Urinary tract infection, site not specified; G93.40 Encephalopathy, unspecified; I13.0 Hypertensive heart and chronic kidney disease with heart failure and stage 1 through stage 4 chronic kidney disease, or unspecified chronic kidney disease; T82.7XXA Infection and inflammatory reaction due to other cardiac and vascular devices, implants and grafts, initial encounter; D64.9 Anemia, unspecified; K26.9 Duodenal ulcer, unspecified as acute or chronic, without hemorrhage or perforation; K29.70 Gastritis, unspecified, without bleeding; K44.9 Diaphragmatic hernia without obstruction or gangrene; E11.22 Type 2 diabetes mellitus with diabetic chronic kidney disease; E78.00 Pure hypercholesterolemia, unspecified; E78.5 Hyperlipidemia, unspecified; E87.5 Hyperkalemia; K57.30 Diverticulosis of large intestine without perforation or abscess without bleeding; F03.90 Unspecified dementia, unspecified severity, without behavioral disturbance, psychotic disturbance, mood disturbance, and anxiety; I25.10 Atherosclerotic heart disease of native coronary artery without angina pectoris; K64.8 Other hemorrhoids; I50.9 Heart failure, unspecified; R47.02 Dysphasia; N18.9 Chronic kidney disease, unspecified; L89.159 Pressure ulcer of sacral region, unspecified stage; I27.20 Pulmonary hypertension, unspecified; I08.0 Rheumatic disorders of both mitral and aortic valves; Y71.8 Miscellaneous cardiovascular devices associated with adverse incidents, not elsewhere classified; Y92.89 Other specified places as the place of occurrence of the external cause; Z86.718 Personal history of other venous thrombosis and embolism; Z86.73 Personal history of transient ischemic attack (TIA), and cerebral infarction without residual deficits; Z93.1 Gastrostomy status; Z95.0 Presence of cardiac pacemaker; Z79.01 Long term (current) use of anticoagulants; Z79.02 Long term (current) use of antithrombotics/antiplatelets; Z79.899 Other long term (current) drug therapy; Z68.23 Body mass index [BMI] 23.0-23.9, adult; Z79.82 Long term (current) use of aspirin
CPT/HCPCS: 36415; 71045; 74018; 80048; 80061; 80305; 81003; 82270; 82962; 83540; 83550; 83605; 84145; 84484; 85027; 85049; 85379; 85384; 86850; 86900; 86920; 88305; 93005; 93306; 93970; 94640; 96374; 99285; C9113; J2250; J2543; J3010; J3370; J3490; J7030; J7060; J7608; J7620; P9016; P9021

== ENCOUNTER 2018-11-16 16:41 | Inpatient (IN) | payer MEDICARE, MEDICAID ==
[~2018-11-16] VITALS: Ht 157.5 cm; Wt 56.8 kg
[2018-11-16] MEDS ORDERED: PIPERACILLIN/TAZ 3.375G PREMIX 50 ML IV ONE (17:15)
[2018-11-16] MEDS ORDERED: VANCOMYCIN 1 G PREMIX 200 ML IV ONE (17:15)
[2018-11-16] MEDS ORDERED: SODIUM CHLORIDE 0.9% 1000ML BAG (SEPSIS BOLUS) IV ONE (17:15)
[2018-11-16 18:25] LABS: BASOPHILS % 0.4 % (0.0-2.0); EOSINOPHILS % 3.9 % (0.0-5.0); HEMATOCRIT. 31.6 % (36.0-48.0); HEMOGLOBIN. 10.2 g/dL (12.0-16.0); LYMPHOCYTES % 16.1 % (20.0-50.0); MEAN CORPUSCULAR HEMOGLOBIN 26.5 pg (28.0-32.0); MEAN CORPUSCULAR VOLUME 82.5 fL (81.0-99.0); MEAN PLATELET VOLUME 7.4 fl (7.4-10.4); MONOCYTES % 2.8 % (2.0-8.0); NEUTROPHILS % 76.8 % (40.0-76.0); PLATELET 206 x1000/uL (130-400); RED BLOOD CELL COUNT 3.83 mill/uL (4.2-5.4); RED CELL DISTRIBUTION WIDTH 17.4 % (11.6-14.6)
[2018-11-16 18:32] LABS: CHLORIDE 107 mEq/L (98-107)
[2018-11-16 18:35] LABS: INR 1.1; PARTIAL THROMBOPLASTIN TIME 24.7 sec (23.4-31.0); PROTHROMBIN TIME 10.9 sec (9.6-11.0)
[2018-11-16 19:03] LABS: CLARITY URINE CLOUDY (CLEAR); COLOR URINE YELLOW (YELLOW); KETONES URINE NEGATIVE (NEGATIVE); LEUKOCYTE ESTERASE URINE 3+ (NEGATIVE); NITRITE URINE POSITIVE (NEGATIVE); OCCULT BLOOD URINE NEGATIVE (NEGATIVE); PROTEIN URINE 1+ (NEGATIVE); SPECIFIC GRAVITY URINE 1.016 (1.005-1.030)
[2018-11-16 22:00] VITALS: BP 165/89
[2018-11-16] MEDS ORDERED: ONDANSETRON HCL 4MG/2ML INJ IV PRN (22:45)
[2018-11-16] MEDS ORDERED: ACETAMINOPHEN 650MG/20.3ML UDC GT PRN (22:45)
[2018-11-17 01:20] VITALS: BP 165/89
[2018-11-17] MEDS ORDERED: CEFTRIAXONE 1 G PREMIX 50 ML IV SCH (02:00)
[2018-11-17 04:00] VITALS: BP 154/74
[2018-11-17 06:26] LABS: BASOPHILS % 0.4 % (0.0-2.0); EOSINOPHILS % 5.1 % (0.0-5.0); HEMATOCRIT. 24.7 % (36.0-48.0); LYMPHOCYTES % 21.6 % (20.0-50.0); MEAN CORPUSCULAR HEMOGLOBIN 26.5 pg (28.0-32.0); MEAN CORPUSCULAR VOLUME 82.1 fL (81.0-99.0); MEAN PLATELET VOLUME 7.4 fl (7.4-10.4); MONOCYTES % 6.8 % (2.0-8.0); NEUTROPHILS % 66.1 % (40.0-76.0); PLATELET 203 x1000/uL (130-400); RED BLOOD CELL COUNT 3.01 mill/uL (4.2-5.4); RED CELL DISTRIBUTION WIDTH 17.2 % (11.6-14.6)
[2018-11-17 06:28] LABS: CHLORIDE 111 mEq/L (98-107)
[2018-11-17 08:00] VITALS: BP 175/86
[2018-11-17] MEDS: ASPIRIN 81MG EC TABLET PO SCH (08:57)
[2018-11-17] MEDS: CLOPIDOGREL 75MG TABLET PO SCH (09:00)
[2018-11-17] MEDS ORDERED: ENOXAPARIN 40MG/0.4ML SYR SUBCUT SCH (09:00)
[2018-11-17] MEDS: DOCUSATE SODIUM 100MG CAPSULE PO SCH ×2 (09:02→17:57)
[2018-11-17] MEDS: ATORVASTATIN CALCIUM 20MG TABLET PO SCH (09:03)
[2018-11-17] MEDS: CARVEDILOL 6.25 MG TABLET PO SCH ×2 (09:03→22:43)
[2018-11-17] MEDS: FAMOTIDINE 20MG TABLET PO SCH (09:03)
[2018-11-17] MEDS: CLONIDINE 0.2MG TABLET PO SCH ×2 (09:04→17:54)
[2018-11-17] MEDS: IPRATROPIUM/ALBUTEROL 0.5-3(2.5)MG/3ML NEB NEB SCH ×3 (09:38→21:56)
[2018-11-17 12:00] VITALS: BP 172/80
[2018-11-17] MEDS ORDERED: DEXTROSE 50% WATER 50ML SYRINGE IV PRN (12:00)
[2018-11-17] MEDS: CLONIDINE 0.1MG TABLET PO PRN (12:04)
[2018-11-17] MEDS: BLOOD SUGAR DIAGNOSTIC STRIP TEST SCH ×2 (12:13→17:00)
[2018-11-17] MEDS: INSULIN LISPRO 100 UNITS/ML SUBCUT SCH ×2 (12:14→17:00)
[2018-11-17] MEDS: HYDRALAZINE HCL 100MG TABLET PO SCH ×2 (13:00→23:27)
[2018-11-17] MEDS: ENOXAPARIN 30MG/0.3ML SYR SUBCUT SCH (14:00)
[2018-11-17 15:58] VITALS: BP 169/81
[2018-11-17 16:44] LABS: HEMOGLOBIN 7.8 g/dL (12.0-16.0)
[2018-11-17] MEDS: SODIUM CHLORIDE 0.9% 1,000 ML IV SCH (17:58)
[2018-11-17 20:00] VITALS: BP 161/81
[2018-11-17] MEDS ORDERED: DOXAZOSIN MESYLATE 4MG TABLET PO SCH (21:00)
[2018-11-18] VITALS: BP 172/85
[2018-11-18] MEDS: SODIUM CHLORIDE 0.9% 1,000 ML IV SCH ×4 (00:58→20:55)
[2018-11-18] MEDS: CEFTRIAXONE 1 G PREMIX 50 ML IV SCH (00:59)
[2018-11-18] MEDS: CLONIDINE 0.1MG TABLET PO PRN (02:23)
[2018-11-18] MEDS: IPRATROPIUM/ALBUTEROL 0.5-3(2.5)MG/3ML NEB NEB SCH ×4 (03:49→21:13)
[2018-11-18 04:00] VITALS: BP 170/85
[2018-11-18] MEDS: HYDRALAZINE HCL 100MG TABLET PO SCH ×3 (06:35→20:54)
[2018-11-18 08:00] VITALS: BP 178/88
[2018-11-18] MEDS: ATORVASTATIN CALCIUM 20MG TABLET PO SCH (08:03)
[2018-11-18] MEDS: CLONIDINE 0.2MG TABLET PO SCH ×2 (08:04→17:16)
[2018-11-18] MEDS: FAMOTIDINE 20MG TABLET PO SCH (08:05)
[2018-11-18] MEDS: DOCUSATE SODIUM 100MG CAPSULE PO SCH ×2 (08:05→17:15)
[2018-11-18] MEDS: CARVEDILOL 6.25 MG TABLET PO SCH ×2 (08:05→20:54)
[2018-11-18] MEDS: INSULIN LISPRO 100 UNITS/ML SUBCUT SCH ×3 (08:19→17:00)
[2018-11-18] MEDS: BLOOD SUGAR DIAGNOSTIC STRIP TEST SCH ×3 (08:19→17:25)
[2018-11-18] MEDS: CLOPIDOGREL 75MG TABLET PO SCH (09:00)
[2018-11-18] MEDS: ASPIRIN 81MG EC TABLET PO SCH (09:00)
[2018-11-18 12:00] VITALS: BP 184/84
[2018-11-18] MEDS: ENOXAPARIN 30MG/0.3ML SYR SUBCUT SCH (13:44)
[2018-11-18 15:42] LABS: BASOPHILS % 0.4 % (0.0-2.0); HEMATOCRIT. 24.8 % (36.0-48.0); HEMOGLOBIN. 7.9 g/dL (12.0-16.0); LYMPHOCYTES % 13.7 % (20.0-50.0); MEAN CORPUSCULAR HEMOGLOBIN 26.8 pg (28.0-32.0); MEAN CORPUSCULAR VOLUME 84.2 fL (81.0-99.0); MEAN PLATELET VOLUME 7.3 fl (7.4-10.4); MONOCYTES % 6.3 % (2.0-8.0); NEUTROPHILS % 76.6 % (40.0-76.0); PLATELET 177 x1000/uL (130-400); RED BLOOD CELL COUNT 2.94 mill/uL (4.2-5.4); RED CELL DISTRIBUTION WIDTH 17.8 % (11.6-14.6)
[2018-11-18 15:45] LABS: CHLORIDE 117 mEq/L (98-107)
[2018-11-18 16:00] VITALS: BP 172/79
[2018-11-18] MEDS: DOXAZOSIN MESYLATE 2MG TABLET PO SCH (17:16)
[2018-11-18 20:00] VITALS: BP 182/90
[2018-11-19] VITALS: BP 178/87
[2018-11-19] MEDS: CEFTRIAXONE 1 G PREMIX 50 ML IV SCH (00:41)
[2018-11-19] MEDS: IPRATROPIUM/ALBUTEROL 0.5-3(2.5)MG/3ML NEB NEB SCH ×4 (02:07→22:22)
[2018-11-19 04:00] VITALS: BP 188/89
[2018-11-19] MEDS: SODIUM CHLORIDE 0.9% 1,000 ML IV SCH ×3 (06:37→23:42)
[2018-11-19] MEDS: HYDRALAZINE HCL 100MG TABLET PO SCH ×3 (06:37→22:15)
[2018-11-19 08:00] VITALS: BP 180/100
[2018-11-19] MEDS: INSULIN LISPRO 100 UNITS/ML SUBCUT SCH ×3 (09:00→16:59)
[2018-11-19 09:12] LABS: BASOPHILS % 0.2 % (0.0-2.0); EOSINOPHILS % 2.6 % (0.0-5.0); HEMATOCRIT. 24.6 % (36.0-48.0); HEMOGLOBIN. 7.9 g/dL (12.0-16.0); LYMPHOCYTES % 13.2 % (20.0-50.0); MEAN CORPUSCULAR HEMOGLOBIN 26.8 pg (28.0-32.0); MEAN CORPUSCULAR VOLUME 83.2 fL (81.0-99.0); MEAN PLATELET VOLUME 7.4 fl (7.4-10.4); MONOCYTES % 5.6 % (2.0-8.0); NEUTROPHILS % 78.4 % (40.0-76.0); PLATELET 203 x1000/uL (130-400); RED BLOOD CELL COUNT 2.96 mill/uL (4.2-5.4); RED CELL DISTRIBUTION WIDTH 17.6 % (11.6-14.6)
[2018-11-19 09:42] LABS: CHLORIDE 117 mEq/L (98-107)
[2018-11-19] MEDS: BLOOD SUGAR DIAGNOSTIC STRIP TEST SCH ×3 (09:50→16:58)
[2018-11-19] MEDS: DOCUSATE SODIUM 100MG CAPSULE PO SCH ×2 (09:53→16:29)
[2018-11-19] MEDS: FAMOTIDINE 20MG TABLET PO SCH (09:53)
[2018-11-19] MEDS: ATORVASTATIN CALCIUM 20MG TABLET PO SCH (09:53)
[2018-11-19] MEDS: CLOPIDOGREL 75MG TABLET PO SCH (09:53)
[2018-11-19] MEDS: CARVEDILOL 6.25 MG TABLET PO SCH ×2 (09:54→22:15)
[2018-11-19] MEDS: DOXAZOSIN MESYLATE 2MG TABLET PO SCH ×2 (09:54→16:45)
[2018-11-19] MEDS: CLONIDINE 0.1MG TABLET PO PRN (09:54)
[2018-11-19] MEDS: ASPIRIN 81MG EC TABLET PO SCH (09:54)
[2018-11-19 12:00] VITALS: BP 163/72
[2018-11-19] MEDS: CLONIDINE 0.2MG TABLET PO SCH ×2 (12:51→16:44)
[2018-11-19] MEDS: ENOXAPARIN 30MG/0.3ML SYR SUBCUT SCH (12:52)
[2018-11-19 16:00] VITALS: BP 160/79
[2018-11-19] MEDS: MEROPENEM 500MG in NORMAL SALINE 50ML IV SCH (16:29)
[2018-11-19] MEDS: ASCORBIC ACID 500 MG TABLET PO SCH (16:30)
[2018-11-19] MEDS: ZINC SULFATE 220 MG ( 50 ) CAPSULE PO SCH (16:30)
[2018-11-19 20:00] VITALS: BP 173/79
[2018-11-20] VITALS (7 sets, daily range): BP systolic 158–183; BP diastolic 48–102
[2018-11-20] MEDS: CLONIDINE 0.1MG TABLET PO PRN ×2 (01:25→09:33)
[2018-11-20] MEDS: IPRATROPIUM/ALBUTEROL 0.5-3(2.5)MG/3ML NEB NEB SCH ×4 (01:39→20:13)
[2018-11-20] MEDS: MEROPENEM 500MG in NORMAL SALINE 50ML IV SCH (05:45)
[2018-11-20] MEDS: HYDRALAZINE HCL 100MG TABLET PO SCH ×3 (05:45→23:03)
[2018-11-20 06:58] LABS: BASOPHILS % 0.3 % (0.0-2.0); EOSINOPHILS % 2.7 % (0.0-5.0); HEMATOCRIT. 23.5 % (36.0-48.0); HEMOGLOBIN. 7.6 g/dL (12.0-16.0); LYMPHOCYTES % 15.2 % (20.0-50.0); MEAN PLATELET VOLUME 7.7 fl (7.4-10.4); MONOCYTES % 5.4 % (2.0-8.0); NEUTROPHILS % 76.4 % (40.0-76.0); PLATELET 177 x1000/uL (130-400); RED CELL DISTRIBUTION WIDTH 17.3 % (11.6-14.6)
[2018-11-20 07:17] LABS: CHLORIDE 119 mEq/L (98-107)
[2018-11-20 07:37] LABS: TOTAL IRON BINDING CAPACITY 234 ug/dL (250-450)
[2018-11-20] MEDS: ASPIRIN 81MG EC TABLET PO SCH (09:00)
[2018-11-20] MEDS: INSULIN LISPRO 100 UNITS/ML SUBCUT SCH ×4 (09:00→21:00)
[2018-11-20] MEDS: CLOPIDOGREL 75MG TABLET PO SCH (09:00)
[2018-11-20] MEDS: CARVEDILOL 6.25 MG TABLET PO SCH ×2 (09:34→23:03)
[2018-11-20] MEDS: FAMOTIDINE 20MG TABLET PO SCH (09:34)
[2018-11-20] MEDS: CLONIDINE 0.2MG TABLET PO SCH ×3 (09:34→18:03)
[2018-11-20] MEDS: ATORVASTATIN CALCIUM 20MG TABLET PO SCH (09:34)
[2018-11-20] MEDS: DOCUSATE SODIUM 100MG CAPSULE PO SCH ×2 (09:34→19:05)
[2018-11-20] MEDS: ZINC SULFATE 220 MG ( 50 ) CAPSULE PO SCH (09:34)
[2018-11-20] MEDS: ASCORBIC ACID 500 MG TABLET PO SCH (09:34)
[2018-11-20] MEDS: DOXAZOSIN MESYLATE 2MG TABLET PO SCH ×2 (09:35→18:02)
[2018-11-20] MEDS: BLOOD SUGAR DIAGNOSTIC STRIP TEST SCH ×4 (09:35→21:36)
[2018-11-20] MEDS: ENOXAPARIN 30MG/0.3ML SYR SUBCUT SCH (13:20)
[2018-11-20] MEDS: FERROUS SULFATE 300MG/5ML UDC PO SCH ×2 (13:44→19:05)
[2018-11-20] MEDS: SODIUM CHLORIDE 0.9% 1,000 ML IV SCH ×2 (14:12→19:06)
[2018-11-20] MEDS ORDERED: DIATR MEGLU/DIATRIZOATE SOLN 30ML PO ONE (14:30)
[2018-11-20] MEDS ORDERED: DIATR MEGLU/DIATRIZOATE SOLN 30ML PO NR (15:00)
[2018-11-20] MEDS ORDERED: DEXTROSE 50% WATER 50ML SYRINGE IV PRN (15:15)
[2018-11-20] MEDS: MEROPENEM 1,000 MG in SODIUM CHLORIDE 0.9% 100 ML IV SCH (18:02)
[2018-11-21] VITALS (12 sets, daily range): BP systolic 143–191; BP diastolic 71–98
[2018-11-21] MEDS: MEROPENEM 1,000 MG in SODIUM CHLORIDE 0.9% 100 ML IV SCH ×4 (00:26→23:35)
[2018-11-21] MEDS: IPRATROPIUM/ALBUTEROL 0.5-3(2.5)MG/3ML NEB NEB SCH ×5 (01:10→21:01)
[2018-11-21] MEDS: HYDRALAZINE HCL 100MG TABLET PO SCH ×3 (05:05→23:23)
[2018-11-21] MEDS: SODIUM CHLORIDE 0.9% 1,000 ML IV SCH ×2 (05:05→17:10)
[2018-11-21] MEDS: INSULIN LISPRO 100 UNITS/ML SUBCUT SCH ×4 (06:46→21:00)
[2018-11-21] MEDS: BLOOD SUGAR DIAGNOSTIC STRIP TEST SCH ×4 (06:46→21:00)
[2018-11-21 08:20] LABS: CHLORIDE 120 mEq/L (98-107)
[2018-11-21 08:24] LABS: PHOSPHORUS 2.6 mg/dL (2.5-4.9)
[2018-11-21] MEDS: DOXAZOSIN MESYLATE 2MG TABLET PO SCH (09:07)
[2018-11-21] MEDS: FAMOTIDINE 20MG TABLET PO SCH (09:08)
[2018-11-21] MEDS: CARVEDILOL 6.25 MG TABLET PO SCH (09:08)
[2018-11-21] MEDS: ASCORBIC ACID 500 MG TABLET PO SCH (09:09)
[2018-11-21] MEDS: ATORVASTATIN CALCIUM 20MG TABLET PO SCH (09:09)
[2018-11-21] MEDS: DOCUSATE SODIUM 100MG CAPSULE PO SCH (09:09)
[2018-11-21] MEDS: ZINC SULFATE 220 MG ( 50 ) CAPSULE PO SCH (09:09)
[2018-11-21] MEDS: FERROUS SULFATE 300MG/5ML UDC PO SCH ×3 (09:09→19:02)
[2018-11-21] MEDS: CLONIDINE 0.2MG TABLET PO SCH (09:09)
[2018-11-21] MEDS: CLOPIDOGREL 75MG TABLET PO SCH (11:20)
[2018-11-21] MEDS: DOCUSATE SODIUM SUGAR FREE 100MG/10ML UDC NG SCH ×2 (11:20→19:02)
[2018-11-21] MEDS: ASPIRIN 81MG TABLET PO SCH (11:20)
[2018-11-21] MEDS: ENOXAPARIN 30MG/0.3ML SYR SUBCUT SCH (13:07)
[2018-11-21] MEDS: CLONIDINE 0.3MG TABLET PO SCH ×2 (13:07→19:59)
[2018-11-21] MEDS ORDERED: DOCUSATE SODIUM SUGAR FREE 100MG/10ML UDC NG SCH (17:00)
[2018-11-21 17:13] LABS: BASOPHILS % 0.5 % (0.0-2.0); EOSINOPHILS % 2.4 % (0.0-5.0); HEMATOCRIT. 27.7 % (36.0-48.0); HEMOGLOBIN. 8.9 g/dL (12.0-16.0); LYMPHOCYTES % 18.5 % (20.0-50.0); MEAN CORPUSCULAR VOLUME 83.7 fL (81.0-99.0); MEAN PLATELET VOLUME 7.6 fl (7.4-10.4); MONOCYTES % 5.7 % (2.0-8.0); NEUTROPHILS % 72.9 % (40.0-76.0); PLATELET 182 x1000/uL (130-400); RED BLOOD CELL COUNT 3.31 mill/uL (4.2-5.4); RED CELL DISTRIBUTION WIDTH 17.1 % (11.6-14.6)
[2018-11-21] MEDS: DOXAZOSIN MESYLATE 4MG TABLET PO SCH (23:22)
[2018-11-21] MEDS: CARVEDILOL 12.5MG TABLET PO SCH (23:23)
[2018-11-22] VITALS: BP 176/88
[2018-11-22] MEDS: SODIUM CHLORIDE 0.9% 1,000 ML IV SCH ×2 (01:33→10:32)
[2018-11-22] MEDS: IPRATROPIUM/ALBUTEROL 0.5-3(2.5)MG/3ML NEB NEB SCH ×3 (01:52→14:54)
[2018-11-22 04:00] VITALS: BP 177/92
[2018-11-22] MEDS: HYDRALAZINE HCL 100MG TABLET PO SCH ×2 (06:32→15:46)
[2018-11-22 07:08] LABS: BASOPHILS % 0.3 % (0.0-2.0); EOSINOPHILS % 3.3 % (0.0-5.0); HEMATOCRIT. 26.6 % (36.0-48.0); HEMOGLOBIN. 8.7 g/dL (12.0-16.0); LYMPHOCYTES % 18.1 % (20.0-50.0); MEAN CORPUSCULAR HEMOGLOBIN 27.2 pg (28.0-32.0); MEAN CORPUSCULAR VOLUME 82.9 fL (81.0-99.0); MEAN PLATELET VOLUME 7.6 fl (7.4-10.4); MONOCYTES % 5.1 % (2.0-8.0); NEUTROPHILS % 73.2 % (40.0-76.0); PLATELET 180 x1000/uL (130-400); RED CELL DISTRIBUTION WIDTH 17.7 % (11.6-14.6)
[2018-11-22 07:17] LABS: CHLORIDE 119 mEq/L (98-107)
[2018-11-22] MEDS: BLOOD SUGAR DIAGNOSTIC STRIP TEST SCH ×2 (07:25→12:10)
[2018-11-22] MEDS: INSULIN LISPRO 100 UNITS/ML SUBCUT SCH ×2 (07:40→12:40)
[2018-11-22] MEDS: FAMOTIDINE 20MG TABLET PO SCH (08:34)
[2018-11-22] MEDS: DOCUSATE SODIUM SUGAR FREE 100MG/10ML UDC NG SCH ×2 (08:34→15:56)
[2018-11-22] MEDS: CLONIDINE 0.3MG TABLET PO SCH ×2 (08:34→15:56)
[2018-11-22] MEDS: ZINC SULFATE 220 MG ( 50 ) CAPSULE PO SCH (08:34)
[2018-11-22] MEDS: CLOPIDOGREL 75MG TABLET PO SCH (08:34)
[2018-11-22] MEDS: ASCORBIC ACID 500 MG TABLET PO SCH (08:34)
[2018-11-22] MEDS: DOXAZOSIN MESYLATE 4MG TABLET PO SCH (08:34)
[2018-11-22] MEDS: CARVEDILOL 12.5MG TABLET PO SCH (08:34)
[2018-11-22] MEDS: FERROUS SULFATE 300MG/5ML UDC PO SCH ×2 (08:34→15:46)
[2018-11-22] MEDS: ATORVASTATIN CALCIUM 20MG TABLET PO SCH (08:35)
[2018-11-22] MEDS: ASPIRIN 81MG TABLET PO SCH (08:35)
[2018-11-22] MEDS: MEROPENEM 1,000 MG in SODIUM CHLORIDE 0.9% 100 ML IV SCH ×2 (10:32→15:56)
[2018-11-22] MEDS ORDERED: MINOXIDIL 2.5MG TABLET PO SCH (11:00)
[2018-11-22 12:00] VITALS: BP 179/88
[2018-11-22] MEDS: ENOXAPARIN 30MG/0.3ML SYR SUBCUT SCH (15:45)
[2018-11-22 16:00] VITALS: BP 181/97
[2018-11-22 16:51] VITALS: BP 181/97
[2018-11-22] MEDS ORDERED: CARVEDILOL 12.5MG TABLET PO SCH (21:00)
== END 2018-11-22 18:09 | DRG 698 ==
LOC: ER 16:41 → 8WST 19:36 → ENRESERV 21:00
PROVIDERS: ADMIT Internal Medicine Nephrology; ATTEND Internal Medicine Nephrology
PROC: 30233N1 Transfusion of Nonautologous Red Blood Cells into Peripheral Vein, Percutaneous Approach (ICD-10-PCS; principal; 2018-11-21)
PROC: 02HV33Z Insertion of Infusion Device into Superior Vena Cava, Percutaneous Approach (ICD-10-PCS; 2018-11-21)
PROC: B5181ZA Fluoroscopy of Superior Vena Cava using Low Osmolar Contrast, Guidance (ICD-10-PCS; 2018-11-21)
PROC: B548ZZA Ultrasonography of Superior Vena Cava, Guidance (ICD-10-PCS; 2018-11-21)
DX: T83.518A Infection and inflammatory reaction due to other urinary catheter, initial encounter (principal); A41.51 Sepsis due to Escherichia coli [E. coli]; E43 Unspecified severe protein-calorie malnutrition; N39.0 Urinary tract infection, site not specified; N17.9 Acute kidney failure, unspecified; G93.40 Encephalopathy, unspecified; I13.0 Hypertensive heart and chronic kidney disease with heart failure and stage 1 through stage 4 chronic kidney disease, or unspecified chronic kidney disease; I48.92 Unspecified atrial flutter; D64.9 Anemia, unspecified; F03.90 Unspecified dementia, unspecified severity, without behavioral disturbance, psychotic disturbance, mood disturbance, and anxiety; I25.10 Atherosclerotic heart disease of native coronary artery without angina pectoris; I50.9 Heart failure, unspecified; E78.00 Pure hypercholesterolemia, unspecified; R13.10 Dysphagia, unspecified; E11.22 Type 2 diabetes mellitus with diabetic chronic kidney disease; E61.1 Iron deficiency; E78.5 Hyperlipidemia, unspecified; Y84.6 Urinary catheterization as the cause of abnormal reaction of the patient, or of later complication, without mention of misadventure at the time of the procedure; Z16.12 Extended spectrum beta lactamase (ESBL) resistance; E86.0 Dehydration; K57.30 Diverticulosis of large intestine without perforation or abscess without bleeding; L89.159 Pressure ulcer of sacral region, unspecified stage; N18.9 Chronic kidney disease, unspecified; Z79.02 Long term (current) use of antithrombotics/antiplatelets; Z79.899 Other long term (current) drug therapy; Z95.0 Presence of cardiac pacemaker; Z86.73 Personal history of transient ischemic attack (TIA), and cerebral infarction without residual deficits; Z86.718 Personal history of other venous thrombosis and embolism; Z87.01 Personal history of pneumonia (recurrent); Z87.11 Personal history of peptic ulcer disease; Z93.1 Gastrostomy status; Z79.82 Long term (current) use of aspirin; Y92.89 Other specified places as the place of occurrence of the external cause; Z68.22 Body mass index [BMI] 22.0-22.9, adult
CPT/HCPCS: 36415; 36573; 71045; 74176; 80048; 81003; 82270; 82728; 82962; 83540; 83550; 83605; 83735; 83880; 84100; 84145; 84484; 85014; 85018; 86850; 86900; 86920; 87077; 87186; 93005; 93306; 93970; 94640; 96365; 99285; C1725; C1893; J0696; J1650; J2185; J2543; J3370; J7030; J7040; J7050; J7620; P9016; Q9963

== ENCOUNTER 2018-11-24 13:18 | Inpatient (IN) | payer MEDICARE, MEDICAID ==
[2018-11-24] VITALS (9 sets, daily range): BP systolic 152–172; BP diastolic 60–82
[~2018-11-24] VITALS: Ht 165.1 cm; Wt 62.8 kg
[2018-11-24] MEDS ORDERED: SODIUM CHLORIDE 0.9% 1000ML BAG (SEPSIS BOLUS) IV ONE (14:00)
[2018-11-24] MEDS ORDERED: PIPERACILLIN/TAZ 3.375G PREMIX 50 ML IV ONE (14:00)
[2018-11-24] MEDS ORDERED: VANCOMYCIN 1 G PREMIX 200 ML IV ONE (14:00)
[2018-11-24] MEDS ORDERED: HYDRALAZINE 20MG/ML VIAL IV ONE (14:00)
[2018-11-24 14:15] LABS: BG BASE EXCESS -7.1 mmol/L (-2.0-2.0); BG CARBOXYHEMOGLOBIN 0.3 % (0.5-1.5); BG DEOXYHEMOGLOBIN 7.2 % (0.0-5.0); BG FRACTION INSPIRED OXYGEN 28; BG HCO3 ACT 16.9 mmol/L (22.0-26.0); BG METHEMOGLOBIN 0.2 % (0.0-1.5); BG OXYGEN SATURATION 92.8 % (92.0-98.5); BG OXYHEMOGLOBIN 92.3 % (94.0-97.0); BG PH 7.383 (7.350-7.450); BG SAMPLE SITE RIGHT BRACHIAL; BG TOTAL HEMOGLOBIN 10.3 g/dL (12.0-18.0); BG VENT MODE NASAL CANNULA
[2018-11-24 14:44] LABS: BASOPHILS % 0.4 % (0.0-2.0); EOSINOPHILS % 0.1 % (0.0-5.0); HEMATOCRIT. 29.5 % (36.0-48.0); HEMOGLOBIN. 9.7 g/dL (12.0-16.0); LYMPHOCYTES % 10.5 % (20.0-50.0); MEAN CORPUSCULAR HEMOGLOBIN 27.8 pg (28.0-32.0); MEAN CORPUSCULAR VOLUME 84.7 fL (81.0-99.0); MEAN PLATELET VOLUME 7.5 fl (7.4-10.4); MONOCYTES % 4.5 % (2.0-8.0); NEUTROPHILS % 84.5 % (40.0-76.0); PLATELET 229 x1000/uL (130-400); RED BLOOD CELL COUNT 3.48 mill/uL (4.2-5.4); RED CELL DISTRIBUTION WIDTH 18.2 % (11.6-14.6)
[2018-11-24 14:49] LABS: INR 1.2; PROTHROMBIN TIME 11.8 sec (9.6-11.0)
[2018-11-24 14:57] LABS: CHLORIDE 116 mEq/L (98-107)
[2018-11-24 15:05] LABS: CREATINE KINASE 69 IU/L (26-192)
[2018-11-24 15:56] LABS: CLARITY URINE CLEAR (CLEAR); COLOR URINE YELLOW (YELLOW); KETONES URINE NEGATIVE (NEGATIVE); LEUKOCYTE ESTERASE URINE 1+ (NEGATIVE); NITRITE URINE NEGATIVE (NEGATIVE); OCCULT BLOOD URINE NEGATIVE (NEGATIVE); PROTEIN URINE 3+ (NEGATIVE); SPECIFIC GRAVITY URINE 1.021 (1.005-1.030); UROBILINOGEN URINE 0.2 E.U./dL (0.2-1.0)
[2018-11-24] MEDS ORDERED: DEXT 5%/0.9% NACL 1,000 ML IV SCH (20:30)
[2018-11-24 21:26] LABS: BASOPHILS % 0.2 % (0.0-2.0); EOSINOPHILS % 0.3 % (0.0-5.0); HEMATOCRIT. 25.2 % (36.0-48.0); HEMOGLOBIN. 7.8 g/dL (12.0-16.0); LYMPHOCYTES % 14.9 % (20.0-50.0); MEAN CORPUSCULAR HEMOGLOBIN 27.6 pg (28.0-32.0); MEAN CORPUSCULAR VOLUME 88.9 fL (81.0-99.0); MEAN PLATELET VOLUME 7.3 fl (7.4-10.4); MONOCYTES % 5.3 % (2.0-8.0); NEUTROPHILS % 79.3 % (40.0-76.0); PLATELET 208 x1000/uL (130-400); RED BLOOD CELL COUNT 2.83 mill/uL (4.2-5.4); RED CELL DISTRIBUTION WIDTH 18.4 % (11.6-14.6)
[2018-11-24] MEDS ORDERED: ACETAMINOPHEN 650MG/20.3ML UDC GT PRN (22:30)
[2018-11-24] MEDS ORDERED: DEXTROSE 50% WATER 50ML SYRINGE IV PRN (22:30)
[2018-11-24] MEDS: DEXT 5%/0.45% NACL 1000ML 1,000 ML IV SCH (22:50)
[2018-11-24] MEDS: INSULIN LISPRO 100 UNITS/ML SUBCUT SCH (23:41)
[2018-11-24] MEDS: BLOOD SUGAR DIAGNOSTIC STRIP TEST SCH (23:41)
[2018-11-24] MEDS: MEROPENEM 1,000 MG in SODIUM CHLORIDE 0.9% 100 ML IV SCH (23:42)
[2018-11-24] MEDS ORDERED: MERO1PIG IV (23:56)
[2018-11-24] MEDS ORDERED: DOXA4TAB2 PO (23:56)
[2018-11-25] VITALS (62 sets, daily range): BP systolic 131–189; BP diastolic 50–84
[2018-11-25 00:16] LABS: HEMATOCRIT 25.9 % (36.0-48.0)
[2018-11-25] MEDS: CLONIDINE 0.1MG TABLET GT PRN (02:44)
[2018-11-25] MEDS: DEXT 5%/0.45% NACL 1000ML 1,000 ML IV SCH ×2 (04:00→08:00)
[2018-11-25] MEDS: BLOOD SUGAR DIAGNOSTIC STRIP TEST SCH ×3 (05:48→18:14)
[2018-11-25] MEDS: INSULIN LISPRO 100 UNITS/ML SUBCUT SCH ×3 (05:48→18:00)
[2018-11-25] MEDS: CLONIDINE 0.2MG TABLET PO SCH ×3 (05:52→21:33)
[2018-11-25] MEDS: HYDRALAZINE HCL 100MG TABLET PO SCH ×3 (05:52→21:33)
[2018-11-25] MEDS: MEROPENEM 1,000 MG in SODIUM CHLORIDE 0.9% 100 ML IV SCH (06:03)
[2018-11-25 06:17] LABS: CHLORIDE 121 mEq/L (98-107)
[2018-11-25] MEDS: DOXAZOSIN MESYLATE 4MG TABLET PO SCH ×2 (07:44→20:40)
[2018-11-25] MEDS: LISINOPRIL 20MG TABLET PO SCH (07:44)
[2018-11-25] MEDS: CARVEDILOL 12.5MG TABLET PO SCH ×2 (07:45→20:40)
[2018-11-25] MEDS: CITRIC ACID/SODIUM CITRATE SOLN 30ML UDC PO SCH ×3 (09:16→18:21)
[2018-11-25 10:12] LABS: BASOPHILS % 0.2 % (0.0-2.0); EOSINOPHILS % 0.8 % (0.0-5.0); LYMPHOCYTES % 14.6 % (20.0-50.0); MEAN CORPUSCULAR HEMOGLOBIN 27.1 pg (28.0-32.0); MEAN CORPUSCULAR VOLUME 85.1 fL (81.0-99.0); MEAN PLATELET VOLUME 7.4 fl (7.4-10.4); MONOCYTES % 6.5 % (2.0-8.0); NEUTROPHILS % 77.9 % (40.0-76.0); PLATELET 189 x1000/uL (130-400); RED BLOOD CELL COUNT 2.47 mill/uL (4.2-5.4); RED CELL DISTRIBUTION WIDTH 17.7 % (11.6-14.6)
[2018-11-25 10:24] LABS: HEMOGLOBIN. 6.7 g/dL (12.0-16.0)
[2018-11-25] MEDS ORDERED: SILVER NITRATE APPLICATOR STICK TOP NR (10:30)
[2018-11-25] MEDS ORDERED: IPRATROPIUM/ALBUTEROL 0.5-3(2.5)MG/3ML NEB HHN PRN (13:30)
[2018-11-25] MEDS: ACETYLCYSTEINE 100MG/ML 10% VIAL 4ML INH SCH (16:18)
[2018-11-25] MEDS: IPRATROPIUM/ALBUTEROL 0.5-3(2.5)MG/3ML NEB HHN SCH ×2 (16:18→20:37)
[2018-11-25 17:03] LABS: HEMATOCRIT 23.1 % (36.0-48.0); HEMOGLOBIN 7.4 g/dL (12.0-16.0); MEAN CORPUSCULAR HEMOGLOBIN 27.7 pg (28.0-32.0); MEAN CORPUSCULAR VOLUME 86.3 fL (81.0-99.0); PLATELET 156 x1000/uL (130-400); RED BLOOD CELL COUNT 2.68 mill/uL (4.2-5.4); RED CELL DISTRIBUTION WIDTH 18.3 % (11.6-14.6)
[2018-11-25] MEDS: MEROPENEM 1000MG in NORMAL SALINE 100ML IV SCH (18:21)
[2018-11-25] MEDS: ATORVASTATIN CALCIUM 20MG TABLET PO SCH (20:40)
[2018-11-26] VITALS (15 sets, daily range): BP systolic 153–183; BP diastolic 67–82
[2018-11-26] MEDS: BLOOD SUGAR DIAGNOSTIC STRIP TEST SCH ×5 (00:13→23:28)
[2018-11-26] MEDS: IPRATROPIUM/ALBUTEROL 0.5-3(2.5)MG/3ML NEB HHN SCH ×5 (00:46→21:11)
[2018-11-26] MEDS: ACETYLCYSTEINE 100MG/ML 10% VIAL 4ML INH SCH ×3 (00:47→16:58)
[2018-11-26] MEDS: MEROPENEM 1000MG in NORMAL SALINE 100ML IV SCH ×3 (02:43→18:33)
[2018-11-26] MEDS: DEXT 5%/0.45% NACL 1000ML 1,000 ML IV SCH ×2 (04:21→13:18)
[2018-11-26] MEDS: INSULIN LISPRO 100 UNITS/ML SUBCUT SCH ×5 (05:32→23:28)
[2018-11-26] MEDS: HYDRALAZINE HCL 100MG TABLET PO SCH ×3 (05:32→22:59)
[2018-11-26] MEDS: CLONIDINE 0.2MG TABLET PO SCH (05:32)
[2018-11-26 05:48] LABS: BASOPHILS % 0.1 % (0.0-2.0); EOSINOPHILS % 3.2 % (0.0-5.0); HEMATOCRIT. 33.3 % (36.0-48.0); LYMPHOCYTES % 19.9 % (20.0-50.0); MEAN CORPUSCULAR HEMOGLOBIN 28.8 pg (28.0-32.0); MEAN CORPUSCULAR VOLUME 90.2 fL (81.0-99.0); MEAN PLATELET VOLUME 7.5 fl (7.4-10.4); MONOCYTES % 6.3 % (2.0-8.0); NEUTROPHILS % 70.5 % (40.0-76.0); PLATELET 158 x1000/uL (130-400); RED BLOOD CELL COUNT 3.69 mill/uL (4.2-5.4); RED CELL DISTRIBUTION WIDTH 17.2 % (11.6-14.6)
[2018-11-26 06:10] LABS: HEMOGLOBIN. 10.6 g/dL (12.0-16.0)
[2018-11-26 06:57] LABS: CHLORIDE 119 mEq/L (98-107)
[2018-11-26 07:02] LABS: PHOSPHORUS 2.9 mg/dL (2.5-4.9)
[2018-11-26] MEDS: CITRIC ACID/SODIUM CITRATE SOLN 30ML UDC PO SCH ×3 (08:13→16:25)
[2018-11-26] MEDS: CARVEDILOL 12.5MG TABLET PO SCH ×2 (08:14→20:40)
[2018-11-26] MEDS: LISINOPRIL 20MG TABLET PO SCH (08:14)
[2018-11-26] MEDS: DOXAZOSIN MESYLATE 4MG TABLET PO SCH ×2 (08:14→20:40)
[2018-11-26] MEDS: CLONIDINE 0.1MG TABLET GT PRN ×4 (10:38→23:00)
[2018-11-26] MEDS: CLONIDINE 0.3MG TABLET PO SCH ×2 (13:14→23:04)
[2018-11-26 20:04] LABS: HEMATOCRIT 27.1 % (36.0-48.0); HEMOGLOBIN 8.8 g/dL (12.0-16.0); MEAN CORPUSCULAR HEMOGLOBIN 27.9 pg (28.0-32.0); MEAN CORPUSCULAR VOLUME 86.4 fL (81.0-99.0); PLATELET 153 x1000/uL (130-400); RED BLOOD CELL COUNT 3.13 mill/uL (4.2-5.4); RED CELL DISTRIBUTION WIDTH 17.6 % (11.6-14.6)
[2018-11-26] MEDS: ATORVASTATIN CALCIUM 20MG TABLET PO SCH (20:40)
[2018-11-27] VITALS (10 sets, daily range): BP systolic 154–188; BP diastolic 63–86
[2018-11-27] MEDS: ACETYLCYSTEINE 100MG/ML 10% VIAL 4ML INH SCH ×3 (00:22→17:18)
[2018-11-27] MEDS: IPRATROPIUM/ALBUTEROL 0.5-3(2.5)MG/3ML NEB HHN SCH ×6 (00:23→19:58)
[2018-11-27] MEDS: DEXT 5%/0.45% NACL 1000ML 1,000 ML IV SCH ×3 (00:54→20:57)
[2018-11-27] MEDS: MEROPENEM 1000MG in NORMAL SALINE 100ML IV SCH ×3 (01:01→17:44)
[2018-11-27] MEDS: CLONIDINE 0.1MG TABLET GT PRN (04:38)
[2018-11-27] MEDS: CLONIDINE 0.3MG TABLET PO SCH ×4 (05:13→17:44)
[2018-11-27] MEDS: HYDRALAZINE HCL 100MG TABLET PO SCH ×3 (05:14→22:26)
[2018-11-27] MEDS: BLOOD SUGAR DIAGNOSTIC STRIP TEST SCH ×3 (05:14→17:19)
[2018-11-27] MEDS: INSULIN LISPRO 100 UNITS/ML SUBCUT SCH ×3 (05:14→17:43)
[2018-11-27 06:23] LABS: BASOPHILS % 0.1 % (0.0-2.0); EOSINOPHILS % 2.9 % (0.0-5.0); HEMATOCRIT. 23.9 % (36.0-48.0); HEMOGLOBIN. 7.8 g/dL (12.0-16.0); LYMPHOCYTES % 13.4 % (20.0-50.0); MEAN CORPUSCULAR HEMOGLOBIN 28.8 pg (28.0-32.0); MEAN CORPUSCULAR VOLUME 88.5 fL (81.0-99.0); MEAN PLATELET VOLUME 7.6 fl (7.4-10.4); NEUTROPHILS % 75.6 % (40.0-76.0); PLATELET 132 x1000/uL (130-400); RED CELL DISTRIBUTION WIDTH 17.5 % (11.6-14.6)
[2018-11-27 06:30] LABS: CHLORIDE 117 mEq/L (98-107)
[2018-11-27] MEDS: CITRIC ACID/SODIUM CITRATE SOLN 30ML UDC PO SCH ×3 (08:50→16:47)
[2018-11-27] MEDS: DOXAZOSIN MESYLATE 4MG TABLET PO SCH ×2 (08:50→20:59)
[2018-11-27] MEDS: LISINOPRIL 20MG TABLET PO SCH (08:50)
[2018-11-27] MEDS: CARVEDILOL 12.5MG TABLET PO SCH ×2 (08:51→20:58)
[2018-11-27 17:01] LABS: HEMATOCRIT 25.1 % (36.0-48.0); HEMOGLOBIN 8.2 g/dL (12.0-16.0); MEAN CORPUSCULAR HEMOGLOBIN 29.1 pg (28.0-32.0); MEAN CORPUSCULAR VOLUME 89.2 fL (81.0-99.0); PLATELET 137 x1000/uL (130-400); RED BLOOD CELL COUNT 2.81 mill/uL (4.2-5.4); RED CELL DISTRIBUTION WIDTH 17.8 % (11.6-14.6)
[2018-11-27] MEDS: ATORVASTATIN CALCIUM 20MG TABLET PO SCH (20:58)
[2018-11-27] MEDS ORDERED: FUROSEMIDE 40MG/4ML VIAL IVP NR (23:45)
[2018-11-27] MEDS ORDERED: POTASSIUM CHLORIDE 20MEQ TABLET SR PO NR (23:55)
[2018-11-28] VITALS (8 sets, daily range): BP systolic 127–166; BP diastolic 58–87
[2018-11-28] MEDS: BLOOD SUGAR DIAGNOSTIC STRIP TEST SCH ×4 (00:04→17:31)
[2018-11-28] MEDS: CLONIDINE 0.3MG TABLET PO SCH ×4 (00:23→18:07)
[2018-11-28] MEDS: ACETYLCYSTEINE 100MG/ML 10% VIAL 4ML INH SCH ×3 (00:43→16:42)
[2018-11-28] MEDS: IPRATROPIUM/ALBUTEROL 0.5-3(2.5)MG/3ML NEB HHN SCH ×6 (00:43→21:00)
[2018-11-28] MEDS: MEROPENEM 1000MG in NORMAL SALINE 100ML IV SCH ×3 (03:12→17:27)
[2018-11-28] MEDS: INSULIN LISPRO 100 UNITS/ML SUBCUT SCH ×4 (06:00→17:31)
[2018-11-28] MEDS: HYDRALAZINE HCL 100MG TABLET PO SCH ×3 (06:55→18:07)
[2018-11-28] MEDS: CITRIC ACID/SODIUM CITRATE SOLN 30ML UDC PO SCH ×3 (10:32→18:05)
[2018-11-28] MEDS: DOXAZOSIN MESYLATE 4MG TABLET PO SCH ×2 (10:33→21:01)
[2018-11-28] MEDS: NIFEDIPINE XL 60MG TAB PO SCH (10:35)
[2018-11-28] MEDS: LISINOPRIL 20MG TABLET PO SCH (10:36)
[2018-11-28 10:38] LABS: CHLORIDE 115 mEq/L (98-107)
[2018-11-28 10:41] LABS: BASOPHILS % 0.1 % (0.0-2.0); EOSINOPHILS % 4.7 % (0.0-5.0); MEAN CORPUSCULAR HEMOGLOBIN 28.3 pg (28.0-32.0); MEAN CORPUSCULAR VOLUME 87.3 fL (81.0-99.0); MEAN PLATELET VOLUME 7.7 fl (7.4-10.4); MONOCYTES % 7.6 % (2.0-8.0); NEUTROPHILS % 70.6 % (40.0-76.0); PLATELET 144 x1000/uL (130-400); RED BLOOD CELL COUNT 3.25 mill/uL (4.2-5.4); RED CELL DISTRIBUTION WIDTH 17.9 % (11.6-14.6)
[2018-11-28 10:42] LABS: HEMATOCRIT. 28.3 % (36.0-48.0); HEMOGLOBIN. 9.2 g/dL (12.0-16.0)
[2018-11-28 10:44] LABS: PHOSPHORUS 2.4 mg/dL (2.5-4.9)
[2018-11-28] MEDS: CARVEDILOL 12.5MG TABLET PO SCH ×2 (10:50→21:00)
[2018-11-28] MEDS ORDERED: SODIUM POLYSTYRENE SULFONATE 15 G/60 ML BOT PO NR (12:30)
[2018-11-28] MEDS: ATORVASTATIN CALCIUM 20MG TABLET PO SCH (21:00)
[2018-11-29] VITALS (11 sets, daily range): BP systolic 109–180; BP diastolic 42–74
[2018-11-29] MEDS: IPRATROPIUM/ALBUTEROL 0.5-3(2.5)MG/3ML NEB HHN SCH ×5 (00:38→16:38)
[2018-11-29] MEDS: ACETYLCYSTEINE 100MG/ML 10% VIAL 4ML INH SCH ×3 (00:38→16:38)
[2018-11-29] MEDS: HYDRALAZINE HCL 100MG TABLET PO SCH ×4 (01:22→17:43)
[2018-11-29] MEDS: CLONIDINE 0.3MG TABLET PO SCH ×4 (01:22→17:43)
[2018-11-29] MEDS: MEROPENEM 1000MG in NORMAL SALINE 100ML IV SCH ×3 (01:32→17:42)
[2018-11-29] MEDS: INSULIN LISPRO 100 UNITS/ML SUBCUT SCH ×4 (06:00→17:53)
[2018-11-29] MEDS: BLOOD SUGAR DIAGNOSTIC STRIP TEST SCH ×4 (06:40→17:43)
[2018-11-29 06:51] LABS: CHLORIDE 118 mEq/L (98-107)
[2018-11-29] MEDS ORDERED: SODIUM POLYSTYRENE SULFONATE 15 G/60 ML BOT PO NR (09:30)
[2018-11-29] MEDS: CITRIC ACID/SODIUM CITRATE SOLN 30ML UDC PO SCH ×3 (09:42→17:42)
[2018-11-29] MEDS: DOXAZOSIN MESYLATE 4MG TABLET PO SCH (09:43)
[2018-11-29] MEDS: NIFEDIPINE XL 60MG TAB PO SCH (09:43)
[2018-11-29] MEDS: LISINOPRIL 20MG TABLET PO SCH (09:43)
[2018-11-29] MEDS: CARVEDILOL 12.5MG TABLET PO SCH (10:09)
[2018-12-03] MEDS ORDERED: AMOXICILLIN 500 MG CAPSULE GT SCH (09:00)
== END 2018-11-29 18:45 | DRG 871 ==
LOC: ER 13:25 → 5EST 17:35 → EDBEDREQSVC 17:38 → EDBEDREQ 17:38 → ENRESERV 19:51 → 5EST 11-25 12:06
PROVIDERS: ADMIT Internal Medicine Nephrology; ATTEND Internal Medicine Nephrology
PROC: 30233N1 Transfusion of Nonautologous Red Blood Cells into Peripheral Vein, Percutaneous Approach (ICD-10-PCS; 2018-11-25)
PROC: 0W993ZZ Drainage of Right Pleural Cavity, Percutaneous Approach (ICD-10-PCS; principal; 2018-11-27)
DX: A41.9 Sepsis, unspecified organism (principal); E43 Unspecified severe protein-calorie malnutrition; J96.00 Acute respiratory failure, unspecified whether with hypoxia or hypercapnia; J69.0 Pneumonitis due to inhalation of food and vomit; G93.40 Encephalopathy, unspecified; E87.1 Hypo-osmolality and hyponatremia; E87.2 Acidosis; N39.0 Urinary tract infection, site not specified; I13.0 Hypertensive heart and chronic kidney disease with heart failure and stage 1 through stage 4 chronic kidney disease, or unspecified chronic kidney disease; Z16.21 Resistance to vancomycin; L89.159 Pressure ulcer of sacral region, unspecified stage; E87.5 Hyperkalemia; D50.0 Iron deficiency anemia secondary to blood loss (chronic); N18.9 Chronic kidney disease, unspecified; G30.9 Alzheimer's disease, unspecified; F02.80 Dementia in other diseases classified elsewhere, unspecified severity, without behavioral disturbance, psychotic disturbance, mood disturbance, and anxiety; I25.10 Atherosclerotic heart disease of native coronary artery without angina pectoris; I50.9 Heart failure, unspecified; K21.9 Gastro-esophageal reflux disease without esophagitis; R47.02 Dysphasia; E11.22 Type 2 diabetes mellitus with diabetic chronic kidney disease; B95.2 Enterococcus as the cause of diseases classified elsewhere; Z79.02 Long term (current) use of antithrombotics/antiplatelets; Z79.899 Other long term (current) drug therapy; Z86.718 Personal history of other venous thrombosis and embolism; Z93.3 Colostomy status; Z95.0 Presence of cardiac pacemaker; Z93.1 Gastrostomy status; I69.320 Aphasia following cerebral infarction; Z79.82 Long term (current) use of aspirin; Z87.440 Personal history of urinary (tract) infections; Z68.23 Body mass index [BMI] 23.0-23.9, adult
CPT/HCPCS: 32555; 36415; 36600; 71045; 76604; 80048; 81003; 82040; 82140; 82375; 82550; 82553; 82805; 82962; 83605; 83615; 83735; 83880; 84100; 84145; 84443; 84484; 85014; 85018; 85027; 86850; 86900; 86920; 88108; 88312; 93005; 93970; 94640; 96365; 99291; J0360; J1940; J2185; J2543; J3370; J7030; J7040; J7050; J7608; J7620; P9016; A4315

== ENCOUNTER 2018-12-05 14:33 | Inpatient (IN) | payer MEDICAID, MEDICARE ==
[~2018-12-05] VITALS: Ht 162.6 cm; Wt 66.2 kg
[~2018-12-05 14:33] MED LIST changes: +DOXA4TAB2 PO; +MERO1PIG IV
[2018-12-05 15:59] LABS: CLARITY URINE CLOUDY (CLEAR); COLOR URINE YELLOW (YELLOW); KETONES URINE NEGATIVE (NEGATIVE); LEUKOCYTE ESTERASE URINE 2+ (NEGATIVE); NITRITE URINE NEGATIVE (NEGATIVE); OCCULT BLOOD URINE NEGATIVE (NEGATIVE); PH URINE 5.5 (4.5-8.0); PROTEIN URINE 2+ (NEGATIVE); SPECIFIC GRAVITY URINE 1.019 (1.005-1.030)
[2018-12-05 16:19] LABS: *AMPHETAMINES SCREEN URINE NEGATIVE (NEGATIVE); *BARBITURATES SCREEN URINE NEGATIVE (NEGATIVE); CANNABINOID URINE SCREEN NEGATIVE (NEGATIVE); METHADONE URINE SCREEN NEGATIVE (NEGATIVE); OPIATES URINE SCREEN PRESUMTIVE POSITIVE (NEGATIVE); PHENCYCLIDINE URINE SCREEN NEGATIVE (NEGATIVE)
[2018-12-05 16:21] LABS: *BENZODIAZEPINES SCREEN URINE NEGATIVE (NEGATIVE); *COCAINE SCREEN URINE NEGATIVE (NEGATIVE)
[2018-12-05] MEDS ORDERED: MEROPENEM 1,000 MG in SODIUM CHLORIDE 0.9% 100 ML IV SCH (17:15)
[2018-12-05] MEDS ORDERED: MORPHINE SULFATE 2 MG/ML CPJ (NOT FOR IM USE) IV PRN (17:15)
[2018-12-05] MEDS ORDERED: ONDANSETRON HCL 4MG/2ML INJ IV PRN (17:15)
[2018-12-05 17:23] LABS: BASOPHILS % 0.4 % (0.0-2.0); EOSINOPHILS % 0.7 % (0.0-5.0); HEMATOCRIT. 28.1 % (36.0-48.0); LYMPHOCYTES % 14.9 % (20.0-50.0); MEAN CORPUSCULAR HEMOGLOBIN 28.3 pg (28.0-32.0); MEAN CORPUSCULAR VOLUME 88.5 fL (81.0-99.0); MEAN PLATELET VOLUME 8.5 fl (7.4-10.4); MONOCYTES % 4.2 % (2.0-8.0); NEUTROPHILS % 79.8 % (40.0-76.0); PLATELET 190 x1000/uL (130-400); RED BLOOD CELL COUNT 3.18 mill/uL (4.2-5.4); RED CELL DISTRIBUTION WIDTH 19.1 % (11.6-14.6)
[2018-12-05 17:28] LABS: CHLORIDE 111 mEq/L (98-107); INR 1.1
[2018-12-05 17:33] LABS: ETHANOL BLOOD < 10 mg/dL
[2018-12-05 22:00] VITALS: BP 126/74
[2018-12-05 22:29] VITALS: BP 124/79
[2018-12-05 22:59] VITALS: BP 126/74
[2018-12-05 23:01] LABS: BG BASE EXCESS 8.2 mmol/L (-2.0-2.0); BG CARBOXYHEMOGLOBIN 0.3 % (0.5-1.5); BG DEOXYHEMOGLOBIN 1.3 % (0.0-5.0); BG FRACTION INSPIRED OXYGEN 100; BG HCO3 ACT 32.9 mmol/L (22.0-26.0); BG METHEMOGLOBIN 0.2 % (0.0-1.5); BG OXYGEN SATURATION 98.7 % (92.0-98.5); BG OXYHEMOGLOBIN 98.2 % (94.0-97.0); BG PCO2 47.5 mmHg (35.0-45.0); BG PH 7.459 (7.350-7.450); BG PO2 163.6 mmHg (75.0-100.0); BG SAMPLE SITE LEFT RADIAL; BG TOTAL HEMOGLOBIN 9.3 g/dL (12.0-18.0); BG VENT MODE MASK - NRB
[2018-12-06] VITALS (63 sets, daily range): BP systolic 66–166; BP diastolic 33–96
[2018-12-06] MEDS: METHYLPREDNISOLONE SOD SUCC 125 MG/2 ML VIAL IV SCH ×2 (00:23→05:31)
[2018-12-06] MEDS: HYDRALAZINE HCL 100MG TABLET PO SCH ×4 (00:23→18:00)
[2018-12-06] MEDS: AMOXICILLIN 500 MG CAPSULE PO SCH ×3 (00:24→22:27)
[2018-12-06] MEDS: CLONIDINE 0.3MG TABLET PO SCH ×2 (00:27→05:31)
[2018-12-06] MEDS: MEROPENEM 1,000 MG in SODIUM CHLORIDE 0.9% 100 ML IV SCH ×4 (01:16→22:11)
[2018-12-06 06:07] LABS: BG BASE EXCESS 5.7 mmol/L (-2.0-2.0); BG CARBOXYHEMOGLOBIN 0.8 % (0.5-1.5); BG DEOXYHEMOGLOBIN 12.2 % (0.0-5.0); BG FRACTION INSPIRED OXYGEN 28; BG HCO3 ACT 29.3 mmol/L (22.0-26.0); BG METHEMOGLOBIN 0.3 % (0.0-1.5); BG OXYGEN SATURATION 87.7 % (92.0-98.5); BG OXYHEMOGLOBIN 86.7 % (94.0-97.0); BG PCO2 38.7 mmHg (35.0-45.0); BG PH 7.497 (7.350-7.450); BG PO2 50.4 mmHg (75.0-100.0); BG SAMPLE SITE LEFT RADIAL; BG TOTAL HEMOGLOBIN 11.9 g/dL (12.0-18.0); BG VENT MODE NASAL CANNULA
[2018-12-06 07:15] LABS: CHLORIDE 111 mEq/L (98-107)
[2018-12-06 07:39] LABS: HDL CHOLESTEROL 49 mg/dL (40-59)
[2018-12-06 07:56] LABS: LDL CHOLESTEROL 62 mg/dL (5-100)
[2018-12-06 08:51] LABS: HEMATOCRIT. 36.3 % (36.0-48.0); HEMOGLOBIN. 11.6 g/dL (12.0-16.0); MEAN CORPUSCULAR HEMOGLOBIN 29.5 pg (28.0-32.0); MEAN CORPUSCULAR VOLUME 92.2 fL (81.0-99.0); PLATELET 203 x1000/uL (130-400); RED BLOOD CELL COUNT 3.93 mill/uL (4.2-5.4); RED CELL DISTRIBUTION WIDTH 20.1 % (11.6-14.6)
[2018-12-06] MEDS: FUROSEMIDE 40MG/4ML VIAL IVP SCH (08:54)
[2018-12-06] MEDS: DOXAZOSIN MESYLATE 4MG TABLET PO SCH ×2 (08:54→16:34)
[2018-12-06] MEDS ORDERED: NIFEDIPINE XL 60MG TAB PO SCH (09:00)
[2018-12-06] MEDS ORDERED: IPRATROPIUM/ALBUTEROL 0.5-3(2.5)MG/3ML NEB NEB SCH ×2 (09:30→18:00)
[2018-12-06] MEDS: ACETYLCYSTEINE 100MG/ML 10% VIAL 4ML INH SCH ×2 (09:56→15:57)
[2018-12-06] MEDS ORDERED: NOREPINEPHRINE 16 MG in DEXT 5% WATER 234 ML IV PRN (10:45)
[2018-12-06] MEDS ORDERED: VECURONIUM BROMIDE 10 MG/VIAL IV ONE (11:25)
[2018-12-06] MEDS ORDERED: ETOMIDATE 2MG/ML 10ML VIAL IV ONE (11:25)
[2018-12-06] MEDS ORDERED: LORAZEPAM 2MG/ML CPJ IV PRN (12:00)
[2018-12-06 13:22] LABS: BG BASE EXCESS 5.4 mmol/L (-2.0-2.0); BG CARBOXYHEMOGLOBIN 0.3 % (0.5-1.5); BG DEOXYHEMOGLOBIN 1.1 % (0.0-5.0); BG HCO3 ACT 27.8 mmol/L (22.0-26.0); BG METHEMOGLOBIN 0.2 % (0.0-1.5); BG OXYGEN SATURATION 98.9 % (92.0-98.5); BG OXYHEMOGLOBIN 98.4 % (94.0-97.0); BG PH 7.544 (7.350-7.450); BG PO2 209.6 mmHg (75.0-100.0); BG SAMPLE SITE RIGHT RADIAL; BG TIDAL VOLUME(mL) 500 mL; BG TOTAL HEMOGLOBIN 10.3 g/dL (12.0-18.0); BG VENT MODE VENT - A/C; BG VENT RATE 14 set
[2018-12-06] MEDS: CLONIDINE 0.1MG TABLET PO SCH (14:00)
[2018-12-06] MEDS: FAMOTIDINE 20MG/2ML VIAL IV SCH (14:18)
[2018-12-06] MEDS: IPRATROPIUM/ALBUTEROL 0.5-3(2.5)MG/3ML NEB NEB SCH ×3 (14:18→20:46)
[2018-12-06 14:28] LABS: PLATELET ESTIMATE NORMAL
[2018-12-06] MEDS: METHYLPREDNISOLONE SOD SUCC 40 MG/ML VIAL IV SCH (16:34)
[2018-12-06] MEDS: INSULIN LISPRO 100 UNITS/ML SUBCUT SCH (18:00)
[2018-12-06] MEDS: BLOOD SUGAR DIAGNOSTIC STRIP TEST SCH (18:00)
[2018-12-06] MEDS ORDERED: DEXTROSE 50% WATER 50ML SYRINGE IV PRN (18:15)
[2018-12-07] VITALS (93 sets, daily range): BP systolic 122–212; BP diastolic 53–98
[2018-12-07] MEDS: ACETYLCYSTEINE 100MG/ML 10% VIAL 4ML INH SCH ×3 (00:48→15:34)
[2018-12-07] MEDS: IPRATROPIUM/ALBUTEROL 0.5-3(2.5)MG/3ML NEB NEB SCH ×5 (00:48→20:35)
[2018-12-07] MEDS: METHYLPREDNISOLONE SOD SUCC 40 MG/ML VIAL IV SCH ×3 (02:10→15:04)
[2018-12-07] MEDS: INSULIN LISPRO 100 UNITS/ML SUBCUT SCH ×4 (06:00→17:30)
[2018-12-07] MEDS: BLOOD SUGAR DIAGNOSTIC STRIP TEST SCH ×4 (06:17→17:30)
[2018-12-07] MEDS: MEROPENEM 1,000 MG in SODIUM CHLORIDE 0.9% 100 ML IV SCH ×3 (06:18→22:43)
[2018-12-07] MEDS: CLONIDINE 0.1MG TABLET PO PRN ×3 (08:11→22:47)
[2018-12-07] MEDS: FAMOTIDINE 20MG/2ML VIAL IV SCH (08:11)
[2018-12-07] MEDS: FUROSEMIDE 40MG/4ML VIAL IVP SCH (08:11)
[2018-12-07 09:37] LABS: BG BASE EXCESS 5.3 mmol/L (-2.0-2.0); BG CARBOXYHEMOGLOBIN 0.3 % (0.5-1.5); BG FRACTION INSPIRED OXYGEN 40; BG HCO3 ACT 28.7 mmol/L (22.0-26.0); BG METHEMOGLOBIN 0.2 % (0.0-1.5); BG OXYHEMOGLOBIN 97.5 % (94.0-97.0); BG PH 7.507 (7.350-7.450); BG PO2 115.3 mmHg (75.0-100.0); BG SAMPLE SITE RIGHT RADIAL; BG TIDAL VOLUME(mL) 500 mL; BG VENT MODE VENT - A/C; BG VENT RATE 12 set
[2018-12-07] MEDS: HYDRALAZINE HCL 100MG TABLET PO SCH ×3 (10:32→23:03)
[2018-12-07 10:54] LABS: CHLORIDE 111 mEq/L (98-107)
[2018-12-07] MEDS ORDERED: POTASSIUM CHLORIDE 20MEQ/PACKET NG SCH (12:30)
[2018-12-07] MEDS: AMOXICILLIN 500 MG CAPSULE PO SCH ×2 (12:56→22:43)
[2018-12-07 13:10] LABS: PHOSPHORUS 3.3 mg/dL (2.5-4.9)
[2018-12-07] MEDS: CLONIDINE 0.1MG TABLET PO SCH ×2 (14:54→22:45)
[2018-12-07] MEDS: ENOXAPARIN 40MG/0.4ML SYR SUBCUT SCH (16:27)
[2018-12-07] MEDS ORDERED: AMLODIPINE 5MG TABLET PO SCH (21:00)
[2018-12-07] MEDS ORDERED: METOPROLOL TARTRATE 25MG TABLET PO SCH (21:00)
[2018-12-07] MEDS ORDERED: NICARDIPINE 40MG/200ML PREMIX 200 ML IV PRN (23:30)
[2018-12-07] MEDS ORDERED: NICARDIPINE 50 MG in SODIUM CHLORIDE 0.9% 230 ML IV PRN (23:45)
[2018-12-08] VITALS (94 sets, daily range): BP systolic 121–201; BP diastolic 45–85
[2018-12-08] MEDS: BLOOD SUGAR DIAGNOSTIC STRIP TEST SCH ×5 (00:04→23:50)
[2018-12-08] MEDS: METHYLPREDNISOLONE SOD SUCC 40 MG/ML VIAL IV SCH ×4 (00:09→23:46)
[2018-12-08] MEDS: ACETYLCYSTEINE 100MG/ML 10% VIAL 4ML INH SCH ×3 (00:44→16:48)
[2018-12-08] MEDS: IPRATROPIUM/ALBUTEROL 0.5-3(2.5)MG/3ML NEB NEB SCH ×5 (00:44→20:09)
[2018-12-08] MEDS: INSULIN LISPRO 100 UNITS/ML SUBCUT SCH ×5 (06:00→23:50)
[2018-12-08] MEDS ORDERED: DOXAZOSIN MESYLATE 2MG TABLET PO SCH (06:00)
[2018-12-08] MEDS: MEROPENEM 1,000 MG in SODIUM CHLORIDE 0.9% 100 ML IV SCH ×3 (06:02→21:37)
[2018-12-08] MEDS: HYDRALAZINE HCL 100MG TABLET PO SCH ×4 (06:04→23:54)
[2018-12-08] MEDS: CLONIDINE 0.1MG TABLET PO SCH ×3 (06:08→21:36)
[2018-12-08 07:03] LABS: BG BASE EXCESS 5.3 mmol/L (-2.0-2.0); BG CARBOXYHEMOGLOBIN 0.3 % (0.5-1.5); BG DEOXYHEMOGLOBIN 1.9 % (0.0-5.0); BG HCO3 ACT 29.3 mmol/L (22.0-26.0); BG METHEMOGLOBIN 0.2 % (0.0-1.5); BG OXYGEN SATURATION 98.1 % (92.0-98.5); BG OXYHEMOGLOBIN 97.6 % (94.0-97.0); BG PCO2 40.5 mmHg (35.0-45.0); BG PH 7.477 (7.350-7.450); BG PO2 116.4 mmHg (75.0-100.0); BG SAMPLE SITE RIGHT RADIAL; BG TIDAL VOLUME(mL) 500 mL; BG TOTAL HEMOGLOBIN 9.5 g/dL (12.0-18.0); BG VENT MODE VENT - A/C; BG VENT RATE 10 set
[2018-12-08 07:57] LABS: HEMOGLOBIN. 8.8 g/dL (12.0-16.0); MEAN CORPUSCULAR HEMOGLOBIN 28.9 pg (28.0-32.0); MEAN CORPUSCULAR VOLUME 88.7 fL (81.0-99.0); MEAN PLATELET VOLUME 8.4 fl (7.4-10.4); PLATELET 159 x1000/uL (130-400); RED BLOOD CELL COUNT 3.05 mill/uL (4.2-5.4); RED CELL DISTRIBUTION WIDTH 19.3 % (11.6-14.6)
[2018-12-08 08:07] LABS: CHLORIDE 112 mEq/L (98-107)
[2018-12-08 08:32] LABS: PHOSPHORUS 3.1 mg/dL (2.5-4.9)
[2018-12-08] MEDS ORDERED: NIFEDIPINE XL 30MG TAB PO SCH (09:00)
[2018-12-08] MEDS ORDERED: AMLODIPINE 5MG TABLET PO SCH (09:00)
[2018-12-08] MEDS: AMOXICILLIN 500 MG CAPSULE PO SCH ×2 (09:22→21:36)
[2018-12-08] MEDS: FAMOTIDINE 20MG/2ML VIAL IV SCH (09:22)
[2018-12-08 09:37] LABS: PLATELET ESTIMATE NORMAL
[2018-12-08] MEDS: METOPROLOL TARTRATE 25MG TABLET PO SCH ×2 (09:49→21:37)
[2018-12-08] MEDS: MINOXIDIL 2.5MG TABLET PO SCH (09:50)
[2018-12-08] MEDS: FUROSEMIDE 40MG/4ML VIAL IVP SCH ×2 (09:50→16:10)
[2018-12-08] MEDS: POTASSIUM CHLORIDE 20MEQ/PACKET PO SCH (09:57)
[2018-12-08] MEDS: ENOXAPARIN 40MG/0.4ML SYR SUBCUT SCH (15:53)
[2018-12-08] MEDS: DOXAZOSIN MESYLATE 4MG TABLET PO SCH (18:00)
[2018-12-09] VITALS (45 sets, daily range): BP systolic 98–162; BP diastolic 32–69
[2018-12-09] MEDS: IPRATROPIUM/ALBUTEROL 0.5-3(2.5)MG/3ML NEB NEB SCH ×5 (02:08→20:03)
[2018-12-09] MEDS: ACETYLCYSTEINE 100MG/ML 10% VIAL 4ML INH SCH ×3 (02:08→16:49)
[2018-12-09 05:32] LABS: HEMATOCRIT. 27.4 % (36.0-48.0); HEMOGLOBIN. 8.9 g/dL (12.0-16.0); MEAN CORPUSCULAR HEMOGLOBIN 28.9 pg (28.0-32.0); MEAN CORPUSCULAR VOLUME 89.1 fL (81.0-99.0); MEAN PLATELET VOLUME 8.4 fl (7.4-10.4); PLATELET 161 x1000/uL (130-400); RED BLOOD CELL COUNT 3.07 mill/uL (4.2-5.4); RED CELL DISTRIBUTION WIDTH 19.5 % (11.6-14.6)
[2018-12-09 05:42] LABS: CHLORIDE 113 mEq/L (98-107)
[2018-12-09 05:53] LABS: PHOSPHORUS 2.7 mg/dL (2.5-4.9)
[2018-12-09] MEDS: INSULIN LISPRO 100 UNITS/ML SUBCUT SCH ×5 (06:00→23:54)
[2018-12-09] MEDS: BLOOD SUGAR DIAGNOSTIC STRIP TEST SCH ×4 (06:10→23:54)
[2018-12-09] MEDS: MEROPENEM 1,000 MG in SODIUM CHLORIDE 0.9% 100 ML IV SCH ×2 (06:10→17:33)
[2018-12-09] MEDS: CLONIDINE 0.1MG TABLET PO SCH ×3 (07:05→21:18)
[2018-12-09] MEDS: DOXAZOSIN MESYLATE 4MG TABLET PO SCH ×2 (07:05→17:22)
[2018-12-09] MEDS: HYDRALAZINE HCL 100MG TABLET PO SCH ×5 (07:07→23:54)
[2018-12-09 07:19] LABS: BG BASE EXCESS 6.3 mmol/L (-2.0-2.0); BG CARBOXYHEMOGLOBIN 0.3 % (0.5-1.5); BG DEOXYHEMOGLOBIN 5.2 % (0.0-5.0); BG HCO3 ACT 30.4 mmol/L (22.0-26.0); BG METHEMOGLOBIN 0.8 % (0.0-1.5); BG OXYGEN SATURATION 94.7 % (92.0-98.5); BG OXYHEMOGLOBIN 93.7 % (94.0-97.0); BG PCO2 41.7 mmHg (35.0-45.0); BG PO2 77.2 mmHg (75.0-100.0); BG SAMPLE SITE RIGHT RADIAL; BG TIDAL VOLUME(mL) 500 mL; BG TOTAL HEMOGLOBIN 9.6 g/dL (12.0-18.0); BG VENT MODE VENT - A/C; BG VENT RATE 10 set
[2018-12-09] MEDS: AMOXICILLIN 500 MG CAPSULE PO SCH ×2 (08:41→21:01)
[2018-12-09] MEDS: FUROSEMIDE 40MG/4ML VIAL IVP SCH ×2 (08:41→17:32)
[2018-12-09] MEDS: LACTULOSE 20G/30ML UDC PO SCH ×3 (08:41→21:18)
[2018-12-09] MEDS: FAMOTIDINE 20MG/2ML VIAL IV SCH (08:41)
[2018-12-09] MEDS: METHYLPREDNISOLONE SOD SUCC 40 MG/ML VIAL IV SCH ×3 (08:41→23:57)
[2018-12-09] MEDS: MINOXIDIL 2.5MG TABLET PO SCH (08:42)
[2018-12-09] MEDS: POTASSIUM CHLORIDE 20MEQ/PACKET PO SCH (08:42)
[2018-12-09 08:47] LABS: PLATELET ESTIMATE NORMAL
[2018-12-09] MEDS: METOPROLOL TARTRATE 25MG TABLET PO SCH ×2 (09:00→21:02)
[2018-12-09] MEDS: ENOXAPARIN 40MG/0.4ML SYR SUBCUT SCH (15:01)
[2018-12-10] VITALS (34 sets, daily range): BP systolic 93–163; BP diastolic 42–74
[2018-12-10] MEDS: ACETYLCYSTEINE 100MG/ML 10% VIAL 4ML INH SCH ×3 (00:16→16:02)
[2018-12-10] MEDS: IPRATROPIUM/ALBUTEROL 0.5-3(2.5)MG/3ML NEB NEB SCH ×6 (00:16→20:16)
[2018-12-10 05:25] LABS: HEMATOCRIT. 27.1 % (36.0-48.0); HEMOGLOBIN. 8.7 g/dL (12.0-16.0); MEAN CORPUSCULAR HEMOGLOBIN 29.6 pg (28.0-32.0); MEAN CORPUSCULAR VOLUME 91.8 fL (81.0-99.0); MEAN PLATELET VOLUME 8.5 fl (7.4-10.4); PLATELET 175 x1000/uL (130-400); RED BLOOD CELL COUNT 2.96 mill/uL (4.2-5.4); RED CELL DISTRIBUTION WIDTH 19.4 % (11.6-14.6)
[2018-12-10 05:28] LABS: CHLORIDE 115 mEq/L (98-107)
[2018-12-10] MEDS: LACTULOSE 20G/30ML UDC PO SCH (06:17)
[2018-12-10] MEDS: DOXAZOSIN MESYLATE 4MG TABLET PO SCH ×2 (06:17→17:34)
[2018-12-10] MEDS: BLOOD SUGAR DIAGNOSTIC STRIP TEST SCH ×3 (06:17→17:16)
[2018-12-10] MEDS: CLONIDINE 0.1MG TABLET PO SCH ×3 (06:17→23:08)
[2018-12-10] MEDS: HYDRALAZINE HCL 100MG TABLET PO SCH ×3 (06:18→17:34)
[2018-12-10] MEDS: INSULIN LISPRO 100 UNITS/ML SUBCUT SCH ×3 (06:24→17:23)
[2018-12-10] MEDS: MEROPENEM 1,000 MG in SODIUM CHLORIDE 0.9% 100 ML IV SCH ×2 (06:34→17:33)
[2018-12-10 07:50] LABS: PLATELET ESTIMATE NORMAL
[2018-12-10 08:44] LABS: BG BASE EXCESS 4.5 mmol/L (-2.0-2.0); BG CARBOXYHEMOGLOBIN 0.3 % (0.5-1.5); BG DEOXYHEMOGLOBIN 3.4 % (0.0-5.0); BG FRACTION INSPIRED OXYGEN 40; BG HCO3 ACT 27.7 mmol/L (22.0-26.0); BG OXYGEN SATURATION 96.6 % (92.0-98.5); BG OXYHEMOGLOBIN 96.3 % (94.0-97.0); BG PCO2 35.9 mmHg (35.0-45.0); BG PH 7.506 (7.350-7.450); BG PO2 91.7 mmHg (75.0-100.0); BG PRESSURE SUPPORT 15; BG SAMPLE SITE RIGHT RADIAL; BG TIDAL VOLUME(mL) 500 mL; BG TOTAL HEMOGLOBIN 9.3 g/dL (12.0-18.0); BG VENT MODE VENT - SIMV; BG VENT RATE 10 set
[2018-12-10] MEDS: METHYLPREDNISOLONE SOD SUCC 40 MG/ML VIAL IV SCH ×2 (09:00→17:33)
[2018-12-10] MEDS: FUROSEMIDE 40MG/4ML VIAL IVP SCH (09:02)
[2018-12-10] MEDS: METOPROLOL TARTRATE 25MG TABLET PO SCH ×2 (09:02→21:00)
[2018-12-10] MEDS: MINOXIDIL 2.5MG TABLET PO SCH (09:02)
[2018-12-10] MEDS: AMOXICILLIN 500 MG CAPSULE PO SCH ×2 (09:02→20:27)
[2018-12-10] MEDS: FAMOTIDINE 20MG/2ML VIAL IV SCH (09:03)
[2018-12-10] MEDS: POTASSIUM CHLORIDE 20MEQ/PACKET PO SCH (09:10)
[2018-12-10] MEDS: MICAFUNGIN 100MG in NORMAL SALINE 100ML IV SCH (12:45)
[2018-12-10 16:12] LABS: BG BASE EXCESS 3.8 mmol/L (-2.0-2.0); BG CARBOXYHEMOGLOBIN 0.3 % (0.5-1.5); BG DEOXYHEMOGLOBIN 3.4 % (0.0-5.0); BG FRACTION INSPIRED OXYGEN 40; BG HCO3 ACT 27.5 mmol/L (22.0-26.0); BG METHEMOGLOBIN 0.4 % (0.0-1.5); BG OXYGEN SATURATION 96.6 % (92.0-98.5); BG OXYHEMOGLOBIN 95.9 % (94.0-97.0); BG PCO2 37.8 mmHg (35.0-45.0); BG PH 7.479 (7.350-7.450); BG PO2 89.7 mmHg (75.0-100.0); BG PRESSURE SUPPORT 8; BG SAMPLE SITE RIGHT RADIAL; BG TOTAL HEMOGLOBIN 10.3 g/dL (12.0-18.0); BG VENT MODE VENT - CPAP
[2018-12-10] MEDS: ENOXAPARIN 40MG/0.4ML SYR SUBCUT SCH (17:33)
[2018-12-11] VITALS (29 sets, daily range): BP systolic 110–150; BP diastolic 46–66
[2018-12-11] MEDS: ACETYLCYSTEINE 100MG/ML 10% VIAL 4ML INH SCH ×2 (01:01→07:18)
[2018-12-11] MEDS: IPRATROPIUM/ALBUTEROL 0.5-3(2.5)MG/3ML NEB NEB SCH ×6 (01:01→20:31)
[2018-12-11 05:28] LABS: BASOPHILS % 0.2 % (0.0-2.0); HEMATOCRIT. 28.1 % (36.0-48.0); HEMOGLOBIN. 8.7 g/dL (12.0-16.0); LYMPHOCYTES % 8.8 % (20.0-50.0); MEAN CORPUSCULAR HEMOGLOBIN 29.5 pg (28.0-32.0); MEAN CORPUSCULAR VOLUME 95.1 fL (81.0-99.0); MEAN PLATELET VOLUME 8.2 fl (7.4-10.4); MONOCYTES % 5.7 % (2.0-8.0); NEUTROPHILS % 85.3 % (40.0-76.0); PLATELET 140 x1000/uL (130-400); RED BLOOD CELL COUNT 2.95 mill/uL (4.2-5.4); RED CELL DISTRIBUTION WIDTH 20.2 % (11.6-14.6)
[2018-12-11] MEDS: MEROPENEM 1,000 MG in SODIUM CHLORIDE 0.9% 100 ML IV SCH ×2 (05:46→17:08)
[2018-12-11] MEDS: CLONIDINE 0.1MG TABLET PO SCH ×3 (06:00→21:52)
[2018-12-11] MEDS: INSULIN LISPRO 100 UNITS/ML SUBCUT SCH ×4 (06:38→17:07)
[2018-12-11] MEDS: BLOOD SUGAR DIAGNOSTIC STRIP TEST SCH ×4 (06:40→17:01)
[2018-12-11] MEDS: HYDRALAZINE HCL 100MG TABLET PO SCH ×3 (06:42→17:08)
[2018-12-11] MEDS: DOXAZOSIN MESYLATE 4MG TABLET PO SCH ×2 (06:44→17:08)
[2018-12-11] MEDS: AMOXICILLIN 500 MG CAPSULE PO SCH ×2 (08:00→21:51)
[2018-12-11] MEDS: MINOXIDIL 2.5MG TABLET PO SCH (08:00)
[2018-12-11] MEDS: FAMOTIDINE 20MG/2ML VIAL IV SCH (08:00)
[2018-12-11] MEDS: METHYLPREDNISOLONE SOD SUCC 40 MG/ML VIAL IV SCH ×2 (08:00→17:07)
[2018-12-11] MEDS: METOPROLOL TARTRATE 25MG TABLET PO SCH ×2 (08:00→21:52)
[2018-12-11] MEDS: MICAFUNGIN 100MG in NORMAL SALINE 100ML IV SCH (12:23)
[2018-12-11] MEDS: ENOXAPARIN 40MG/0.4ML SYR SUBCUT SCH (16:27)
[2018-12-12] VITALS (29 sets, daily range): BP systolic 123–178; BP diastolic 52–87
[2018-12-12] MEDS: IPRATROPIUM/ALBUTEROL 0.5-3(2.5)MG/3ML NEB NEB SCH ×7 (00:19→23:47)
[2018-12-12] MEDS: HYDRALAZINE HCL 100MG TABLET PO SCH ×4 (01:07→17:02)
[2018-12-12] MEDS: INSULIN LISPRO 100 UNITS/ML SUBCUT SCH ×4 (05:25→18:00)
[2018-12-12] MEDS: CLONIDINE 0.1MG TABLET PO SCH ×3 (05:25→22:18)
[2018-12-12] MEDS: BLOOD SUGAR DIAGNOSTIC STRIP TEST SCH ×4 (05:25→18:06)
[2018-12-12] MEDS: DOXAZOSIN MESYLATE 4MG TABLET PO SCH ×2 (05:26→22:17)
[2018-12-12] MEDS: MEROPENEM 1,000 MG in SODIUM CHLORIDE 0.9% 100 ML IV SCH ×2 (05:27→18:06)
[2018-12-12 06:34] LABS: BASOPHILS % 0.2 % (0.0-2.0); EOSINOPHILS % 3.8 % (0.0-5.0); HEMATOCRIT. 29.7 % (36.0-48.0); HEMOGLOBIN. 9.9 g/dL (12.0-16.0); LYMPHOCYTES % 9.9 % (20.0-50.0); MEAN CORPUSCULAR HEMOGLOBIN 28.7 pg (28.0-32.0); MEAN CORPUSCULAR VOLUME 86.6 fL (81.0-99.0); MEAN PLATELET VOLUME 8.3 fl (7.4-10.4); MONOCYTES % 5.6 % (2.0-8.0); NEUTROPHILS % 80.5 % (40.0-76.0); PLATELET 165 x1000/uL (130-400); RED BLOOD CELL COUNT 3.43 mill/uL (4.2-5.4); RED CELL DISTRIBUTION WIDTH 18.8 % (11.6-14.6)
[2018-12-12] MEDS: AMOXICILLIN 500 MG CAPSULE PO SCH ×2 (08:48→22:19)
[2018-12-12] MEDS: MINOXIDIL 2.5MG TABLET PO SCH (08:48)
[2018-12-12] MEDS: FAMOTIDINE 20MG/2ML VIAL IV SCH (08:49)
[2018-12-12] MEDS: METOPROLOL TARTRATE 25MG TABLET PO SCH ×2 (08:49→22:18)
[2018-12-12] MEDS: METHYLPREDNISOLONE SOD SUCC 40 MG/ML VIAL IV SCH ×2 (08:49→17:00)
[2018-12-12] MEDS ORDERED: SODIUM POLYSTYRENE SULFONATE 15 G/60 ML BOT PO NR (09:00)
[2018-12-12] MEDS: ACETAMINOPHEN 650MG/20.3ML UDC GT PRN (10:05)
[2018-12-12] MEDS: MICAFUNGIN 100MG in NORMAL SALINE 100ML IV SCH (12:07)
[2018-12-12] MEDS ORDERED: MORPHINE SULFATE 2 MG/ML CPJ (NOT FOR IM USE) IV PRN (16:00)
[2018-12-12] MEDS ORDERED: LORAZEPAM 2MG/ML CPJ IV PRN (16:00)
[2018-12-12] MEDS: ENOXAPARIN 40MG/0.4ML SYR SUBCUT SCH (16:59)
[2018-12-12] MEDS ORDERED: DOXAZOSIN MESYLATE 4MG TABLET PO SCH (18:00)
[2018-12-12] MEDS ORDERED: MEROPENEM 1,000 MG in SODIUM CHLORIDE 0.9% 100 ML IV SCH (22:00)
[2018-12-12] MEDS: AMLODIPINE 5MG TABLET PO SCH (22:17)
[2018-12-12] MEDS: ACETYLCYSTEINE 100MG/ML 10% VIAL 4ML INH SCH (23:46)
[2018-12-13] VITALS (12 sets, daily range): BP systolic 135–189; BP diastolic 61–82
[2018-12-13] MEDS: ACETYLCYSTEINE 100MG/ML 10% VIAL 4ML INH SCH ×3 (00:50→15:41)
[2018-12-13] MEDS: METHYLPREDNISOLONE SOD SUCC 40 MG/ML VIAL IV SCH ×3 (00:56→16:20)
[2018-12-13] MEDS: BLOOD SUGAR DIAGNOSTIC STRIP TEST SCH ×4 (00:56→18:16)
[2018-12-13] MEDS: HYDRALAZINE HCL 100MG TABLET PO SCH ×4 (00:57→18:30)
[2018-12-13] MEDS: IPRATROPIUM/ALBUTEROL 0.5-3(2.5)MG/3ML NEB NEB SCH ×5 (04:23→21:35)
[2018-12-13] MEDS: INSULIN LISPRO 100 UNITS/ML SUBCUT SCH ×4 (06:00→18:00)
[2018-12-13] MEDS: CLONIDINE 0.1MG TABLET PO SCH ×3 (06:11→21:30)
[2018-12-13] MEDS: MEROPENEM 1,000 MG in SODIUM CHLORIDE 0.9% 100 ML IV SCH ×2 (06:12→18:30)
[2018-12-13 07:13] LABS: HEMATOCRIT. 31.1 % (36.0-48.0); HEMOGLOBIN. 10.1 g/dL (12.0-16.0); MEAN CORPUSCULAR HEMOGLOBIN 28.5 pg (28.0-32.0); MEAN CORPUSCULAR VOLUME 87.6 fL (81.0-99.0); MEAN PLATELET VOLUME 8.2 fl (7.4-10.4); PLATELET 211 x1000/uL (130-400); RED BLOOD CELL COUNT 3.54 mill/uL (4.2-5.4); RED CELL DISTRIBUTION WIDTH 19.2 % (11.6-14.6)
[2018-12-13] MEDS: FAMOTIDINE 20MG/2ML VIAL IV SCH (08:17)
[2018-12-13] MEDS: METOPROLOL TARTRATE 25MG TABLET PO SCH ×2 (08:17→21:32)
[2018-12-13] MEDS: MINOXIDIL 2.5MG TABLET PO SCH (08:18)
[2018-12-13] MEDS: AMLODIPINE 5MG TABLET PO SCH ×2 (08:18→21:31)
[2018-12-13 08:25] LABS: CHLORIDE 114 mEq/L (98-107)
[2018-12-13 08:33] LABS: PHOSPHORUS 3.6 mg/dL (2.5-4.9)
[2018-12-13] MEDS: MICAFUNGIN 100MG in NORMAL SALINE 100ML IV SCH (12:10)
[2018-12-13 13:17] LABS: NUCLEATED RED BLOOD CELLS 1 /100 WBC; PLATELET ESTIMATE NORMAL
[2018-12-13] MEDS: ENOXAPARIN 40MG/0.4ML SYR SUBCUT SCH (16:20)
[2018-12-13] MEDS: DOXAZOSIN MESYLATE 4MG TABLET PO SCH (21:31)
[2018-12-14] VITALS (14 sets, daily range): BP systolic 125–179; BP diastolic 55–83
[2018-12-14] MEDS: ACETYLCYSTEINE 100MG/ML 10% VIAL 4ML INH SCH ×4 (00:50→16:31)
[2018-12-14] MEDS: IPRATROPIUM/ALBUTEROL 0.5-3(2.5)MG/3ML NEB NEB SCH ×7 (00:50→20:24)
[2018-12-14] MEDS: METHYLPREDNISOLONE SOD SUCC 40 MG/ML VIAL IV SCH ×2 (01:00→08:40)
[2018-12-14] MEDS: SODIUM HYPOCHLORITE 0.125% 473ML SOLUTION TOP SCH ×2 (03:13→08:39)
[2018-12-14] MEDS: BLOOD SUGAR DIAGNOSTIC STRIP TEST SCH ×4 (05:44→17:22)
[2018-12-14] MEDS: HYDRALAZINE HCL 100MG TABLET PO SCH ×4 (05:44→17:31)
[2018-12-14] MEDS: MEROPENEM 1,000 MG in SODIUM CHLORIDE 0.9% 100 ML IV SCH ×2 (05:44→17:31)
[2018-12-14] MEDS: CLONIDINE 0.1MG TABLET PO SCH ×3 (05:44→22:49)
[2018-12-14] MEDS: INSULIN LISPRO 100 UNITS/ML SUBCUT SCH ×4 (05:51→17:32)
[2018-12-14] MEDS: METOPROLOL TARTRATE 25MG TABLET PO SCH ×2 (08:40→22:49)
[2018-12-14] MEDS: ZINC SULFATE 220 MG ( 50 ) CAPSULE GT SCH (08:40)
[2018-12-14] MEDS: MINOXIDIL 2.5MG TABLET PO SCH (08:40)
[2018-12-14] MEDS: AMLODIPINE 5MG TABLET PO SCH ×2 (08:40→22:50)
[2018-12-14] MEDS: ASCORBIC ACID 500 MG TABLET GT SCH (08:40)
[2018-12-14] MEDS: FAMOTIDINE 20MG/2ML VIAL IV SCH (08:41)
[2018-12-14] MEDS: MICAFUNGIN 100MG in NORMAL SALINE 100ML IV SCH (12:10)
[2018-12-14 14:01] LABS: HEMATOCRIT. 27.9 % (36.0-48.0); MEAN CORPUSCULAR HEMOGLOBIN 28.4 pg (28.0-32.0); MEAN CORPUSCULAR VOLUME 88.4 fL (81.0-99.0); MEAN PLATELET VOLUME 8.3 fl (7.4-10.4); PLATELET 186 x1000/uL (130-400); RED BLOOD CELL COUNT 3.16 mill/uL (4.2-5.4); RED CELL DISTRIBUTION WIDTH 19.3 % (11.6-14.6)
[2018-12-14 14:48] LABS: PLATELET ESTIMATE NORMAL
[2018-12-14] MEDS: ENOXAPARIN 40MG/0.4ML SYR SUBCUT SCH (15:41)
[2018-12-14] MEDS: ACETAMINOPHEN 650MG/20.3ML UDC GT PRN (22:50)
[2018-12-14] MEDS: DOXAZOSIN MESYLATE 4MG TABLET PO SCH (22:50)
[2018-12-15] VITALS (11 sets, daily range): BP systolic 121–158; BP diastolic 44–76
[2018-12-15] MEDS: IPRATROPIUM/ALBUTEROL 0.5-3(2.5)MG/3ML NEB NEB SCH ×3 (00:36→20:31)
[2018-12-15] MEDS: ACETYLCYSTEINE 100MG/ML 10% VIAL 4ML INH SCH (00:38)
[2018-12-15] MEDS: HYDRALAZINE HCL 100MG TABLET PO SCH ×4 (01:39→17:50)
[2018-12-15] MEDS: MEROPENEM 1,000 MG in SODIUM CHLORIDE 0.9% 100 ML IV SCH ×2 (05:44→17:28)
[2018-12-15] MEDS: BLOOD SUGAR DIAGNOSTIC STRIP TEST SCH ×4 (05:45→17:43)
[2018-12-15] MEDS: CLONIDINE 0.1MG TABLET PO SCH ×2 (05:45→13:47)
[2018-12-15] MEDS: INSULIN LISPRO 100 UNITS/ML SUBCUT SCH ×4 (05:45→17:51)
[2018-12-15 08:03] LABS: EOSINOPHILS % 1.9 % (0.0-5.0); HEMATOCRIT. 29.2 % (36.0-48.0); HEMOGLOBIN. 9.5 g/dL (12.0-16.0); LYMPHOCYTES % 9.8 % (20.0-50.0); MEAN CORPUSCULAR VOLUME 88.8 fL (81.0-99.0); MEAN PLATELET VOLUME 8.2 fl (7.4-10.4); MONOCYTES % 5.7 % (2.0-8.0); NEUTROPHILS % 82.6 % (40.0-76.0); PLATELET 200 x1000/uL (130-400); RED BLOOD CELL COUNT 3.29 mill/uL (4.2-5.4); RED CELL DISTRIBUTION WIDTH 19.8 % (11.6-14.6)
[2018-12-15] MEDS: SODIUM HYPOCHLORITE 0.125% 473ML SOLUTION TOP SCH (09:00)
[2018-12-15] MEDS ORDERED: METHYLPREDNISOLONE SOD SUCC 40 MG/ML VIAL IV SCH (09:00)
[2018-12-15] MEDS: FAMOTIDINE 20MG/2ML VIAL IV SCH (09:18)
[2018-12-15] MEDS: ASCORBIC ACID 500 MG TABLET GT SCH (09:19)
[2018-12-15] MEDS: AMLODIPINE 5MG TABLET PO SCH (09:19)
[2018-12-15] MEDS: METOPROLOL TARTRATE 25MG TABLET PO SCH (09:19)
[2018-12-15] MEDS: MINOXIDIL 2.5MG TABLET PO SCH (09:20)
[2018-12-15] MEDS: ZINC SULFATE 220 MG ( 50 ) CAPSULE GT SCH (09:38)
[2018-12-15] MEDS ORDERED: DEXTROSE 5% WATER 1,000 ML IV SCH (10:30)
[2018-12-15] MEDS: MICAFUNGIN 100MG in NORMAL SALINE 100ML IV SCH (12:36)
[2018-12-15] MEDS: ENOXAPARIN 40MG/0.4ML SYR SUBCUT SCH (16:22)
== END 2018-12-15 21:20 | disposition short-term general hospital (02) | DRG 853 ==
LOC: ER 14:33 → EDBEDREQ 17:20 → EDBEDREQTM 17:20 → ENRESERV 17:43 → 7WST 19:45 → 5EST 22:19 → MICUNO 12-06 11:35 → CVICU 12-06 12:18 → 5EST 12-12 15:15
PROVIDERS: ADMIT Internal Medicine Nephrology; ATTEND Internal Medicine Nephrology
PROC: 5A1955Z Respiratory Ventilation, Greater than 96 Consecutive Hours (ICD-10-PCS; principal; 2018-12-06)
PROC: 0BH17EZ Insertion of Endotracheal Airway into Trachea, Via Natural or Artificial Opening (ICD-10-PCS; 2018-12-06)
PROC: 02HV33Z Insertion of Infusion Device into Superior Vena Cava, Percutaneous Approach (ICD-10-PCS; 2018-12-06)
PROC: B548ZZA Ultrasonography of Superior Vena Cava, Guidance (ICD-10-PCS; 2018-12-06)
PROC: 0QB10ZZ Excision of Sacrum, Open Approach (ICD-10-PCS; 2018-12-10)
DX: A41.9 Sepsis, unspecified organism (principal); L89.154 Pressure ulcer of sacral region, stage 4; E43 Unspecified severe protein-calorie malnutrition; J96.01 Acute respiratory failure with hypoxia; J69.0 Pneumonitis due to inhalation of food and vomit; R65.21 Severe sepsis with septic shock; I50.33 Acute on chronic diastolic (congestive) heart failure; G92 Toxic encephalopathy; N17.0 Acute kidney failure with tubular necrosis; E87.0 Hyperosmolality and hypernatremia; I13.0 Hypertensive heart and chronic kidney disease with heart failure and stage 1 through stage 4 chronic kidney disease, or unspecified chronic kidney disease; I42.9 Cardiomyopathy, unspecified; E87.1 Hypo-osmolality and hyponatremia; B37.49 Other urogenital candidiasis; R47.02 Dysphasia; R13.10 Dysphagia, unspecified; D64.9 Anemia, unspecified; E86.9 Volume depletion, unspecified; N18.9 Chronic kidney disease, unspecified; E11.22 Type 2 diabetes mellitus with diabetic chronic kidney disease; F03.90 Unspecified dementia, unspecified severity, without behavioral disturbance, psychotic disturbance, mood disturbance, and anxiety; I07.1 Rheumatic tricuspid insufficiency; I27.22 Pulmonary hypertension due to left heart disease; I25.10 Atherosclerotic heart disease of native coronary artery without angina pectoris; J44.9 Chronic obstructive pulmonary disease, unspecified; K21.9 Gastro-esophageal reflux disease without esophagitis; Z66 Do not resuscitate; Z93.1 Gastrostomy status; I69.920 Aphasia following unspecified cerebrovascular disease; Z95.0 Presence of cardiac pacemaker; Z68.25 Body mass index [BMI] 25.0-25.9, adult; Z79.82 Long term (current) use of aspirin; Z79.899 Other long term (current) drug therapy
CPT/HCPCS: 36415; 36600; 71045; 74176; 76937; 80048; 80061; 80305; 80320; 81003; 82140; 82375; 82805; 82962; 83605; 83735; 84100; 84132; 84134; 84484; 87070; 93005; 93970; 94003; 94640; 99285; C1725; J1650; J1815; J1940; J2060; J2185; J2248; J2270; J2920; J2930; J3490; J7050; J7070; J7608; J7620; A4315; G0480